=== PATIENT | female | born 1945 | race Caucasian/White ===

== ENCOUNTER 2020-10-11 05:15 | Inpatient (IN) | payer MEDICARE ==
[~2020-10-11] VITALS: Ht 165.1 cm; Wt 99.9 kg
[2020-10-11 07:06] LABS: BASOPHILS ABSOLUTE AUTO 0.04 K/mm3 (0.00-0.23); BASOPHILS PERCENT AUTO 0 % (0-2); EOSINOPHILS ABSOLUTE AUTO 0.04 K/mm3 (0.00-0.68); EOSINOPHILS PERCENT AUTO 0 % (0-6); Hematocrit 50.8 % (33.0-51.0); Hemoglobin 17.1 g/dL (11.5-16.0); IMMATURE GRAN PERCENT AUTO 1 % (0-1); LYMPHOCYTES ABSOLUTE AUTO 1.48 K/mm3 (0.84-5.20); LYMPHOCYTES PERCENT AUTO 10 % (21-46); MONOCYTES ABSOLUTE AUTO 0.71 K/mm3 (0.16-1.47); MONOCYTES PERCENT AUTO 5 % (4-13); Mean Corpuscular HGB 30.4 pg (26.0-34.0); Mean Corpuscular HGB Conc 33.7 g/dL (31.5-36.5); Mean Corpuscular Volume 90 fL (80-100); Mean Platelet Volume 9.5 fL (9.1-12.4); NEUTROPHILS PERCENT AUTO 84 % (41-73); Platelet Count 197 K/mm3 (150-400); RDW Coefficient Variation 11.8 % (11.7-14.2); RDW Standard Deviation 39.1 fL (35.1-46.3); Red Blood Cell Count 5.63 M/mm3 (3.80-5.20); White Blood Cell Count 15.17 K/mm3 (4.00-11.30)
[2020-10-11 07:21] LABS: Albumin, Blood 3.3 g/dL (3.4-5.0); Albumin/Globulin Ratio 0.7 (0.8-1.8); Bilirubin, Total 1.3 mg/dL (0.1-1.0); Calcium, Blood 9.7 mg/dL (8.5-10.1); Creatinine, Blood 1.05 mg/dL (0.40-1.00); Globulin, Blood 4.7 g/dL (2.2-4.0); Potassium, Blood 4.3 mmol/L (3.5-5.5)
[2020-10-11 11:00] LABS: Source, Urine Catheter
[2020-10-11 11:17] LABS: Bilirubin, Urine Neg (Neg); Blood, Urine 2+ (Neg); Glucose Qualitative, Urine 4+ (Neg); Ketones, Urine 2+ (Neg); Leukocyte Esterase, Urine Neg (Neg); Nitrite, Urine Neg (Neg); Protein, Urine 2+ (Neg); Specific Gravity, Urine 1.015 (1.003-1.022); Urobilinogen, Urine NORM (Normal)
[2020-10-11 11:25] LABS: Glucose, Blood 493 mg/dL (70-99)
[2020-10-11 11:27] LABS: Appearance, Urine Clear (Clear); Color, Urine Yellow (P-Yellow)
[2020-10-11 11:28] LABS: Bacteria Not Seen /hpf; Squamous Epithelial Cells Not Seen /hpf (Few); White Blood Cells, Urine Not Seen /hpf (0-5)
[2020-10-11 12:06] LABS: Influenza A, PCR NEGATIVE (NEGATIVE); Influenza B, PCR NEGATIVE (NEGATIVE); Resp Syncytial Virus, PCR NEGATIVE (NEGATIVE); SARS-Cov-2 (COVID-19) PCR, MMC NEGATIVE (NEGATIVE)
[2020-10-11] MEDS ORDERED: FURO20 PO (12:37)
[2020-10-11] MEDS ORDERED: METO100ER PO (12:37)
[2020-10-11] MEDS ORDERED: CLOP75 PO (12:38)
[2020-10-11] MEDS ORDERED: ATOR20 PO (12:38)
[2020-10-11] MEDS ORDERED: ESCI20 PO (12:38)
[2020-10-11] MEDS ORDERED: LISI20 PO (12:39)
[2020-10-11] MEDS ORDERED: TRAZ50 PO (12:39)
--- NOTE | 2020-10-11 12:39 | NUR ---
DEVIN JUAN CONTACT INFO CELL PHONE [phone]
[2020-10-11 15:48] LABS: PCO2 Arterial 50.5 mmHg (35-45); PO2 Arterial 102 mmHg (80-100); pH Blood Arterial 7.39 (7.35-7.45)
[2020-10-11 16:50] LABS: U Amphetamine Screen Not Detected; U Barbituate Screen Not Detected; U Benzodiazapine Screen Not Detected; U Buprenorphine Screen Not Detected; U Cannabinoids Screen Not Detected; U Cocaine Screen Not Detected; U Methadone Screen Not Detected; U Methamphetamine Screen Not Detected; U Opiates Screen Not Detected; U Oxycodone Screen Not Detected; U Phencyclidine Screen Not Detected; U Propoxyphene Screen Not Detected
--- NOTE | 2020-10-11 17:56 | NUR ---
SHIFT SUMMARY SINCE ARRIVAL TO THE UNIT, PT HAS BEEN CONFUSED. HAVING A HARD TIME UNDERSTANDING WHY HER HIP HURTS. PAIN BETTER CONTROLLED W/ PO MEDS. BLOOD SUGARS HAVE BEEN VERY HIGH. DR LEE CALLED ABOUT THIS x 2. IVF INFUSING.
[2020-10-12 04:35] LABS: BASOPHILS ABSOLUTE AUTO 0.01 K/mm3 (0.00-0.23); BASOPHILS PERCENT AUTO 0 % (0-2); EOSINOPHILS ABSOLUTE AUTO 0.03 K/mm3 (0.00-0.68); EOSINOPHILS PERCENT AUTO 0 % (0-6); Hematocrit 45.8 % (33.0-51.0); Hemoglobin 15.1 g/dL (11.5-16.0); IMMATURE GRAN ABSOLUTE AUTO 0.06 K/mm3 (0.00-0.10); IMMATURE GRAN PERCENT AUTO 0 % (0-1); LYMPHOCYTES ABSOLUTE AUTO 1.24 K/mm3 (0.84-5.20); LYMPHOCYTES PERCENT AUTO 8 % (21-46); MONOCYTES ABSOLUTE AUTO 0.93 K/mm3 (0.16-1.47); MONOCYTES PERCENT AUTO 6 % (4-13); Mean Corpuscular HGB 30.3 pg (26.0-34.0); Mean Corpuscular Volume 92 fL (80-100); Mean Platelet Volume 9.8 fL (9.1-12.4); NEUTROPHILS ABSOLUTE AUTO 12.82 K/mm3 (1.96-9.15); NEUTROPHILS PERCENT AUTO 85 % (41-73); Platelet Count 164 K/mm3 (150-400); RDW Coefficient Variation 12.1 % (11.7-14.2); RDW Standard Deviation 41.1 fL (35.1-46.3); Red Blood Cell Count 4.99 M/mm3 (3.80-5.20); White Blood Cell Count 15.09 K/mm3 (4.00-11.30)
[2020-10-12 04:55] LABS: Albumin, Blood 2.9 g/dL (3.4-5.0); Albumin/Globulin Ratio 0.8 (0.8-1.8); Bilirubin, Total 1.2 mg/dL (0.1-1.0); Bun/Creatinine Ratio 25.5 (12.0-20.0); Calcium, Blood 9.1 mg/dL (8.5-10.1); Creatinine, Blood 1.02 mg/dL (0.40-1.00); Globulin, Blood 3.8 g/dL (2.2-4.0); Phosphorus, Blood 3.9 mg/dL (2.5-4.9); Total Protein, Blood 6.7 g/dL (6.4-8.2)
--- NOTE | 2020-10-12 05:03 | NUR ---
SHIFT SUMMARY: PT CONFUSED THROUGHOUT NIGHT. ALERT TO SELF AND FAMILY ONLY. PT WILL RESPOND TO QUESTIONS BUT IS NONSENSICAL. PT ALSO HAVING DIFFICULT TIME FINISHING SENTENCES. PT INTERMITTENTLY PICKING AT THINGS. ATTEMPTING TO PULL OFF PULSE OXIMETER. TAKING OFF OXYGEN. PT INCONTINENT OF STOOL THIS SHIFT. LOPEZ PATENT AND DRAINING TO GRAVITY. 2 MAX ASSIST FOR REPOSITIONING. PAINFUL T/O NIGHT. PT MEDICATED WITH 50MCG OF FENTANYL AND NORCO PER EMAR.
--- NOTE | 2020-10-12 07:45 | NUR ---
pt awake laying in bed iv leaking turned off removed will replace pt painful with any movement
--- NOTE | 2020-10-12 09:56 | NUR ---
dr strong by to see pt earlier dr azul by to see pt
--- NOTE | 2020-10-12 12:19 | NUR ---
meds given as sched pt took off her o2 tried to placed her cpap pt removed put back on her o2 nc kept on improved b/p
--- NOTE | 2020-10-12 15:33 | NUR ---
pt agitated removing oxygen will not keep on fent 25 mcg x2 doses pt spit out her crushed norco with applesuce
--- NOTE | 2020-10-12 15:57 | NUR ---
dr azul called re pt confusion zypismael ordered
--- NOTE | 2020-10-12 17:22 | NUR ---
ASSUMED CARE: REPORT RECIEVED FROM VIVI SAUER. PT RESTING IN BED AT THIS TIME. NO ACUTE NEEDS OR CONCERNS AT THIS TIME.
--- NOTE | 2020-10-12 18:04 | NUR ---
SHIFT SUMMARY: PT RESTING IN BED AT THIS TIME. ZYPREXA GIVEN BY VIVI PRIOR TO TRANSFERRING CARE TO THIS RN. NO ACUTE NEEDS OR CONCERNS AT THIS TIME.
--- NOTE | 2020-10-12 22:12 | NUR ---
ASSUMED CARE AT 1900. PT RESTING IN BED, SLEEPING. BIOX ON. VITALS TAKEN AT ABOUT 2030. PT OPENED EYES TO VERBAL STIMULI, BUT NOT ANSWERING QUESTIONS. WHEN R LEG WAS TOUCHED, PT GRIMACED, MOANED, AND PUT HAND ON HIP. PT WAS NOTED TO HAVE HAD A BM. MEDICATED FOR PAIN PRIOR TO CHANGING. PT CHANGED AND ATTENS PLACED WITH 3X ASSIST, PT REPOSITIONED ON L SIDE SHE SEEMED TO BE MORE COMFORTABLE IN THIS POSITION. PT IS CURRENTLY RESTING IN BED, BED ALARM ON.
[2020-10-13 04:12] LABS: Hematocrit 48.2 % (33.0-51.0); Hemoglobin 15.4 g/dL (11.5-16.0); Mean Corpuscular Volume 94 fL (80-100); Mean Platelet Volume 10.1 fL (9.1-12.4); Platelet Count 159 K/mm3 (150-400); RDW Coefficient Variation 12.2 % (11.7-14.2); RDW Standard Deviation 42.6 fL (35.1-46.3); Red Blood Cell Count 5.13 M/mm3 (3.80-5.20); White Blood Cell Count 13.34 K/mm3 (4.00-11.30)
[2020-10-13 04:28] LABS: Albumin, Blood 2.6 g/dL (3.4-5.0); Anion Gap 2 mmol/L (6-16); Blood Urea Nitrogen 25 mg/dL (8-24); Bun/Creatinine Ratio 24.3 (12.0-20.0); CO2, Blood 33 mmol/L (21-32); Calcium, Blood 8.8 mg/dL (8.5-10.1); Chloride, Blood 106 mmol/L (98-108); Creatinine, Blood 1.03 mg/dL (0.40-1.00); Glomerular Filtration Rate 56 (60-); Glucose, Blood 261 mg/dL (70-99); Phosphorus, Blood 3.6 mg/dL (2.5-4.9); Potassium, Blood 4.1 mmol/L (3.5-5.5); Sodium, Blood 141 mmol/L (136-145)
--- NOTE | 2020-10-13 04:56 | NUR ---
SHIFT SUMMARY PT HAS BEEN SLEEPING MOST OF THE NIGHT, AWAKENING TO VERBAL STIMULI BUT NOT ANSWERING QUESTIONS. PT HAS DEMONSTRATED DISCOMFORT NONVERBALLY AND HAS BEEN MEDICATED PRN PER ORDER. SHE IS USING 4-5L O2 NC WITH CONT. BIOX AT BEDSIDE. PT HAD BM THIS SHIFT. ATTENS PLACED, CHECKED MULT TIMES. LOPEZ IN PLACE, PATENT, OFF FLOOR. RESTING AT THIS TIME, BED ALARM ON.
--- NOTE | 2020-10-13 13:51 | NUR ---
TO DAY SURGERY VIA BED
--- NOTE | 2020-10-13 14:38 | NUR ---
INTO SDS VIA BED FROM SURG FLOOR. History, Chart, Medications and Allergies reviewed before start of procedure.Patient confirms NPO status and agrees with scheduled surgery. Surgical site prepped with 2% Chlorhexidine cloth wipe. Lungs clear T/O to Auscultation.TELEPHONE CONSENT FOR ANESTHESIA, PROCEDURE, AND BLOOD CONSENT OBTAINED FROM SON, DR. PEACE, DR. QUIGLEY, AND CATHY SAUER.
--- NOTE | 2020-10-13 20:05 | NUR ---
SHIFT SUMMARY PT A&OX3, VSS/5LNC(BASELINE), S/P R JUAN R HIP, AQUACEL CDI, ABDUCT/IMMOBILIZER IN PLACE. DENIES PAIN. DENIES N&V, DARIAN PO ADA. LOPEZ PATENT & DRAINING YELLOW URINE, STAT LOCK ON, OFF FLOOR. REPORT GIVEN TO ANGELO SAUER.
[2020-10-14 04:47] LABS: BASOPHILS ABSOLUTE AUTO 0.02 K/mm3 (0.00-0.23); BASOPHILS PERCENT AUTO 0 % (0-2); EOSINOPHILS ABSOLUTE AUTO 0.04 K/mm3 (0.00-0.68); EOSINOPHILS PERCENT AUTO 0 % (0-6); Hematocrit 42.1 % (33.0-51.0); Hemoglobin 13.3 g/dL (11.5-16.0); IMMATURE GRAN ABSOLUTE AUTO 0.05 K/mm3 (0.00-0.10); IMMATURE GRAN PERCENT AUTO 0 % (0-1); LYMPHOCYTES ABSOLUTE AUTO 1.57 K/mm3 (0.84-5.20); LYMPHOCYTES PERCENT AUTO 11 % (21-46); MONOCYTES ABSOLUTE AUTO 1.71 K/mm3 (0.16-1.47); MONOCYTES PERCENT AUTO 12 % (4-13); Mean Corpuscular HGB 30.3 pg (26.0-34.0); Mean Corpuscular HGB Conc 31.6 g/dL (31.5-36.5); Mean Corpuscular Volume 96 fL (80-100); Mean Platelet Volume 9.8 fL (9.1-12.4); NEUTROPHILS ABSOLUTE AUTO 10.48 K/mm3 (1.96-9.15); NEUTROPHILS PERCENT AUTO 76 % (41-73); Platelet Count 136 K/mm3 (150-400); RDW Coefficient Variation 12.2 % (11.7-14.2); RDW Standard Deviation 43.6 fL (35.1-46.3); Red Blood Cell Count 4.39 M/mm3 (3.80-5.20); White Blood Cell Count 13.87 K/mm3 (4.00-11.30)
--- NOTE | 2020-10-14 05:04 | NUR ---
SHIFT SUMMARY PT HAS BEEN A/O X3-4 OVERNIGHT. ANSWERING QUESTIONS APPROPRIATELY. PT DID PULL AN IV OUT THIS SHIFT. WHEN ASKED ABOUT IT, SHE SAID SHE DID NOT REMEMBER PULLING THE IV. PT ALSO REMOVED AQUACEL DRESSING TO R HIP MULT TIMES, AGAIN STATING THAT SHE DID NOT REMEMBER REMOVING DRESSING. INCISION HAS BEEN CLEANED AND NEW AQUACEL REPLACED X3 SO FAR. MEDIPORE TAPE PLACED OVER AQUACEL IN ATTEMPT TO KEEP DRESSING IN PLACE. IMMOBILIZER HAS BEEN IN PLACE OVERNIGHT AND PT HAS BEEN REPOSITIONED MULT TIMES. USING 4L O2 NC WITH O2 SAT ABOVE 94%. PT IS TOLERATING PO INTAKE. LOPEZ IN PLACE, PATENT, OFF FLOOR. PARTIAL BEDBATH COMPLETED THIS SHIFT. PT RESTING AT THIS TIME, BED ALARM ON, CALL LIGHT IN REACH.
[2020-10-14 05:05] LABS: Albumin, Blood 2.4 g/dL (3.4-5.0); Anion Gap 4 mmol/L (6-16); Blood Urea Nitrogen 38 mg/dL (8-24); Bun/Creatinine Ratio 29.2 (12.0-20.0); CO2, Blood 30 mmol/L (21-32); Calcium, Blood 8.3 mg/dL (8.5-10.1); Chloride, Blood 107 mmol/L (98-108); Glomerular Filtration Rate 42 (60-); Glucose, Blood 137 mg/dL (70-99); Phosphorus, Blood 2.7 mg/dL (2.5-4.9); Potassium, Blood 3.2 mmol/L (3.5-5.5); Sodium, Blood 141 mmol/L (136-145)
--- NOTE | 2020-10-14 07:54 | NUR ---
pt sleeping wakes to verbal stimuli pt has bulky dressing c/d/i pt has some dried crust to her l eye
--- NOTE | 2020-10-14 12:04 | NUR ---
DR PEACE BY TO SEE PT
--- NOTE | 2020-10-14 14:49 | NUR ---
pt wakes to verbal and physical stimuli meds given with milk
--- NOTE | 2020-10-14 17:45 | NUR ---
pt still sleeping attempted multiple times to get her to eat and drink
[2020-10-15 04:30] LABS: BASOPHILS ABSOLUTE AUTO 0.02 K/mm3 (0.00-0.23); BASOPHILS PERCENT AUTO 0 % (0-2); EOSINOPHILS ABSOLUTE AUTO 0.04 K/mm3 (0.00-0.68); EOSINOPHILS PERCENT AUTO 0 % (0-6); Hematocrit 44.8 % (33.0-51.0); Hemoglobin 13.8 g/dL (11.5-16.0); IMMATURE GRAN ABSOLUTE AUTO 0.08 K/mm3 (0.00-0.10); IMMATURE GRAN PERCENT AUTO 1 % (0-1); LYMPHOCYTES ABSOLUTE AUTO 0.68 K/mm3 (0.84-5.20); LYMPHOCYTES PERCENT AUTO 6 % (21-46); MONOCYTES ABSOLUTE AUTO 1.19 K/mm3 (0.16-1.47); MONOCYTES PERCENT AUTO 10 % (4-13); Mean Corpuscular HGB 30.2 pg (26.0-34.0); Mean Corpuscular HGB Conc 30.8 g/dL (31.5-36.5); Mean Corpuscular Volume 98 fL (80-100); Mean Platelet Volume 9.7 fL (9.1-12.4); NEUTROPHILS ABSOLUTE AUTO 9.99 K/mm3 (1.96-9.15); NEUTROPHILS PERCENT AUTO 83 % (41-73); Platelet Count 172 K/mm3 (150-400); RDW Coefficient Variation 12.5 % (11.7-14.2); RDW Standard Deviation 45.2 fL (35.1-46.3); Red Blood Cell Count 4.57 M/mm3 (3.80-5.20)
--- NOTE | 2020-10-15 07:37 | NUR ---
PT WITH INCREASED CONFUSION THIS AM. PULLING AT TUBES, TOSSING CALL LIGHT TO THE FLOOR.TAKING GOWN OFF AND EVERY TIME NURSE REPLACES,PT TAKES IT OFF AGAIN. TOSSING BLANKETS,TRYING TO PULL DSNG OFF R HIP.UNABLE TO REORIENT PT TO SITUATION AND LOCATION. SNUGGLED HER IN BLANKETS AND REASSURED HER. PT STARTING TO CALM SOME THIS AM.
[2020-10-15 08:53] LABS: Albumin, Blood 2.4 g/dL (3.4-5.0); Anion Gap 3 mmol/L (6-16); Blood Urea Nitrogen 41 mg/dL (8-24); Bun/Creatinine Ratio 29.3 (12.0-20.0); CO2, Blood 32 mmol/L (21-32); Calcium, Blood 8.6 mg/dL (8.5-10.1); Chloride, Blood 108 mmol/L (98-108); Glomerular Filtration Rate 39 (60-); Glucose, Blood 116 mg/dL (70-99); Phosphorus, Blood 3.6 mg/dL (2.5-4.9); Potassium, Blood 4.8 mmol/L (3.5-5.5); Sodium, Blood 143 mmol/L (136-145)
--- NOTE | 2020-10-15 17:04 | NUR ---
PT AGGITATED AND CONFUSED WHEN DOING PT CARE AND TURNING, CALLS STAFF NAMES. OTHERWISE PT LAYS QUIETLY. PT VERY PAINFUL WITH TURNS, ATTEMPTED TO GIVE HYDROCODONE, AND PT THREW PILL ACROSS ROOM. SPOKE WITH DR. GARSIA CONCERNING PT AGGITATION AND CONFUSION TODAY, SEE NEW ORDERS, FLUIDS INFUSING. WILL CTM
--- NOTE | 2020-10-15 17:51 | NUR ---
SUMMARY: PT IS S/P R JUAN R HIP. PT ALERT, CONTINUES TO BE OREINTED TO SELF ONLY, HAS NON SENSICAL TALK AND AGGITATION AND PAIN WHEN MOVED. ALARM ON. MEPILEX PLACED AT COCCYX, SLIGHT REDNESS NOTED. SURGICAL SITE WNL CURRENTLY, PT PICKING AT DRESSING THIS MORNING, AQUACEL CHANGED. PT HAS NOT ATTEMPTED OOB, HAS NOT PICKED AT DRESSINGS THE REST OF THE DAY. PT HAS TAKEN SMALL AMOUNT OF PO WHEN OFFERED. SPO2 STABLE ON 2L AT THIS TIME, PT HAS REMOVED SEVERAL TIMES AND DESATS TO 88%. COUGH AND DEEP BREATHE ENCOURAGED. PT MEDICATED FOR PAIN AND APPEARS COMFORTABLE CURRENTLY. WILL CTM AND REPORT TO TIFF SAUER.
[2020-10-16 04:38] LABS: BASOPHILS ABSOLUTE AUTO 0.02 K/mm3 (0.00-0.23); BASOPHILS PERCENT AUTO 0 % (0-2); EOSINOPHILS ABSOLUTE AUTO 0.11 K/mm3 (0.00-0.68); EOSINOPHILS PERCENT AUTO 1 % (0-6); Hematocrit 44.5 % (33.0-51.0); Hemoglobin 13.8 g/dL (11.5-16.0); IMMATURE GRAN ABSOLUTE AUTO 0.05 K/mm3 (0.00-0.10); IMMATURE GRAN PERCENT AUTO 1 % (0-1); LYMPHOCYTES ABSOLUTE AUTO 1.31 K/mm3 (0.84-5.20); LYMPHOCYTES PERCENT AUTO 12 % (21-46); MONOCYTES PERCENT AUTO 15 % (4-13); Mean Corpuscular HGB 30.1 pg (26.0-34.0); Mean Corpuscular Volume 97 fL (80-100); NEUTROPHILS PERCENT AUTO 71 % (41-73); Platelet Count 178 K/mm3 (150-400); RDW Coefficient Variation 12.3 % (11.7-14.2); RDW Standard Deviation 44.2 fL (35.1-46.3); Red Blood Cell Count 4.58 M/mm3 (3.80-5.20); White Blood Cell Count 10.79 K/mm3 (4.00-11.30)
[2020-10-16 04:59] LABS: Albumin, Blood 2.2 g/dL (3.4-5.0); Anion Gap 2 mmol/L (6-16); Blood Urea Nitrogen 32 mg/dL (8-24); Bun/Creatinine Ratio 28.8 (12.0-20.0); CO2, Blood 32 mmol/L (21-32); Calcium, Blood 8.9 mg/dL (8.5-10.1); Chloride, Blood 110 mmol/L (98-108); Creatinine, Blood 1.11 mg/dL (0.40-1.00); Glomerular Filtration Rate 51 (60-); Glucose, Blood 152 mg/dL (70-99); Magnesium, Blood 2.2 mg/dL (1.6-2.4); Phosphorus, Blood 2.7 mg/dL (2.5-4.9); Potassium, Blood 4.7 mmol/L (3.5-5.5); Sodium, Blood 144 mmol/L (136-145)
--- NOTE | 2020-10-16 17:19 | NUR ---
SUMMARY PT ATE BREAKFAST AND TOOK MORNING MEDS AND THEN SLEPT T/O DAY. WAKES WHEN SPOKEN TO, DENIES ANY NEEDS AND THEN RETURNS TO SLEEP. SLEPT THROUGH LUNCH. DOES NOT APPEAR TO BE IN ANY DISTRESS. CALL LIGHT IN REACH.
[2020-10-17 04:37] LABS: Albumin, Blood 2.1 g/dL (3.4-5.0); Anion Gap 2 mmol/L (6-16); Blood Urea Nitrogen 28 mg/dL (8-24); Bun/Creatinine Ratio 29.9 (12.0-20.0); CO2, Blood 33 mmol/L (21-32); Calcium, Blood 9.2 mg/dL (8.5-10.1); Chloride, Blood 108 mmol/L (98-108); Creatinine, Blood 0.94 mg/dL (0.40-1.00); Glomerular Filtration Rate >60 (60-); Glucose, Blood 169 mg/dL (70-99); Phosphorus, Blood 2.7 mg/dL (2.5-4.9); Potassium, Blood 4.6 mmol/L (3.5-5.5); Sodium, Blood 143 mmol/L (136-145)
--- NOTE | 2020-10-17 07:41 | NUR ---
SUMMARY PT LESS CONFUSED TONIGHT. COOPERATIVE WT CARE.RENAL LABS ARE WNL THIS . DAY RN AGREES TO CONFIRM IF JESSICA SHOULD BE DCD TODAY.
--- NOTE | 2020-10-17 18:22 | NUR ---
SHIFT SUMMARY PT ORIENTED TO SELF THROUGH OUT SHIFT. FREQUENT NONSENSICAL CONVERSATION AND ANSWERS. CONFUSED ABOUT LOCATION AND SITUATION. PLEASANT AND COOPERATIVE. ABLE TO FOLLOW DIRECTIONS WITH CUES. TOLERATING ADA DIET. TAKES PILLS WHOLE WITH CORKY PUDDING OR APPLE SAUCE. 2 PERSON ASSIST WITH WALKER AND GAIT BELT TO TRANSFER. JESSICA PEREIRA THIS AFTERNOON, ATTENDS IN PLACE. AQUACEL IN PLACE TO RIGHT HIP. ADDUCTOR PILLOW IN PLACE BETWEEN LOWER LEGS. UNABLE TO RECALL HIP PRECAUTIONS WHEN ASKED. WAITING DISCHARGE TO SNF OR [facility] CARE.
--- NOTE | 2020-10-17 22:05 | NUR ---
PT WAS ABLE TO VOID A LARGE AMT, FLOODING THE ATTENDS AND SHEETS, FULL LINEN CHANGE WAS DONE PER DEPUTY REGISTER OF DEEDS WITH ASSISTANCE FOR ANOTHER STAFF MEMBER. PT BP WAS ALSO BETTER ON RE-CHECK, NO NEED FOR ADMINISTRATION OF HYDRALAZINE.
--- NOTE | 2020-10-17 23:10 | NUR ---
RECEIVED REPORT AND ASSUMED CARE OF PT. MALENA IS RESTING QUIETLY IN BED WITH HER EYES CLOSED, RESPIRATIONS EVEN AND UNLABORED. WCTM.
--- NOTE | 2020-10-18 05:20 | NUR ---
SHIFT SUMMARY: MALENA AROUSES EASILY AND RESPONDS APPROPRIATELY. AQUACELL DRY INTACT TO RIGHT HIP, ADDUCTOR PILLOW IN PLACE. ATTENDS IN PLACE, INCONTINENT OF BLADDER. SHE DENIES PAIN THIS MORNING. SHE IS LYING IN BED WITH HER CALL LIGHT IN REACH. WILL REPORT TO DAY SHIFT RN.
--- NOTE | 2020-10-18 11:37 | NUR ---
BOWEL CARE DISCHARGE PLANNING CALLED TO INQUIRE ABOUT NO BM IN 6 DAYS. ONLY BID COLACE ORDERED. CALLED DR GARSIA WHO STATED SHE WOULD PUT IN BOWEL CARE ORDERS. WILL BEGIN AGGRESSIVE BOWEL CARE SOON ORDERS ARE PLACED. SNF BED AVAILABLE SOON PATIENT HAS BM.
--- NOTE | 2020-10-18 17:32 | NUR ---
SHIFT SUMMARY PATIENT CONFUSED BUT PLEASANT AND COOPERATIVE. UP TO CHAIR THIS AFTERNOON. VOIDING WELL WITH OCCASIONAL WET ATTENDS BUT ALSO VOIDS IN COMMODE. IV FLUIDS RUNNING. STARTED AGRESSIVE BOWEL CARE THIS AFTERNOON, OBTAINED ORDERS FROM DR GARSIA. PLAN IS DISCHARGE TO SNF ONCE PATIENT HAS BM. RIGHT HIP AQUACEL C/D/I.
--- NOTE | 2020-10-19 04:54 | NUR ---
SHIFT SUMMARY: NO ACUTE CHANGES THIS SHIFT. PT REMAINS PLEASANTLY CONFUSED. CALM AND COOPERATIVE WITH CARE. PT OUT OF BED TO BSC WITH 2-3 MAX ASSIST AND FWW+GB. INCONTINENT IN ATTENDS. NEW MEPILEX DRESSING PLACED TO COCCYX. PT MEDICATED WITH PO PAIN MEDICATION PER EMAR. TOLERATING PILLS WHOLE IN PUDDING. AWAITING SNF PLACEMENT.
--- NOTE | 2020-10-19 08:53 | NUR ---
OT AT BEDSIDE WORKING WITH PT
--- NOTE | 2020-10-19 09:10 | NUR ---
meds given with breakfast
--- NOTE | 2020-10-19 10:26 | NUR ---
pt still up in recliner chair dr cesar by to see pt fluids given
--- NOTE | 2020-10-19 14:07 | NUR ---
EARLIER PT OOB TO BSC DULCOLAX SUPP GIVEN PER NEW ORDER
--- NOTE | 2020-10-19 17:59 | NUR ---
PT EATING DINNER
--- NOTE | 2020-10-20 06:40 | NUR ---
SUMMARY PT WITH HX SLEEP APNEA. TRIED CPAP TONIGHT, BUT IT WAS NOT EFFECTIVE TO KEEP SATS ABOVE 90% 02 @ 3L.
--- NOTE | 2020-10-20 17:39 | NUR ---
SHIFT SUMMARY PT POST OP FOR R HIP SURGERY. A/O X3 BUT FORGETFUL AT TIMES. UP TO A CHAIR/BSC WITH A 2 PERSON ASSIST. NEEDS A LOT OF COACHING TO AMBULATE. MEDICATED FOR PAIN X1 THIS SHIFT. AQUACELL DRESSING CHANGED THIS SHIFT. VSS.
[2020-10-21 04:08] LABS: BASOPHILS ABSOLUTE AUTO 0.04 K/mm3 (0.00-0.23); BASOPHILS PERCENT AUTO 0 % (0-2); EOSINOPHILS ABSOLUTE AUTO 0.32 K/mm3 (0.00-0.68); EOSINOPHILS PERCENT AUTO 3 % (0-6); Hemoglobin 12.7 g/dL (11.5-16.0); IMMATURE GRAN ABSOLUTE AUTO 0.06 K/mm3 (0.00-0.10); IMMATURE GRAN PERCENT AUTO 1 % (0-1); LYMPHOCYTES ABSOLUTE AUTO 2.11 K/mm3 (0.84-5.20); LYMPHOCYTES PERCENT AUTO 18 % (21-46); MONOCYTES ABSOLUTE AUTO 1.37 K/mm3 (0.16-1.47); MONOCYTES PERCENT AUTO 12 % (4-13); Mean Corpuscular HGB 30.1 pg (26.0-34.0); Mean Corpuscular HGB Conc 31.8 g/dL (31.5-36.5); Mean Corpuscular Volume 95 fL (80-100); Mean Platelet Volume 9.1 fL (9.1-12.4); NEUTROPHILS ABSOLUTE AUTO 7.86 K/mm3 (1.96-9.15); NEUTROPHILS PERCENT AUTO 67 % (41-73); Platelet Count 253 K/mm3 (150-400); RDW Coefficient Variation 11.9 % (11.7-14.2); RDW Standard Deviation 41.2 fL (35.1-46.3); Red Blood Cell Count 4.22 M/mm3 (3.80-5.20); White Blood Cell Count 11.76 K/mm3 (4.00-11.30)
[2020-10-21 04:24] LABS: Anion Gap 0 mmol/L (6-16); Blood Urea Nitrogen 23 mg/dL (8-24); Bun/Creatinine Ratio 26.4 (12.0-20.0); CO2, Blood 38 mmol/L (21-32); Calcium, Blood 9.6 mg/dL (8.5-10.1); Chloride, Blood 104 mmol/L (98-108); Creatinine, Blood 0.87 mg/dL (0.40-1.00); Glomerular Filtration Rate >60 (60-); Glucose, Blood 160 mg/dL (70-99); Magnesium, Blood 1.7 mg/dL (1.6-2.4); Phosphorus, Blood 3.8 mg/dL (2.5-4.9); Potassium, Blood 4.8 mmol/L (3.5-5.5); Sodium, Blood 142 mmol/L (136-145)
--- NOTE | 2020-10-21 07:55 | NUR ---
PT REPORTS BAD H/A 02/04 PO NORCO GIVEN LIGHTS TURNED OFF
--- NOTE | 2020-10-21 07:59 | NUR ---
SUMMARY PT INTERRMITTENTLY CONFUSED TONIGHT,ALTHOUGH DOES NOT APPEAR REALTED TO PAIN MEDS.
--- NOTE | 2020-10-21 09:51 | NUR ---
PT OOB IN RECLINER CHAIR MEPLIX PLACED ON COCCYX MEDS GIVEN EARLER WITH BREAKFAST OT WORKED WITH PT
--- NOTE | 2020-10-21 11:05 | NUR ---
pt working with physical therapy
--- NOTE | 2020-10-21 12:00 | NUR ---
DIETARY BY TO SEE PT PT C/O PAIN TO PHYSICAL THERAPY PO TYLENOL GIVEN VS NORCO DUE TO PT BEING MORE SLEEPY
--- NOTE | 2020-10-21 13:49 | NUR ---
pt sleeping in recliner
--- NOTE | 2020-10-22 04:30 | NUR ---
SHIFT SUMMARY POD#9 RIGHT POSTERIOR HEMIARTHROPLASTY. AAOX4. DISCOMFORT DECREASED WITH X1 NORCO YESTARDAY EVENING. NO NAUSEA/EMESIS. DRESSING TO RIGHT HIP C/D/I WITH ABDUCTOR PILLOW IN PLACE BETWEEN BLE. PPP, DENIES N/T, MOVES TOES WELL BLE. X1 LARGE INCONTINENT VOID IN ATTENDS THIS SHIFT. PT RESTED WELL T/O NIGHT WITH CPAP IN PLACE. NO ACUTE CHANGES OVER NIGHT. PT CURRENTLY RESTING IN BED WITH CALL LIGHT IN REACH.
--- NOTE | 2020-10-22 18:24 | NUR ---
SHIFT SUMMARY PATIENT ALERT TO SELF AND COOPERATIVE THROUGHOUT SHIFT. TOLERATING ADA DIET. MEDICATED FOR PAIN PRN. 1 PERSON ASSIST TO CHAIR AND BACK TO BED. AQUACEL TO RIGHT HIP C/D/I. PLAN TO DISCHARGE TO SNF WHEN BED AVAILABLE.
--- NOTE | 2020-10-23 07:10 | NUR ---
SHIFT SUMMARY PT RESTED WELL T/O NIGHT. AAOX3. DISCOMFORT CONTROLLED WITH X1 NORCO YESTARDAY EVENING. NO NAUSEA/EMESIS. DRESSING TO RIGHT HIP D/C/I. PPP, DENIES N/T, MOVES TOES BLE. NO ACUTE CHANGES OVER NIGHT. BED ALARM ON FOR SAFETY. INCONTINENT IN ATTENDS. PT CURRENTLY RESTING IN BED WITH CALL LIGHT IN REACH.
--- NOTE | 2020-10-23 18:24 | NUR ---
SHIFT SUMMARY PATIENT CONFUSED BUT PLEASANT AND COOPERATIVE THROUGHOUT SHIFT. PATIENT DOES HAVE DIFFICULTY FOLLOWING DIRECTIONS. UP TO CHAIR FOR MEALS. INC OF URINE. MEDICATED FOR PAIN PRN. AQUACEL TO RIGHT HIP C/D/I. TOLERATING ADA DIET WITH INSULIN COVERAGE FOR BLOOD GLUCOSE. PATIENT RESTING IN BED AT THIS TIME.
--- NOTE | 2020-10-24 05:24 | NUR ---
SHIFT SUMMARY PT RESTED WELL T/O NIGHT. AAOX3. INTERMITTENTLY CONFUSED T/O NIGHT. DISCOMFORT DECREASED WITH X1 NORCO YESTARDAY PM. NO NAUSEA/EMESIS. DRESSING TO RIGHT HIP C/D/I. ABDUCTOR PILLOW BETWEEN LEGS. INCONTINENT IN ATTENDS. X1 LARGE FORMED BM THIS SHIFT. BED ALARM ON FOR SAFETY. PT CURRENTLY RESTING IN BED WITH CALL LIGHT IN REACH.
--- NOTE | 2020-10-24 18:12 | NUR ---
SUMMARY NO ACUTE CHANGES T/O SHIFT. PT WORKED W/THERAPY AND SAT UP IN CHAIR. FORGETFUL OF PRECAUTIONS. THERAPY PLACED REMINDER SHEET ON BOARD. PT TOLERATING DIET. MEDICATED ONCE DURING SHIFT FOR PAIN. CALL LIGHT IN REACH.
--- NOTE | 2020-10-25 07:35 | NUR ---
PT VSS T/O NIGHT, HR DID DROP TO 48 WHILE PT SLEEPING. SATS >94% ON 2.5L O2NC. PT CONFUSED AND AGITATED EARLY IN SHIFT, IS MORE PLEASANT AND COOPERATIVE THIS AM. PT VOIDING LARGE INCONTINENT VOIDS, ATTENDS CHANGED PRN. PT REPOSITIONED FREQ T/O NIGHT, IS ASSISTING W/REPOSITIONING IN BED. AWAITING DC PLANS.
--- NOTE | 2020-10-25 17:17 | NUR ---
SUMMARY NO ACUTE CHANGES T/O SHIFT. PT'S MENTATION VARIES BETWEEN ORIENTED AND CONFUSED AT TIMES. BECAME AGITATED THIS AFTERNOON; MEDICATED FOR PAIN. AGITATION HAS DECREASED. PT HAD DIFFICULTY FOLLOWING INSTRUCTION WHEN TRANSFERRING FROM CHAIR TO BED THIS AFTERNOON. MOD TWO PERSON ASSIST. PT RESTING IN BED AT THIS TIME. BED ALARM ON AND CALL LIGHT IN REACH.
--- NOTE | 2020-10-26 04:28 | NUR ---
POD 13 S/P R JUAN R HIP. PT VSS T/O NIGHT; 3L O2 NC IN PLACE WHILE SLEEPING; SATS >94%, HR TRENDING 50-60'S WHILE SLEEPING. DRESSING CDI. ABDUCTOR PILLOW IN PLACE DURING NIGHT. ATTENDS CHANGED PRN. PT REPOSITIONED PRN T/O NIGHT, PROTECTIVE DRESSING TO COCCYX. PT ANXIOUS AND AGITATED AT TIMES, SUPPORT AND REORIENTED PRN. BED ALARM ON FOR SAFETY. CONT TO AWAIT DC PLANNING.
--- NOTE | 2020-10-26 07:45 | NUR ---
pt removed o2 went down to 87 % put back on and went back up to 93 % pt sleepin
--- NOTE | 2020-10-26 09:45 | NUR ---
PT FINISHED WITH BREAKFAST OOB TO RECLINER WITH OT THIS AM MEDS GIVEN PT STATED SHE WOULD LIKE TO LAY BACK A LITTLE FILLS FULL AFTER BREAKFAST REFUSED HER STOOL SOFTENERS
--- NOTE | 2020-10-26 10:23 | NUR ---
OOB TO BSC FOR XL BM
--- NOTE | 2020-10-26 14:10 | NUR ---
pt sitting up in chair req pain meds 1 tab po norco given
--- NOTE | 2020-10-26 18:29 | NUR ---
ASSISTED PT INTO BED FROM RECLINER CHAIR
--- NOTE | 2020-10-27 06:01 | NUR ---
SHIFT SUMMARY PT HAS BEEN ALERT AND CONFUSED OVERNIGHT, AT TIMES BECOMING AGITATED. MED FOR PAIN X1 THIS SHIFT. PT REPORTED PAIN TO BE IN HER BACK AND R HIP. BED ALARM ON FOR SAFETY. ABDUCTOR PILLOW IN PLACE OVERNIGHT. PT IS INCONTINENT; ATTENS ON, CHECKING AND CHANGING PRN. PT WAS ABLE TO GET SOME SLEEP AFTER MED WITH TRAZODONE AND PAIN MEDICATION. RESTING IN BED AT THIS TIME, CALL LIGHT IN REACH.
[2020-10-27 13:11] LABS: Influenza A, PCR NEGATIVE (NEGATIVE); Influenza B, PCR NEGATIVE (NEGATIVE); Resp Syncytial Virus, PCR NEGATIVE (NEGATIVE); SARS-Cov-2 (COVID-19) PCR, MMC NEGATIVE (NEGATIVE)
--- NOTE | 2020-10-27 15:29 | NUR ---
DISCHARGE SUMMARY PT ALERT AND ORIENTED TO SELF. TOLERATING ADA DIET. CONFUSED AT BASELINE. POD 14 FOR RIGHT HIP REPAIR. MELINA REMOVED AND AQUACEL REPLACED. BLOOD GLUCOSE MANAGED WITH INSULIN. DISHARGE ORDERS OBTAINED. DISCHARGE TO SNF ARRANGED BY DISCHARGE PLANNING. IV REMOVED. PATIENT TOLERATED WELL. PT LEFT UNIT VIA MEDICAL TRANSPORT IN WHEELCHAIR AT 1515. CALLED REPORT TO SNF RN.
== END 2020-10-27 15:30 | disposition home or self-care (01) | DRG 522 ==
LOC: ER 05:15 → SURS 08:03
PROVIDERS: Emergency Medicine; Internal Medicine; Orthopaedic Surgery; ADMIT Internal Medicine
PROC: 5A09357 Assistance with Respiratory Ventilation, Less than 24 Consecutive Hours, Continuous Positive Airway Pressure (ICD-10-PCS; 2020-10-13)
PROC: 0SRR0JZ Replacement of Right Hip Joint, Femoral Surface with Synthetic Substitute, Open Approach (ICD-10-PCS; principal; 2020-10-13 14:00)
DX: S72.001A Fracture of unspecified part of neck of right femur, initial encounter for closed fracture (principal); E87.1 Hypo-osmolality and hyponatremia; G93.40 Encephalopathy, unspecified; N17.9 Acute kidney failure, unspecified; J96.11 Chronic respiratory failure with hypoxia; E86.0 Dehydration; Z20.822 Contact with and (suspected) exposure to COVID-19; N18.30 Chronic kidney disease, stage 3 unspecified; I27.21 Secondary pulmonary arterial hypertension; I12.9 Hypertensive chronic kidney disease with stage 1 through stage 4 chronic kidney disease, or unspecified chronic kidney disease; E11.42 Type 2 diabetes mellitus with diabetic polyneuropathy; E11.65 Type 2 diabetes mellitus with hyperglycemia; E11.22 Type 2 diabetes mellitus with diabetic chronic kidney disease; J44.9 Chronic obstructive pulmonary disease, unspecified; I25.10 Atherosclerotic heart disease of native coronary artery without angina pectoris; G47.33 Obstructive sleep apnea (adult) (pediatric); F32.9 Major depressive disorder, single episode, unspecified; Z88.0 Allergy status to penicillin; Z99.81 Dependence on supplemental oxygen; Z79.02 Long term (current) use of antithrombotics/antiplatelets; Z79.899 Other long term (current) drug therapy; W18.30XA Fall on same level, unspecified, initial encounter
CPT/HCPCS: 0241U; 36415; 36600; 51702; 70450; 71045; 72125; 72170; 72192; 73502; 73552; 76377; 80053; 80069; 81001; 82803; 82947; 83036; 83735; 84100; 85025; 85027; 88305; 88311; 93005; 93010; 93306; 94660; 94762; 96374-59; 97110; 97162; 97166; 97530; 97530-CQ; 97535; 99285-25; A9270; C1776; J0171; J0360; J0735; J1650; J1885; J2250; J2405; J2704; J2795; J3010; J7030; J7050; J7120

== ENCOUNTER 2020-12-21 20:12 | Inpatient (IN) | payer MEDICARE ==
[~2020-12-21] VITALS: Ht 167.6 cm; Wt 88.2 kg
[~2020-12-21 20:12] MED LIST changes: -AMLO5 PO; -ASPI81CH PO; -HUMULIN R100 UNIT/1; -HUMULIN R100 UNIT/1 DT; -HUMULIN R100 UNIT/1 SC; -INSULANPEN SC; -LEVE500 PO; -LORA1 PO
[2020-12-21 21:14] LABS: BASOPHILS ABSOLUTE AUTO 0.04 K/mm3 (0.00-0.23); BASOPHILS PERCENT AUTO 0 % (0-2); EOSINOPHILS ABSOLUTE AUTO 0.01 K/mm3 (0.00-0.68); EOSINOPHILS PERCENT AUTO 0 % (0-6); Hematocrit 46.1 % (33.0-51.0); Hemoglobin 15.4 g/dL (11.5-16.0); IMMATURE GRAN ABSOLUTE AUTO 0.07 K/mm3 (0.00-0.10); IMMATURE GRAN PERCENT AUTO 0 % (0-1); LYMPHOCYTES ABSOLUTE AUTO 1.37 K/mm3 (0.84-5.20); LYMPHOCYTES PERCENT AUTO 8 % (21-46); MONOCYTES ABSOLUTE AUTO 0.47 K/mm3 (0.16-1.47); MONOCYTES PERCENT AUTO 3 % (4-13); Mean Corpuscular HGB 30.6 pg (26.0-34.0); Mean Corpuscular HGB Conc 33.4 g/dL (31.5-36.5); Mean Corpuscular Volume 92 fL (80-100); Mean Platelet Volume 9.4 fL (9.1-12.4); NEUTROPHILS ABSOLUTE AUTO 15.94 K/mm3 (1.96-9.15); NEUTROPHILS PERCENT AUTO 89 % (41-73); Platelet Count 273 K/mm3 (150-400); RDW Coefficient Variation 12.6 % (11.7-14.2); RDW Standard Deviation 42.5 fL (35.1-46.3); Red Blood Cell Count 5.04 M/mm3 (3.80-5.20)
[2020-12-21 21:39] LABS: International Normalized Ratio 0.98; Prothrombin Time Results 10.6 Sec (9.7-11.5)
[2020-12-21 21:43] LABS: Alanine Aminotransfer (ALT/SGP 31 U/L (12-78); Albumin, Blood 3.3 g/dL (3.4-5.0); Albumin/Globulin Ratio 0.7 (0.8-1.8); Alk Phos 158 U/L (50-136); Anion Gap 7 mmol/L (6-16); Aspartate Aminotrans (AST/SGOT 35 U/L (12-37); Bilirubin, Total 0.7 mg/dL (0.1-1.0); Blood Urea Nitrogen 24 mg/dL (8-24); Bun/Creatinine Ratio 22.6 (12.0-20.0); CO2, Blood 30 mmol/L (21-32); Calcium, Blood 9.6 mg/dL (8.5-10.1); Chloride, Blood 99 mmol/L (98-108); Creatinine, Blood 1.06 mg/dL (0.40-1.00); Glomerular Filtration Rate 54 (60-); Glucose, Blood 313 mg/dL (70-99); Potassium, Blood 3.7 mmol/L (3.5-5.5); Sodium, Blood 136 mmol/L (136-145); Total Protein, Blood 8.3 g/dL (6.4-8.2)
[2020-12-21 21:46] LABS: Magnesium, Blood 1.9 mg/dL (1.6-2.4); Troponin I 0.026 ng/mL (0.000-0.040)
[2020-12-21 23:22] LABS: Source, Urine Clean Catch
[2020-12-21 23:31] LABS: Bilirubin, Urine Neg (Neg); Blood, Urine 3+ (Neg); Glucose Qualitative, Urine 4+ (Neg); Ketones, Urine 2+ (Neg); Leukocyte Esterase, Urine 1+ (Neg); Nitrite, Urine Neg (Neg); Protein, Urine 3+ (Neg); Urobilinogen, Urine NORM (Normal)
[2020-12-21 23:32] LABS: Appearance, Urine Clear (Clear); Color, Urine Yellow (P-Yellow)
[2020-12-21 23:38] LABS: Bacteria Mod /hpf; Squamous Epithelial Cells Not Seen /hpf (Few); White Blood Cells, Urine 25-50 /hpf (0-5)
[2020-12-21 23:46] LABS: U Amphetamine Screen Not Detected; U Barbituate Screen Not Detected; U Benzodiazapine Screen DETECTED; U Buprenorphine Screen Not Detected; U Cannabinoids Screen Not Detected; U Cocaine Screen Not Detected; U Methadone Screen Not Detected; U Methamphetamine Screen Not Detected; U Opiates Screen Not Detected; U Oxycodone Screen Not Detected; U Phencyclidine Screen Not Detected; U Propoxyphene Screen Not Detected
[2020-12-22 00:40] LABS: Campylobacter Sp Not Detected (NOT DETECT); Enteroaggregative E. coli-EAEC Not Detected (NOT DETECT); Enterotoxigenic E. coli-ETEC Not Detected (NOT DETECT); Plesiomonas Shigelloides Not Detected (NOT DETECT); Salmonella Sp Not Detected (NOT DETECT); Vibrio Cholerae Not Detected (NOT DETECT); Vibrio Sp Not Detected (NOT DETECT); Yersinia Enterocolitica Not Detected (NOT DETECT)
[2020-12-22 00:41] LABS: Adenovirus F 40/41 Not Detected (NOT DETECT); Astrovirus Not Detected (NOT DETECT); Cryptosporidium Not Detected (NOT DETECT); Cyclospora Cayetanensis Not Detected (NOT DETECT); E. Coli O157 Not Detected (NOT DETECT); Entamoeba Histolytica Not Detected (NOT DETECT); Enteropathogenic E. coli-EPEC Not Detected (NOT DETECT); Giardia Lamblia Not Detected (NOT DETECT); Norovirus GI/GII Not Detected (NOT DETECT); Rotavirus A Not Detected (NOT DETECT); Sapovirus Not Detected (NOT DETECT); Shiga Toxin-prod E. coli-STEC Not Detected (NOT DETECT); Shigella/Enteroin E. coli-EIEC Not Detected (NOT DETECT)
[2020-12-22 03:37] LABS: BASOPHILS ABSOLUTE AUTO 0.04 K/mm3 (0.00-0.23); BASOPHILS PERCENT AUTO 0 % (0-2); EOSINOPHILS PERCENT AUTO 0 % (0-6); Hemoglobin 16.7 g/dL (11.5-16.0); IMMATURE GRAN ABSOLUTE AUTO 0.08 K/mm3 (0.00-0.10); IMMATURE GRAN PERCENT AUTO 0 % (0-1); LYMPHOCYTES PERCENT AUTO 8 % (21-46); MONOCYTES ABSOLUTE AUTO 0.51 K/mm3 (0.16-1.47); MONOCYTES PERCENT AUTO 3 % (4-13); Mean Corpuscular HGB 30.6 pg (26.0-34.0); Mean Corpuscular HGB Conc 34.1 g/dL (31.5-36.5); Mean Corpuscular Volume 90 fL (80-100); Mean Platelet Volume 9.3 fL (9.1-12.4); NEUTROPHILS ABSOLUTE AUTO 16.93 K/mm3 (1.96-9.15); NEUTROPHILS PERCENT AUTO 89 % (41-73); Platelet Count 249 K/mm3 (150-400); RDW Coefficient Variation 12.6 % (11.7-14.2); RDW Standard Deviation 41.7 fL (35.1-46.3); Red Blood Cell Count 5.46 M/mm3 (3.80-5.20); White Blood Cell Count 19.06 K/mm3 (4.00-11.30)
[2020-12-22 03:54] LABS: Albumin, Blood 3.5 g/dL (3.4-5.0); Albumin/Globulin Ratio 0.7 (0.8-1.8); Bilirubin, Total 1.5 mg/dL (0.1-1.0); Bun/Creatinine Ratio 23.7 (12.0-20.0); Calcium, Blood 9.8 mg/dL (8.5-10.1); Creatinine, Blood 1.14 mg/dL (0.40-1.00); Globulin, Blood 5.1 g/dL (2.2-4.0); Potassium, Blood 3.2 mmol/L (3.5-5.5); Total Protein, Blood 8.6 g/dL (6.4-8.2)
[2020-12-22] MEDS ORDERED: LORA1 PO (04:42)
[2020-12-22] MEDS ORDERED: HUMULIN R100 UNIT/1 SC ×3 (04:48→04:56)
[2020-12-22] MEDS ORDERED: HUMULIN R100 UNIT/1 (04:51)
[2020-12-22] MEDS ORDERED: HUMULIN R100 UNIT/1 DT (04:54)
--- NOTE | 2020-12-22 06:30 | NUR ---
PT HAS BEEN VERY RESTLESS IN BED. TENDS TO TURN HERSELF AGGRESSIVELY IN BED TOWARDS HER LEFT AND WILL STRIKE THE RAILING WITH HER HAND OR KNEE THEN "OW". PT NOT REDIRECTABLE. HAVE ADDED TO PADDING OF SIDE RAIL FOR PT SAFETY. HAVE CALLED DR SIMS SEVERAL TIMES THIS NIGHT WITH PT UPDATES. ORDERS HAVE BEEN RECEIVED. PT HAS RESPONDED TO IV HYDRALAZINE 20 MG FOR BLOOD PRESSURE CONTROL. WILL CONTINUE TO MONITOR PT, AND WILL REPORT OFF TO ONCOMING RN.
--- NOTE | 2020-12-22 07:52 | NUR ---
[place] of Care: Care assumed at 0700hr, bedside report received from NOC shift RN. Patient very restless in bed, unable to follow any commands or respond to verbal stimuli. Withdraws to noxious stimuli, and frequently turns self to left side. Patient also moan to noxious stimuli, attempts to speak but speech is very garbled. Pupils equal and sluggish to light, nystagmus to both eyes. VSS stable, with BP elevated to systolic of 150's-170's, HR in low 100's, sinus with PVC's, SpO2- 96-98% on RA. Reflux lactic acid received at 0715hr, showed increase t0 8.0. Call placed to Dr. Sadler to report lab values and express concern for patient's condition. Informed Dr. Sadler would review pt's chart and report to room to assess patient in 15-20min. Attempted to call patient's son to update on patient's condition, unable to reach her son but left voicemail. Will continue to monitor.
--- NOTE | 2020-12-22 09:58 | NUR ---
Update: Call placed to Dr. Rodriguez at approx 0900hr to inform him of provider consult and update on patient's condition, informed that Dr. Rodriguez would be to unit in 15min. Dr. Rodriguez then assessed patient at approx 0920hr, no change in condition compared to shift change. Received instructions to start precedex gtt and give prn ativan in attempt to sedate patient. Sedation needed to allow for MRI scan and lumbar puncture. Also received several orders for Abx and dexamethasone. Call placed to imaging to assess time for MRI scan, informed by lead technician that scan would have to wait until approx 1430hr, but that tech would talk with supervisor soldering to attempt to complete scan at earlier time. MRI screening form completed by this RN with patient's son (phone call), form faxed to lead technician. Also confirmed code status (Full) with patients's son. Precedex gtt started at 0.3mcg/kg/hr at approx 0930hr, then titrated up to 0.5mcg at 1000hr. Patient remains restless and decreasing in activity. VS remains stable, will continue to monitor.
--- NOTE | 2020-12-22 13:08 | NUR ---
Update: Patient remained restless and agitated with precedex gtt at 0.7mcg/kg/hr and prn Ativan. Received permission to titrate precedex up to 1.4mcg/kg/hr per Dr. Rodriguez. With precedex at 1.4mcg, patient slowly became sedated, but also began to hypoventilate, SpO2-90-94%. RT and Dr. Rodriguez then called to room r/t concern/need for intubation, Precedex gtt also stopped at that time. Dr. Rodriguez to room, received order to place patient on CPAP, and start precedex at 0.7mcg when patient began to rouse. Intubation held r/t need for MRI scan to direct plan of care. Patient slowly began to rouse, and then again became very restless/agitated. Precedex gtt started at 0.7mcg, with little to no effect. Prn Ativan then given (1mg) which slightly decreased restlessness. Then spoke with environmental technical officer, who informed staff that MRi would take place at 1230hr. Received orders per Dr. Rodriguez for prn Versed to be given before the MRI. x2mg prn Versed given before transport to MRI, with good effect noted. MRI completed without difficulty, left unit approx 1230hr, returned approx 1300hr. Patient remains on CPAP with auto inspiratory pressure, 3-5L bleed-in. VSS remain stable, SpO2- 90-96%, BP stable, HR shows sinus in the 60's with less frequent PVC's. Received plan from Dr. Rodriguez to wait on performing LP until official read of MRI received. Plan for this RN or Dr. Rodriguez to call and update patient's son when MRI results received. Will continue to monitor.
[2020-12-22 15:05] LABS: PCO2 Arterial 41.6 mmHg (35-45); PO2 Arterial 93.3 mmHg (80-100)
[2020-12-22 17:34] LABS: Appearance, CSF Clear (Clear); Color, CSF No Color (No Color); RBC Count, CSF 170 /mm3 (0-0); RBC Count, CSF 195 /mm3 (0-0); WBC Count, CSF 2 /mm3 (0-5); WBC Count, CSF 6 /mm3 (0-5)
[2020-12-22 18:22] LABS: Lymphocytes, CSF 38 % (40-80); Monocytes, CSF 44 % (15-45); Neutrophils, CSF 18 % (0-6)
--- NOTE | 2020-12-22 18:29 | NUR ---
Shift Summary: See previous notes r/t progress throughout the day. Precedex gtt stopped approx 1330hr, r/t HR decrease to the 50's, BP remained stable. Hr slowly increased to 60's-70's throughout remainder of shift. MRI results received which showed acute and sub-acute CVA's. Dr. Rodriguez informed this RN he remained suspicious for infectious component causing altered mental status. Bedside LP then performed by Dr. Rodriguez, but unable to obtain specimen. Flouro-guided LP then ordered .Patient transferred to imaging approx 1500hr, LP obtained by Dr. Arcos without difficulty. No change in neuro status throughout remainder of shift. Prn Versed and fentanyl effective to manage restlessness/agitation, given obtain procedures throughout the day. Patient remains unresponsive to verbal stimuli and not able to follow any commands. Minimal garbled speech or moans when performing cares. VS remain stable. Remains on CPAP with auto inspiratory pressure, 5L bleed-in. Will continue to monitor until report to NOC kaila
[2020-12-22 18:32] LABS: Lymphocytes, CSF 39 % (40-80); Monocytes, CSF 43 % (15-45); Neutrophils, CSF 18 % (0-6)
[2020-12-22 18:46] LABS: Cryptococcus Neoformans/Gattii Not Detected (NOT DETECT); Enterovirus Not Detected (NOT DETECT); Escherichia Coli K1 Not Detected (NOT DETECT); Haemophilus Influenza Not Detected (NOT DETECT); Herpes Simplex Virus 1 Not Detected (NOT DETECT); Herpes Simplex Virus 2 Not Detected (NOT DETECT); Human Herpesvirus 6 Not Detected (NOT DETECT); Human Parechovirus Not Detected (NOT DETECT); Listeria Monocytogenes Not Detected (NOT DETECT); Neisseria Meningitidis Not Detected (NOT DETECT); Streptococcus Agalactiae Not Detected (NOT DETECT); Streptococcus Pneumoniae Not Detected (NOT DETECT); Varicella Zoster Virus Not Detected (NOT DETECT)
--- NOTE | 2020-12-22 19:45 | NUR ---
ASSUMED PT CARE FROM CAMACHO RAE AT 1915 PT LYING IN BED NOTED TO RESPOND TO VERBAL/NOXIOUS STIMULI. DOES NOT FOLLOW COMMANDS. STARTS WITHDRAWALING FROM ANY NOXIOUS STIMULI. BECOMES RESTLESS AND AGITATED EASILY. DOES NOT VERBALIZE OR FORM ANY WORDS; ONLY NOTED TO MAKE SOUNDS. PT NOTED TO HAVE SOME NYSTAGMUS NOTED; PERRLA NOTED TO BE 3MM. PT NOTED TO BE MOVING ALL EXTREMITIES; UNABLE TO DETERMINE EQUAL STRENGTH D/T PT NOT FOLLOWING COMMANDS. PT IS ON BIPAP V30 SERIES; 07/03 WITH 3L OXYGEN BLEEDING IN; SPO2 >95%; RR 15. PT NOTED TO BE NSR WITH OCCASIONAL PVC'S; HR 70-80'S. BP STABLE AT THIS TIME. PT HAS LR INFUSING AT 100MLS/HR TO LEFT UPPER ARM POWERGLIDE. RIGHT UPPER ARM POWERGLIDE IS SL. PT REMAINS IN BILATERAL SOFT WRIST RESTRAINTS D/T PULLING AT TUBES/LINES. LOPEZ CATHETER IS PATENT AND DRAINING CLEAR, URSULA COLORED URINE TO GRAVITY. WILL CONTINUE TO MONITOR.
--- NOTE | 2020-12-23 00:51 | NUR ---
REASSESSMENT PT ABLE TO OPEN EYES TO VERBAL STIMULI AND TRACK OBJECTS. ABLE TO FOLLOW SIMPLE COMMANDS AND ONLY ABLE TO ANSWER YES/NO TO QUESTIONS. UNABLE TO SPEAK IN SENTENCES. PT STILL VERY RESTLESS AND PULLING AT LINES/TUBES; THEREFORE, LEFT IN BILATERAL SOFT WRIST RESTRAINTS D/T PT AT RISK FOR PULLING OUT IV'S AND LOPEZ CATHETER. WILL CONTINUE TO MONITOR.
[2020-12-23 04:05] LABS: BASOPHILS ABSOLUTE AUTO 0.04 K/mm3 (0.00-0.23); BASOPHILS PERCENT AUTO 0 % (0-2); EOSINOPHILS PERCENT AUTO 0 % (0-6); Hematocrit 36.8 % (33.0-51.0); Hemoglobin 12.3 g/dL (11.5-16.0); IMMATURE GRAN ABSOLUTE AUTO 0.14 K/mm3 (0.00-0.10); IMMATURE GRAN PERCENT AUTO 1 % (0-1); LYMPHOCYTES ABSOLUTE AUTO 1.52 K/mm3 (0.84-5.20); LYMPHOCYTES PERCENT AUTO 6 % (21-46); MONOCYTES ABSOLUTE AUTO 1.07 K/mm3 (0.16-1.47); MONOCYTES PERCENT AUTO 4 % (4-13); Mean Corpuscular HGB Conc 33.4 g/dL (31.5-36.5); Mean Corpuscular Volume 93 fL (80-100); Mean Platelet Volume 9.5 fL (9.1-12.4); NEUTROPHILS ABSOLUTE AUTO 23.86 K/mm3 (1.96-9.15); NEUTROPHILS PERCENT AUTO 90 % (41-73); Platelet Count 163 K/mm3 (150-400); RDW Coefficient Variation 13.2 % (11.7-14.2); RDW Standard Deviation 45.1 fL (35.1-46.3); Red Blood Cell Count 3.97 M/mm3 (3.80-5.20); White Blood Cell Count 26.63 K/mm3 (4.00-11.30)
[2020-12-23 04:24] LABS: Albumin, Blood 2.6 g/dL (3.4-5.0); Anion Gap 7 mmol/L (6-16); Blood Urea Nitrogen 43 mg/dL (8-24); Bun/Creatinine Ratio 22.3 (12.0-20.0); CO2, Blood 27 mmol/L (21-32); Calcium, Blood 8.2 mg/dL (8.5-10.1); Chloride, Blood 105 mmol/L (98-108); Creatinine, Blood 1.93 mg/dL (0.40-1.00); Glomerular Filtration Rate 27 (60-); Glucose, Blood 177 mg/dL (70-99); Phosphorus, Blood 2.7 mg/dL (2.5-4.9); Potassium, Blood 3.5 mmol/L (3.5-5.5); Sodium, Blood 139 mmol/L (136-145)
--- NOTE | 2020-12-23 05:44 | NUR ---
END OF SHIFT SUMMARY PT IS ALERT AND ORIENTED TO SELF. ABLE TO FOLLOW DIRECTIONS. STILL NOTED TO GET STARTLED TO ANY NOXIOUS STIMULI WHERE SHE STARTS PULLING AT LINES/TUBES; THEREFORE, SHE REMAINS IN BILATERAL SOFT WRIST RESTRAINTS. SHE IS NOW ABLE TO SAY MORE THAN YES/NO TO QUESTIONS. SHE CAN IDENTIFY HER NAME, WELL ACKNOWLEDGE SHE HAS FAMILY. FORGETFUL TO PLACE AND TIME; HOWEVER, ABLE TO SPEAK IN SENTENCES. PT REMAINS WITH NO FACIAL DROOP, RIGHT ARM WEAKER THAN LEFT; HOWEVER, SHE IS STILL ABLE TO MOVE ALL EXTREMITIES. PUPILS ARE RESPONSIVE TO LIGHT AND EQUAL; 3MM. PT SWITCHED FROM BIPAP TO NC AT 3L OF OXYGEN AROUND 0030 D/T REDNESS NOTED AROUND FACE WHERE MASK CONTACTED, WELL THE NEED FOR A BIPAP BREAK; WHICH PT TOLERATED WELL AND REMAINED OFF BIPAP. LR REMAINS AT 100MLS/HR VIA POWERGLIDE TO RIGHT UPPER ARM. LOPEZ CATHETER DRAINING CLEAR, URSULA COLORED URINE WITH FOUL ODOR NOTED. PT DENIES ANY PAIN. NO SEIZURE LIKE ACTIVITY NOTED THIS SHIFT. WILL CONTINUE TO MONITOR UNTIL REPORT IS HANDED OFF TO ONCOMING RN.
--- NOTE | 2020-12-23 07:45 | NUR ---
ASSUMED CARE RECEIVED REPORT FROM CAMACHO LUCERO. PT IS SLEEPING IN BED, IN A SINUS RHYTHM WITH A 1ST DEGREE AV DELAY, AND PVCs (OFTEN EVERY 4TH BEAT, BUT NOT CONSISTENTLY). BP SOFT WHEN ASLEEP, MAP >60; HR 60s. LR INFUSING 100 ML/HR, PRECEDEX ON STANDBY. 3L NC, SPO2 94%. BED LOW AND LOCKED. RESTRAINTS: SWB, SECURED TO PT AND BED.
--- NOTE | 2020-12-23 08:30 | NUR ---
UPDATE DR. VALDES AND THIS RN ENTERED ROOM AND WOKE UP PT. SHE WOKE UP TO VERBAL STIMULI, WAS MILDLY FRIGHTENED WHEN STIMULATED BUT WAS ORIENTED TO SELF, PLACE (JUST TO [facility], NOT [facility], AND NOT WALLING), AND HER SON. SHE DENIES PAIN, SHE DENIES NEEDING ANYTHING BUT A WARM BLANKET AT THE MOMENT. SHE CONTINUES TO APPEAR CONFUSED OR ISN'T COMPREHENDING EVERYTHING WE ARE SAYING BUT IS AGREEABLE TO EVERYTHING. SPEECH THERAPY CONSULTED. DR. VALDES STATES A STATUS CHANGE TO PCU IS OKAY, IF APPROVED BY DR. ABREU. SHE IS LYING DOWN IN BED, FOLLOWING DIRECTIONS. SWB RESTRAINTS REMOVED @ 0800. BED LOW AND LOCKED. CALL LIGHT WITHIN REACH. WILL CONTINUE TO MONITOR.
[2020-12-23 10:24] LABS: Vancomycin, Random 18.5 ug/mL
--- NOTE | 2020-12-23 14:12 | NUR ---
UPDATE BLOOD PRESSURE HAS BEEN ON THE LOWER END, BUT AFTER RECEIVING 25g OF ALBUMIN IV - BP HAS IMPROVED, MAP > 65. PT DENIES CHEST/BACK PAIN, SOB, AND NAUSEA. ONLY C/O HAVING BRUISES, AND EARLIER IN THE MORNING SHE HAD A "PINS AND NEEDLES" SENSATION IN HER LEFT INDEX FINGER AND THUMB. SILK WINDING MACHINE OPERATOR WAS EQUAL BILATERALLY, NO FACIAL DROOPING, PT CAN MOVE ALL EXTREMITIES IN EQUAL STRENGTH. PT IS ABLE TO MAKE NEEDS KNOWN, AND USE CALL LIGHT. SHE DOES STRUGGLE SOMETIMES WITH FINDING THE 'RIGHT WORD' BUT OVERALL SHE IS ABLE TO COMMUNICATE WITH NURSING STAFF WELL.
--- NOTE | 2020-12-23 17:42 | NUR ---
UPDATE- END OF SHIFT PT IS ALERT AND ORIENTED X 3-4, STRUGGLES WITH HER MEMORY AND FINDING THE RIGHT WORDS TO SAY SOMETIMES. SHE KNOWS SHE FELL DOWN, AND SHE STATES SHE HAS A CONCUSSION - BUT HER DETAILS ARE INCONSISTENT AT TIMES. SHE DENIES PAIN IN HER CHEST, BACK AND HER STOMACH (UNLESS HER STOMACH IS PALPATED - THEN IT HURTS, DR ABREU IS AWARE). SHE IS ON 2L NC, AND SPO2 IS > 92%; SHE STATES SHE IS ON 2-3L OF OXYGEN AT HOME. SHE IS SALINE LOCKED, LR WAS DCd PT IS HAVING PO INTAKE, SPEECH THERAPY HAS EVALUATED PT TODAY AND APPROVED NECTAR THICK, PUREE DIET, WITH THIN LIQUIDS. BUT NO STRAWS AND MEDS-WHOLE VIA APPLE SAUCE. PT TOLERATING DIET WELL AND HAVING GOOD INTAKE. SON=DRAKE, CAME IN TODAY AND EXPRESSED CONCERN ABOUT FUTURE PLACEMENT OF PATIENT. STATED THAT [facility] ([facility]) WAS POTENTIALLY ARRANGING FOR MALENA TO BE PLACED IN [facility] IN [place], [place]. BUT DRAKE HAS NOT HEARD BACK ON THIS FOR WEEKS. HOPEFULLY THIS CAN BE FOLLOWED UP ON - PT WILL MOST LIKELY NEED 24 HOUR NURSING CARE GOING FORWARD. PHYSICAL THERAPY EVALUATED PT TODAY, AND STATED THAT THE ONLY REASON THE PT DIDN'T GET UP TODAY - WAS DUE TO SOME ANXIETY AND LIGHTHEADEDNESS FROM SITTING UP TOO QUICKLY; SHE SAID THE PT SEEMED A LITTLE IMPULSIVE WITH MOVEMENTS. BED LOW AND LOCKED. PT INDEPENDENT IN BED, REPOSITIONING SELF AND BOOSTING SELF IN BED.
[2020-12-24 04:47] LABS: BASOPHILS ABSOLUTE AUTO 0.02 K/mm3 (0.00-0.23); BASOPHILS PERCENT AUTO 0 % (0-2); EOSINOPHILS PERCENT AUTO 0 % (0-6); Hematocrit 36.4 % (33.0-51.0); Hemoglobin 11.9 g/dL (11.5-16.0); IMMATURE GRAN PERCENT AUTO 1 % (0-1); LYMPHOCYTES ABSOLUTE AUTO 1.28 K/mm3 (0.84-5.20); LYMPHOCYTES PERCENT AUTO 6 % (21-46); MONOCYTES ABSOLUTE AUTO 1.47 K/mm3 (0.16-1.47); MONOCYTES PERCENT AUTO 6 % (4-13); Mean Corpuscular HGB 30.9 pg (26.0-34.0); Mean Corpuscular HGB Conc 32.7 g/dL (31.5-36.5); Mean Corpuscular Volume 95 fL (80-100); Mean Platelet Volume 10.6 fL (9.1-12.4); NEUTROPHILS ABSOLUTE AUTO 20.35 K/mm3 (1.96-9.15); NEUTROPHILS PERCENT AUTO 87 % (41-73); Platelet Count 165 K/mm3 (150-400); RDW Coefficient Variation 13.3 % (11.7-14.2); RDW Standard Deviation 46.6 fL (35.1-46.3); Red Blood Cell Count 3.85 M/mm3 (3.80-5.20); White Blood Cell Count 23.32 K/mm3 (4.00-11.30)
[2020-12-24 05:03] LABS: Albumin, Blood 3.1 g/dL (3.4-5.0); Anion Gap 2 mmol/L (6-16); Blood Urea Nitrogen 57 mg/dL (8-24); Bun/Creatinine Ratio 26.4 (12.0-20.0); CO2, Blood 30 mmol/L (21-32); Calcium, Blood 8.5 mg/dL (8.5-10.1); Chloride, Blood 108 mmol/L (98-108); Creatinine, Blood 2.16 mg/dL (0.40-1.00); Glomerular Filtration Rate 24 (60-); Glucose, Blood 290 mg/dL (70-99); Phosphorus, Blood 3.3 mg/dL (2.5-4.9); Potassium, Blood 4.1 mmol/L (3.5-5.5); Sodium, Blood 140 mmol/L (136-145)
--- NOTE | 2020-12-24 06:07 | NUR ---
SHIFT SUMMARY PATIENT IS ALERT AND ORIENTED X3, FORGETFUL AND HAS TROUBLE FINISHING HER SENTENCE AND FINDING WORDS AT TIMES. NEEDS REDIRECTED OFTEN AND PULLS AT CORDS AND OXYGEN. PROVIDED A DISTRACTION VEST FOR THE PATIENT. PATIENT PULLED OXYGEN OFF CONSTANTLY BUT 02 SATS HAVE BEEN >93% ON RA. MEDS GIVEN IN APPLESAUCE. PATIENT HAS BEEN SR-SB WITH PVCs. AWAKE MOST THE NIGHT. PATIENT HAD LARGE SOFT INCONTINENT BM, BED BATH PROVIDED. LOPEZ DRAINING.
--- NOTE | 2020-12-24 11:41 | NUR ---
REPORT GIVEN TO VERÓNICA SAUER. RN AWARE THAT PT HAS BEEN IMPULSIVE AND CONFUSED AT TIMES BUT EASILY REORIENTABLE. CALL TO PT'S SON DRAKE TO GIVE UPDATE OF NEW ROOM LOCATION. PT TRANSFERRED VIA BED BY CORRECTIVE THERAPY AIDE STAFF.
--- NOTE | 2020-12-24 16:48 | NUR ---
SHIFT SUMMARY PT TRANSFERRED TO UNIT FROM ICU THIS SHIFT. PT IS A&O TO SELF AND SITUATION, PT IS PLEASANTLY CONFUSED, REDIRECTABLE, VERY FORGETFUL. PT ABLE TO FOLLOW SIMPLE INSTRUCTIONS FROM STAFF. PT NOTED TO REMOVE BY HERSELF MULTIPLE TIMES. PT REQUIRES 2P MAX ASSIST WITH TRANSFERS. NO C/O PAIN OR ANY DISCOMFORT. DENIES CP, SOB, OR N&V. PT CALM AND COMFORTABLE IN BED AT THIS TIME. BED AT LOWEST POSITION W/ ALARM ON FOR SAFETY. CALL LIGHT WITHIN REACH.
--- NOTE | 2020-12-25 04:36 | NUR ---
SHIFT SUMMARY LYING IN SEMI FOWLERS WITH EYES OPEN, HAND RESTED OFF AND ON. AAO X3, RUFF, FOLLOWS ALL COMMANDS. CONFUSION NOTED AT TIME, EASILY REORIENTED. HAS BEEN PLEASANT AND COOPERATIVE WITH CARE. REMOVED POWERGLIDE WITH CATHTIP INTACT. NEW 22G PIV PLACED TO RIGHT FA X2 ATTEMPTS, IVF INFUSED UNTIL PT REMOVED CANULA WITH TIP INTACT. COMPLETE GOWN AND LINEN CHANGE COMPLTETED. WILL PLACE NEW IV SITE. SAFETY MEASURES IN PLACE. WILL CONTINUE TO MONITOR AND ADDRESS NEEDS AND CHANGES THROUGHOUT REMAINDER OF SHIFT, AND GIVE HAND OFF TO ONCOMING SHIFT USING SBAR.
[2020-12-25 04:57] LABS: BASOPHILS ABSOLUTE AUTO 0.02 K/mm3 (0.00-0.23); BASOPHILS PERCENT AUTO 0 % (0-2); EOSINOPHILS ABSOLUTE AUTO 0.02 K/mm3 (0.00-0.68); EOSINOPHILS PERCENT AUTO 0 % (0-6); Hematocrit 38.1 % (33.0-51.0); Hemoglobin 12.2 g/dL (11.5-16.0); IMMATURE GRAN ABSOLUTE AUTO 0.07 K/mm3 (0.00-0.10); IMMATURE GRAN PERCENT AUTO 1 % (0-1); LYMPHOCYTES ABSOLUTE AUTO 1.86 K/mm3 (0.84-5.20); LYMPHOCYTES PERCENT AUTO 12 % (21-46); MONOCYTES ABSOLUTE AUTO 1.34 K/mm3 (0.16-1.47); MONOCYTES PERCENT AUTO 9 % (4-13); Mean Corpuscular HGB 30.7 pg (26.0-34.0); Mean Corpuscular Volume 96 fL (80-100); Mean Platelet Volume 10.5 fL (9.1-12.4); NEUTROPHILS ABSOLUTE AUTO 11.96 K/mm3 (1.96-9.15); NEUTROPHILS PERCENT AUTO 78 % (41-73); Platelet Count 138 K/mm3 (150-400); RDW Coefficient Variation 13.2 % (11.7-14.2); Red Blood Cell Count 3.97 M/mm3 (3.80-5.20); White Blood Cell Count 15.27 K/mm3 (4.00-11.30)
[2020-12-25 05:13] LABS: Albumin, Blood 2.9 g/dL (3.4-5.0); Anion Gap 3 mmol/L (6-16); Blood Urea Nitrogen 40 mg/dL (8-24); Bun/Creatinine Ratio 26.8 (12.0-20.0); CO2, Blood 27 mmol/L (21-32); Calcium, Blood 8.3 mg/dL (8.5-10.1); Chloride, Blood 112 mmol/L (98-108); Creatinine, Blood 1.49 mg/dL (0.40-1.00); Glomerular Filtration Rate 36 (60-); Glucose, Blood 258 mg/dL (70-99); Phosphorus, Blood 2.7 mg/dL (2.5-4.9); Potassium, Blood 4.4 mmol/L (3.5-5.5); Sodium, Blood 142 mmol/L (136-145)
--- NOTE | 2020-12-25 12:36 | NUR ---
Pt pulled cap off IV and had a small amount of sanguineous drainage. IV tubing was on ground and therefore discarded. New IV tubing was obtained and connedted. IV port cleansed with alchohol and new cap placed, flushed well with 10 mL NS. Dressing and IV secured with fabric adhesive tape and lightly wrapped coban. rocephin was then completed.
--- NOTE | 2020-12-25 13:50 | NUR ---
REPORT GIVEN TO TETE SAUER. PT TRANSPORTED TO ROOM 351.
--- NOTE | 2020-12-25 14:00 | NUR ---
ASSUMED CARE OF PT UPON HER TRANSFER FROM ROOM 308 AT 1345. SHE IS A&O X 1, THOUGHT SHE WAS AT A HOTEL FOR A BABY SHOWER. IS ABLE TO MOVE ALL EXTREMITIES, GOT UP TO BSC WITH 1 PERSON MAX ASSIST USING FWW FOR BALANCE, HAS ATAXIA. SCATTERED BRUISES ALL OVER IN VARIOUS STAGES OF RESOLUTION. DENIES PAIN. ON TELEMETRY, SR WITH PVC'S RATE 62. SHE PULLED OUT HER IV JUST BEFORE TRANSFER. ORIENTED TO NEW ROOM, CALL LIGHT, AND STAFF CARING FOR HER. CALL LIGHT AND BELONGINGS IN REACH, BED ALARM ON. PLACED ON CONTINUOUS OXIMETRY, 96% ON RA. CPAP AT BEDSIDE.
--- NOTE | 2020-12-25 19:28 | NUR ---
SHIFT SUMMARY: NO ACUTE EVENTS. NO EVENTS ON TELEMETRY OTHER THAN THE FACT THAT SHE REPEATEDLY REMOVES IT. A&O X 1, ATAXIA. SCATTERED BRUISING ON BILAT ARMS, BUTTOCKS, AND LEGS. TOLERATING PUREED DIET, FEEDS HERSELF. INCONTINENT AT TIMES. DENIES PAIN. BP THIS AFTERNOON 196/75; HYDRALAZINE 10 MG IV GIVEN IN NEWLY PLACED IV, WHICH PT PULLED OUT SHORTLY THEREAFTER.
--- NOTE | 2020-12-25 20:02 | NUR ---
RESTRAINS: PATIENT IS PULLING ALL LINES OFF, TELI, CONTINUOS PULSE OX AND HAS PULLED OUT IV. OM CALL UNIVERSITY MANAGER WAS NOTIFIED AND ORDER FOR WRIST RESTRAINTS IS OBATINED.
--- NOTE | 2020-12-25 23:11 | NUR ---
RESTRAINTS: A NEW IV WAS PLACED IN LEFT WRIST, BEST SITE AVAILABLE. PATIENT IS COOPREATIVE AT THIS POINT AND UNDER CAMERA OBSERVATION WITH SERVICE AIDE SITTING OUTSIDE OF THE ROOM. IV IS WRAPPED FORM PROTECTION. CONTINUOS PULSE OX AND CPAP ARE ON. BED ALARM IS ON FOR SAFETY. RESTARINTS WERE NOT APPLIED. WILL CONTINUE TO MONITOR.
--- NOTE | 2020-12-25 23:16 | NUR ---
CARDIAC: BP IS ELEVATED 186/86, 187/77, PATIENT IS ASYMPTOMATIC. PO LOPRESSOR AND PRN HYDRALAZINE 10MG WAS GIVEN WITH GOOD EFFECT. RECHECK WAS 145/60.
[2020-12-26 05:18] LABS: BASOPHILS ABSOLUTE AUTO 0.01 K/mm3 (0.00-0.23); BASOPHILS PERCENT AUTO 0 % (0-2); EOSINOPHILS ABSOLUTE AUTO 0.24 K/mm3 (0.00-0.68); EOSINOPHILS PERCENT AUTO 3 % (0-6); Hematocrit 41.6 % (33.0-51.0); Hemoglobin 13.2 g/dL (11.5-16.0); IMMATURE GRAN ABSOLUTE AUTO 0.04 K/mm3 (0.00-0.10); IMMATURE GRAN PERCENT AUTO 0 % (0-1); LYMPHOCYTES ABSOLUTE AUTO 1.89 K/mm3 (0.84-5.20); LYMPHOCYTES PERCENT AUTO 20 % (21-46); MONOCYTES ABSOLUTE AUTO 1.04 K/mm3 (0.16-1.47); MONOCYTES PERCENT AUTO 11 % (4-13); Mean Corpuscular HGB 30.8 pg (26.0-34.0); Mean Corpuscular HGB Conc 31.7 g/dL (31.5-36.5); Mean Corpuscular Volume 97 fL (80-100); Mean Platelet Volume 9.9 fL (9.1-12.4); NEUTROPHILS ABSOLUTE AUTO 6.06 K/mm3 (1.96-9.15); NEUTROPHILS PERCENT AUTO 65 % (41-73); Platelet Count 144 K/mm3 (150-400); RDW Coefficient Variation 13.1 % (11.7-14.2); RDW Standard Deviation 46.8 fL (35.1-46.3); Red Blood Cell Count 4.29 M/mm3 (3.80-5.20); White Blood Cell Count 9.28 K/mm3 (4.00-11.30)
[2020-12-26 05:30] LABS: Albumin, Blood 2.8 g/dL (3.4-5.0); Anion Gap 1 mmol/L (6-16); Blood Urea Nitrogen 28 mg/dL (8-24); Bun/Creatinine Ratio 24.3 (12.0-20.0); CO2, Blood 30 mmol/L (21-32); Calcium, Blood 8.7 mg/dL (8.5-10.1); Chloride, Blood 112 mmol/L (98-108); Creatinine, Blood 1.15 mg/dL (0.40-1.00); Glomerular Filtration Rate 49 (60-); Glucose, Blood 143 mg/dL (70-99); Phosphorus, Blood 3.3 mg/dL (2.5-4.9); Potassium, Blood 4.6 mmol/L (3.5-5.5); Sodium, Blood 143 mmol/L (136-145)
--- NOTE | 2020-12-26 17:35 | NUR ---
PT IS A/O X3, PT HAS BEEN PLEASANT AND COOPERATIVE THROUGOUT THE SHIFT. PT IS ON RA, AND DENIES ANY SOB. PT DENIES ANY CHEST PAIN AND IS ON TELE. PT IS ON A PUREED DIET. PT IS A 1 PERSON ASSIST TO THE BSC. PT HAS HAD ELEVATED BLOOD PRESSURES THROUGHOUT THE DAY. PT RECEIVED PRN HYDRALAZINE, AND THE PRESSURES HAVE SINCE COME DOWN. PT IS ACHS, AND HAS BEEN RECEIVING COVERAGE PER SLIDING SCALE. THE PLAN IS TO POSSIBLY D/C THE PT TO A SNF.
--- NOTE | 2020-12-27 03:53 | NUR ---
SUMMARY: PT IS A/OX3-4, PLEASANT AND COOPERATIVE W/CARE AND USES CALL LIGHT TO SPECIFY NEEDS. SHE HAD VERY MILD CONFUSION RE: EVENT BUT REMINDER WAS PROVIDED PRN. SHE REMAINS ON TELEMETRY IN NSR W/1ST DEGREE BLOCK AND PVC'S AT 60'S BPM. HTN PERSISTS W/HYDRALAZINE IV PRN RECIEVED X2 FOR IMPROVEMENT POST MEDICATION. PT TOLERATED CPAP AT HS W/SPO2 WNL ON CONT BIOX, LS CLEAR T/O. SHE SLEPT MAJORITY OF NOCTE AND REPOSITIONS SELF IN BED. VSS/AFEBRILE AND NO ACUTE CHANGES. PT DENIES PAIN AND ALL OTHER COMPLAINTS. PLAN IS FOR SNF UPON D/C LIKELY BACK TO [facility]. WCTM AND REPORT TO DAY RN.
[2020-12-27 06:13] LABS: Albumin, Blood 2.9 g/dL (3.4-5.0); Anion Gap 6 mmol/L (6-16); Blood Urea Nitrogen 26 mg/dL (8-24); Bun/Creatinine Ratio 22.4 (12.0-20.0); CO2, Blood 26 mmol/L (21-32); Calcium, Blood 9.2 mg/dL (8.5-10.1); Chloride, Blood 108 mmol/L (98-108); Creatinine, Blood 1.16 mg/dL (0.40-1.00); Glomerular Filtration Rate 48 (60-); Glucose, Blood 216 mg/dL (70-99); Phosphorus, Blood 3.8 mg/dL (2.5-4.9); Potassium, Blood 5.1 mmol/L (3.5-5.5); Sodium, Blood 140 mmol/L (136-145)
--- NOTE | 2020-12-27 16:17 | NUR ---
PT IS A/OX3, PLEASANT AND COOPERATIVE, THE PT IS UP WITH MINIMAL ASSIST, THE PT WORKED WITH THE PHYSICAL AND OCCUPATIONAL THERAPIST TODAY AND WAS UP AMBULATING IN THE [place] WITH THE FWW, THE PT WAS SEEN BY THE SPEECH THERAPIST, DIET WAS CHANGED FROM PUREE TO MECHANICAL SOFT DIET, THE PT DENIED ANY PAIN T/O THE DAY. DR. [employer]ONA IND[employer]RIAL GARAGE SERVICER CONSULTED WITH THE PT THIS AFTERNOON. CALL LIGHT IN REACH, WILL CONTINUE TO MONITOR AND ASSESS FOR CHANGES
--- NOTE | 2020-12-28 05:30 | NUR ---
SUMMARY: PT IS A/OX3, PLEASANT/COOPERATIVE W/CARE AND CALLS APPROPIATELY FOR ASSIST. SHE OCC AWAKENS FORGETFULL SO BED ALARM IS ON FOR FALL RISK. PT IS 1PA W/FWW TO TOILET AND BSC D/T UNSTEADY GAIT. BP HAS IMPROVED SOME SINCE ADDITION OF NORVASC ON DAY SHIFT. SHE'S DENIED PAIN AND ALL OTHER COMPLAINTS. CPAP TOLERATED AT HS W/2L O2 BLEED IN AND CONT BIOX INTACT. VSS/AFEBRILE AND NO ACUTE CHANGES. POSSIBLE D/C BACK TO [facility]. TM AND REPORT TO DAY RN.
--- NOTE | 2020-12-28 18:24 | NUR ---
END OF SHIFT SUMMARY: PATIENT CALM AND COOPERATIVE THROUGHOUT THE SHIFT. PATIENT UTILIZED THE CALL LIGHT APPROPRIATELY. PATIENT UP TO THE BATHROOM AND TO HER CHAIR MULTIPLE TIMES. PATIENT USED HER WALKER APPROPRIATELY AND WAS STEADY ON HER FEET. SHE REPORTED THAT SHE IS FEELING BETTER. PATIENT HAD AN ELEVATED BP THIS MORNING (SEE VITALS). MEDICATED WITH MORNING MEDICATIONS. PATIENT'S BP RESPONDED AND CAME DOWN. PATIENT DENIED CHEST PAIN, CHEST TIGHTNESS, AND/OR SHORTNESS OF BREATH AT REST OR WITH ACTIVITY.
--- NOTE | 2020-12-29 03:57 | NUR ---
SHIFT SUMMARY PATIENT HAD NO ACUTE CHANGES OBSERVED. AXOX 3 AND ONE ASSIST W/FWW TO BATHROOM. PIV REMAINS INTACT. CERTIFIED DRIVER EXAMINER REPORTS NSR W/PVC @60. CBG 212 AND ALTERNATING CPAP WITH 2L O2 BLEED AND NIGHT AND NC 2L O2 PRN. STATING 85-89% ON ROOM AIR AND 95%-99% ON 2L. VSS/AFEBRILE. DENIES PAIN, SOB, AND N/V. BED ALARM BEING FORGETFUL AT TIMES. CALL LIGHT IN REACH. BED IN LOWEST POSITION. WILL CONTINUE TO MONITOR UNTIL DAY SHIFT NURSE ASSUMES CARE.
--- NOTE | 2020-12-29 04:16 | NUR ---
TELEMETRY CHECK: TECH REPORTS LAURI 48 TO 57. PATIENT SLEEPING AT THIS TIME. WHEN PATIENT WOKE UP HR BACK INTO THE 60'S. STATING 98% ON 2L O2 NC. WCTM.
--- NOTE | 2020-12-29 17:04 | NUR ---
SHIFT SUMMARY PT AMBULATING WELL IN ROOM WITH SBA. NO ACUTE CHANGES IN ASSESSMENT AT THIS TIME. VS REVIEWED. PT INTERVIEWED BY [facility] AND PLANNED TO DC TOMORROW THERE. PT REQUIRING 1L O2 WHEN SLEEPING/NAPPING TO MAINTAIN O2 SATS ABOVE 90%. PT CURRENTLY SITTING UP IN CHAIR. CALL LIGHT IN REACH.
--- NOTE | 2020-12-29 18:28 | NUR ---
ANXIETY ABOUT DISCHARGING A FEW HOURS AFTER BEING INTERVIEWED BY [facility], THE PT BECAME ANXIOUS ABOUT LEAVING AND GOING TO A FACILITY. PT STATING "I HAVE DECIDED I AM GOING HOME INSTEAD" AND "I AM NOT OKAY WITH DECISIONS BEING MADE FOR ME". PT CALMED DOWN AND TALKED INTO STAYING THE NIGHT AND THEY ADDRESSING THE PROBLEMS IN THE MORNING. PT ANXIOUS ABOUT ALL THE WIRES AND TUBES ON HER. CONCERNS RELAYED TO DR. PARKER & TELE WAS DCED TO HELP EASE PTS ANXIETY.
--- NOTE | 2020-12-30 03:38 | NUR ---
SHIFT SUMMARY PATIENT HAD NO ACUTE CHANGES OBSERVED. AXOX 3 AND FORGETFUL AT TIMES. TAKES MEDICATION WHOLE WITH WATER. ONE ASSIST W/FWW TO BATHROOM. PIV REMAINS INTACT. CBG 133. PATIENT DESTATS INTO MID 80'S WHEN SLEEPING ON ROOM AIR. PLACED ON 2L O2 NC AND STATING 97%-99% AND HR 52-57 SLEEPING WITH OCCASIONAL MID 40'S. VSS/LOW GRADE TEMP 99.3, DENIES PAIN, SOB, AND N/V. CALL LIGHT IN REACH. BED IN LOWEST POSITION AND ALARM ACTIVATED. WILL CONTINUE TO MONITOR UNTIL DAY SHIFT NURSE ASSUMES CARE.
--- NOTE | 2020-12-30 09:00 | NUR ---
SPOKE TO DR GUSTAFSNO RE LOW H/R, 48-50. DR DUGAN, IS BASELINE. HOLD METOPROLOL FOR LOW H/R.
[2020-12-30] MEDS ORDERED: AMLO5 PO (09:29)
[2020-12-30] MEDS ORDERED: ASPI81CH PO (09:30)
[2020-12-30] MEDS ORDERED: INSULANPEN SC (09:30)
[2020-12-30] MEDS ORDERED: HUMULIN R100 UNIT/1 SC (09:30)
[2020-12-30] MEDS ORDERED: LEVE500 PO (09:31)
--- NOTE | 2020-12-30 11:04 | NUR ---
DISCHARGE REVIEWD WITH PT. PLACED IN PACKET FOR [facility]. IV PULLED INTACT. PT VERBALIZED UNDERSTANDING MEDS. NO TELE. PT WHEELED TO DOOR AT 1103 REPORT CALLED TO NURSE ON DUTY AT [facility]. NOT AVAIL. LMTC
== END 2020-12-30 11:00 | disposition home or self-care (01) | DRG 871 ==
LOC: ER 20:12 → ICUW 23:42 → MEDS 12-22 00:14 → ICUW 12-22 00:14 → ER 12-22 00:14 → ICUW 12-22 02:35 → MEDS 12-24 11:38 → ENPENDDIS 12-30 08:48 → MEDS 12-30 11:00
PROVIDERS: Emergency Medicine; Family Medicine; Internal Medicine Critical Care Medicine; ADMIT Internal Medicine
PROC: 009U3ZX Drainage of Spinal Canal, Percutaneous Approach, Diagnostic (ICD-10-PCS; principal; 2020-12-22)
DX: A41.51 Sepsis due to Escherichia coli [E. coli] (principal); R65.21 Severe sepsis with septic shock; G92 Toxic encephalopathy; I63.9 Cerebral infarction, unspecified; N39.0 Urinary tract infection, site not specified; N17.9 Acute kidney failure, unspecified; D69.6 Thrombocytopenia, unspecified; G47.33 Obstructive sleep apnea (adult) (pediatric); F32.9 Major depressive disorder, single episode, unspecified; I27.20 Pulmonary hypertension, unspecified; G40.909 Epilepsy, unspecified, not intractable, without status epilepticus; E87.6 Hypokalemia; N18.30 Chronic kidney disease, stage 3 unspecified; E11.22 Type 2 diabetes mellitus with diabetic chronic kidney disease; Z88.0 Allergy status to penicillin; Z79.4 Long term (current) use of insulin; Z79.02 Long term (current) use of antithrombotics/antiplatelets; Z79.899 Other long term (current) drug therapy
CPT/HCPCS: 0097U; 36415; 36600; 51702; 70450; 70553; 71045; 72125; 76770; 77003; 80053; 80069; 80202; 81001; 82330; 82435; 82803; 82945; 82947; 83605; 83735; 83880; 84132; 84157; 84295; 84484; 85025; 85610; 85730; 86403; 87040; 87070; 87077; 87086; 87102; 87186; 87205; 87483; 89051; 92526; 92610; 93005; 93010; 93306; 93880; 94660; 94762; 96365; 96375; 97110; 97112; 97116; 97162; 97166; 97530; 97535; 99285-25; A9270; A9579; C1751; G0480; J0360; J0696; J1100; J1650; J1815; J1953; J2060; J2250; J3010; J3370; J3475; J3480; J7030; J7050; J7060; J7120; P9046

== ENCOUNTER → 2020-12-21 | Outpatient (CLI) | payer MEDICARE ==
[~2020-12-21] MED LIST: AMLO5 PO; ASPI81CH PO; ATOR20 PO; CLOP75 PO; ESCI20 PO; FURO20 PO; HUMULIN R100 UNIT/1; HUMULIN R100 UNIT/1 DT; HUMULIN R100 UNIT/1 SC; INSULANPEN SC; LEVE500 PO; LISI20 PO; LORA1 PO; METO100ER PO; TRAZ50 PO
[2020-12-21 19:35] LABS: Source, Urine Catheter
[2020-12-21 19:39] LABS: BASOPHILS ABSOLUTE AUTO 0.05 K/mm3 (0.00-0.23); BASOPHILS PERCENT AUTO 0 % (0-2); EOSINOPHILS ABSOLUTE AUTO 0.04 K/mm3 (0.00-0.68); EOSINOPHILS PERCENT AUTO 0 % (0-6); Hematocrit 46.2 % (33.0-51.0); Hemoglobin 15.5 g/dL (11.5-16.0); IMMATURE GRAN ABSOLUTE AUTO 0.09 K/mm3 (0.00-0.10); IMMATURE GRAN PERCENT AUTO 1 % (0-1); LYMPHOCYTES ABSOLUTE AUTO 1.71 K/mm3 (0.84-5.20); LYMPHOCYTES PERCENT AUTO 12 % (21-46); MONOCYTES ABSOLUTE AUTO 0.68 K/mm3 (0.16-1.47); MONOCYTES PERCENT AUTO 5 % (4-13); Mean Corpuscular HGB 30.6 pg (26.0-34.0); Mean Corpuscular HGB Conc 33.5 g/dL (31.5-36.5); Mean Corpuscular Volume 91 fL (80-100); Mean Platelet Volume 9.3 fL (9.1-12.4); NEUTROPHILS ABSOLUTE AUTO 12.31 K/mm3 (1.96-9.15); NEUTROPHILS PERCENT AUTO 83 % (41-73); Platelet Count 241 K/mm3 (150-400); RDW Coefficient Variation 12.6 % (11.7-14.2); RDW Standard Deviation 42.5 fL (35.1-46.3); Red Blood Cell Count 5.06 M/mm3 (3.80-5.20); White Blood Cell Count 14.88 K/mm3 (4.00-11.30)
[2020-12-21 19:48] LABS: Bilirubin, Urine Neg (Neg); Blood, Urine Neg (Neg); Glucose Qualitative, Urine 3+ (Neg); Ketones, Urine Neg (Neg); Leukocyte Esterase, Urine Neg (Neg); Nitrite, Urine Neg (Neg); Protein, Urine 2+ (Neg); Specific Gravity, Urine 1.015 (1.003-1.022); Urobilinogen, Urine NORM (Normal)
[2020-12-21 19:54] LABS: Bun/Creatinine Ratio 25.7 (12.0-20.0); Calcium, Blood 9.6 mg/dL (8.5-10.1); Creatinine, Blood 1.01 mg/dL (0.40-1.00); Potassium, Blood 3.6 mmol/L (3.5-5.5)
[2020-12-21 19:58] LABS: Appearance, Urine Clear (Clear); Color, Urine Pale Yellow (P-Yellow)
[2020-12-21 20:00] LABS: Bacteria Few /hpf; Red Blood Cells, Urine Not Seen /hpf (0-2); Squamous Epithelial Cells Not Seen /hpf (Few); White Blood Cells, Urine 0-2 /hpf (0-5)
== END | disposition home or self-care (01) ==
LOC: EDSTATUS 11:04 → LAB RH 19:32
PROVIDERS: Internal Medicine
DX: N39.0 Urinary tract infection, site not specified (principal); R68.89 Other general symptoms and signs; R79.89 Other specified abnormal findings of blood chemistry
CPT/HCPCS: 80048; 81001; 85025; 87077; 87086; 87186

== ENCOUNTER → 2021-01-16 | Outpatient (CLI) | payer MEDICARE ==
[~2021-01-16] MED LIST changes: +AMLO5 PO; +ASPI81CH PO; +HUMULIN R100 UNIT/1; +HUMULIN R100 UNIT/1 DT; +HUMULIN R100 UNIT/1 SC; +INSULANPEN SC; +LEVE500 PO; +LORA1 PO
[2021-01-17 13:45] LABS: Appearance, Urine Clear (Clear); Bilirubin, Urine Neg (Neg); Blood, Urine Neg (Neg); Color, Urine Yellow (P-Yellow); Glucose Qualitative, Urine Neg (Neg); Ketones, Urine Neg (Neg); Leukocyte Esterase, Urine 2+ (Neg); Nitrite, Urine Neg (Neg); Protein, Urine Neg (Neg); Urobilinogen, Urine NORM (Normal)
[2021-01-17 14:11] LABS: Bacteria Mod /hpf; Red Blood Cells, Urine Not Seen /hpf (0-2); Squamous Epithelial Cells Mod /hpf (Few); White Blood Cells, Urine 0-2 /hpf (0-5)
== END | disposition home or self-care (01) ==
LOC: LAB 12:30 → LAB SHORT 12:30
PROVIDERS: Family Medicine
DX: N39.0 Urinary tract infection, site not specified (principal)
CPT/HCPCS: 81001; 87077; 87086; 87186

== ENCOUNTER → 2021-01-31 | Outpatient (CLI) | payer MEDICARE ==
[2021-02-01 13:39] LABS: Source, Urine Clean Catch
[2021-02-01 15:48] LABS: Appearance, Urine Clear (Clear); Bilirubin, Urine Neg (Neg); Blood, Urine Neg (Neg); Color, Urine Yellow (P-Yellow); Glucose Qualitative, Urine Neg (Neg); Ketones, Urine Neg (Neg); Leukocyte Esterase, Urine 1+ (Neg); Nitrite, Urine Neg (Neg); Protein, Urine 2+ (Neg); Urobilinogen, Urine NORM (Normal)
[2021-02-01 16:15] LABS: Bacteria Rare /hpf; Red Blood Cells, Urine 0-2 /hpf (0-2); Squamous Epithelial Cells Mod /hpf (Few); White Blood Cells, Urine 0-2 /hpf (0-5)
== END | disposition home or self-care (01) ==
LOC: LAB SHORT 19:00 → LAB 19:00
PROVIDERS: Family Medicine
DX: N39.0 Urinary tract infection, site not specified (principal)
CPT/HCPCS: 81001; 87077; 87086; 87186

== ENCOUNTER → 2021-03-15 | Outpatient (CLI) | payer MEDICARE, OTHER ==
[2021-03-15 12:23] LABS: Very Low Density Lipoprot Chol 15 mg/dL (6-32)
[2021-03-15 12:31] LABS: Cholesterol 139 mg/dL (50-200); HDL Cholesterol 46 mg/dL (>39); LDL/HDL RATIO 1.7; Low Density Lipoprotein Chol 78 mg/dL (0-110); Triglycerides 76 mg/dL (30-160)
== END | disposition home or self-care (01) ==
LOC: LAB SHORT 08:41 → LAB 08:41
PROVIDERS: Family Medicine
DX: E11.42 Type 2 diabetes mellitus with diabetic polyneuropathy (principal); E11.22 Type 2 diabetes mellitus with diabetic chronic kidney disease; N18.9 Chronic kidney disease, unspecified; Z79.4 Long term (current) use of insulin; Z79.899 Other long term (current) drug therapy
CPT/HCPCS: 80061; 82306; 84443

== ENCOUNTER → 2021-03-17 | Outpatient (CLI) | payer MEDICARE, OTHER ==
[2021-03-17 13:14] LABS: Source, Urine Clean Catch
[2021-03-17 13:36] LABS: Appearance, Urine Hazy (Clear); Bilirubin, Urine Neg (Neg); Blood, Urine 1+ (Neg); Color, Urine Yellow (P-Yellow); Glucose Qualitative, Urine Neg (Neg); Ketones, Urine Neg (Neg); Leukocyte Esterase, Urine 1+ (Neg); Nitrite, Urine Neg (Neg); Protein, Urine Neg (Neg); Specific Gravity, Urine 1.015 (1.003-1.022); Urobilinogen, Urine NORM (Normal)
[2021-03-17 13:53] LABS: Bacteria Many /hpf; Red Blood Cells, Urine 0-2 /hpf (0-2); Squamous Epithelial Cells Many /hpf (Few)
== END | disposition home or self-care (01) ==
LOC: LAB SHORT 10:50 → LAB 10:50
PROVIDERS: Family Medicine
DX: N39.0 Urinary tract infection, site not specified (principal)
CPT/HCPCS: 81001; 87086

== ENCOUNTER → 2021-05-17 | Outpatient (CLI) | payer MEDICARE, OTHER ==
[2021-05-17 10:50] LABS: Calcium, Blood 9.7 mg/dL (8.5-10.1); Creatinine, Blood 1.06 mg/dL (0.40-1.00); Potassium, Blood 3.8 mmol/L (3.5-5.5)
== END | disposition home or self-care (01) ==
LOC: LAB 08:15 → LAB SHORT 08:15
PROVIDERS: Family Medicine
DX: E11.42 Type 2 diabetes mellitus with diabetic polyneuropathy (principal); E11.22 Type 2 diabetes mellitus with diabetic chronic kidney disease; I12.9 Hypertensive chronic kidney disease with stage 1 through stage 4 chronic kidney disease, or unspecified chronic kidney disease; N18.9 Chronic kidney disease, unspecified; Z79.4 Long term (current) use of insulin
CPT/HCPCS: 80048; 83036

== ENCOUNTER 2021-07-03 18:26 | Inpatient (IN) | payer MEDICARE, OTHER ==
[~2021-07-03] VITALS: Ht 175.3 cm; Wt 87.1 kg
[~2021-07-03 18:26] MED LIST changes: +ATOR10 PO; -ATOR20 PO
[2021-07-03] MEDS ORDERED: ABILIFY MYCITE5 M2 PO (18:43)
[2021-07-03] MEDS ORDERED: PARO30 PO (18:45)
[2021-07-03] MEDS ORDERED: RISP2 PO (18:46)
[2021-07-03] MEDS ORDERED: MIRALAX17 GM PO (18:46)
[2021-07-03] MEDS ORDERED: Vitamin D1000 UNI1 PO (18:47)
[2021-07-03 19:38] LABS: BASOPHILS ABSOLUTE AUTO 0.03 K/mm3 (0.00-0.23); BASOPHILS PERCENT AUTO 0 % (0-2); EOSINOPHILS ABSOLUTE AUTO 0.17 K/mm3 (0.00-0.68); EOSINOPHILS PERCENT AUTO 2 % (0-6); Hematocrit 43.1 % (33.0-51.0); Hemoglobin 13.9 g/dL (11.5-16.0); IMMATURE GRAN ABSOLUTE AUTO 0.03 K/mm3 (0.00-0.10); IMMATURE GRAN PERCENT AUTO 0 % (0-1); LYMPHOCYTES ABSOLUTE AUTO 1.21 K/mm3 (0.84-5.20); LYMPHOCYTES PERCENT AUTO 14 % (21-46); MONOCYTES ABSOLUTE AUTO 0.74 K/mm3 (0.16-1.47); MONOCYTES PERCENT AUTO 9 % (4-13); Mean Corpuscular HGB 30.8 pg (26.0-34.0); Mean Corpuscular HGB Conc 32.3 g/dL (31.5-36.5); Mean Corpuscular Volume 95 fL (80-100); Mean Platelet Volume 9.1 fL (9.1-12.4); NEUTROPHILS ABSOLUTE AUTO 6.23 K/mm3 (1.96-9.15); NEUTROPHILS PERCENT AUTO 74 % (41-73); Platelet Count 203 K/mm3 (150-400); RDW Coefficient Variation 12.3 % (11.7-14.2); RDW Standard Deviation 43.2 fL (35.1-46.3); Red Blood Cell Count 4.52 M/mm3 (3.80-5.20); White Blood Cell Count 8.41 K/mm3 (4.00-11.30)
[2021-07-03 20:28] LABS: Bun/Creatinine Ratio 21.2 (12.0-20.0); Creatinine, Blood 0.99 mg/dL (0.40-1.00); Potassium, Blood 4.4 mmol/L (3.5-5.5)
[2021-07-03 23:07] LABS: Albumin, Blood 2.6 g/dL (3.4-5.0); Albumin/Globulin Ratio 0.6 (0.8-1.8); Bilirubin, Direct 0.1 mg/dL (0.0-0.3); Bilirubin, Indirect 0.2 mg/dL (0.1-0.7); Bilirubin, Total 0.3 mg/dL (0.1-1.0); Total Protein, Blood 6.6 g/dL (6.4-8.2)
[2021-07-04 00:44] LABS: PCO2 Arterial 86.5 mmHg (35-45); PO2 Arterial 156 mmHg (80-100); pH Blood Arterial 7.25 (7.35-7.45)
--- NOTE | 2021-07-04 06:00 | NUR ---
Arrived from ER, yelling trying to pull off BIPAP. IV infiltrated. transferred over to ICU bed. pulling at restraints, cursing at nurses. IV restarted bilat. keppra restarted and precedex restarted. blood pressure elevated. prn meds given. admission assessment completed.
[2021-07-04 07:55] LABS: BASOPHILS ABSOLUTE AUTO 0.01 K/mm3 (0.00-0.23); BASOPHILS PERCENT AUTO 0 % (0-2); EOSINOPHILS PERCENT AUTO 0 % (0-6); Hematocrit 42.6 % (33.0-51.0); Hemoglobin 14.3 g/dL (11.5-16.0); IMMATURE GRAN ABSOLUTE AUTO 0.05 K/mm3 (0.00-0.10); IMMATURE GRAN PERCENT AUTO 1 % (0-1); LYMPHOCYTES ABSOLUTE AUTO 0.83 K/mm3 (0.84-5.20); LYMPHOCYTES PERCENT AUTO 10 % (21-46); MONOCYTES ABSOLUTE AUTO 0.26 K/mm3 (0.16-1.47); MONOCYTES PERCENT AUTO 3 % (4-13); Mean Corpuscular HGB 30.8 pg (26.0-34.0); Mean Corpuscular HGB Conc 33.6 g/dL (31.5-36.5); Mean Corpuscular Volume 92 fL (80-100); Mean Platelet Volume 9.2 fL (9.1-12.4); NEUTROPHILS ABSOLUTE AUTO 7.62 K/mm3 (1.96-9.15); NEUTROPHILS PERCENT AUTO 87 % (41-73); Platelet Count 206 K/mm3 (150-400); RDW Standard Deviation 40.6 fL (35.1-46.3); Red Blood Cell Count 4.64 M/mm3 (3.80-5.20); White Blood Cell Count 8.77 K/mm3 (4.00-11.30)
[2021-07-04 08:31] LABS: Albumin, Blood 2.7 g/dL (3.4-5.0); Albumin/Globulin Ratio 0.7 (0.8-1.8); Bilirubin, Total 0.6 mg/dL (0.1-1.0); Bun/Creatinine Ratio 26.6 (12.0-20.0); Calcium, Blood 9.4 mg/dL (8.5-10.1); Creatinine, Blood 0.98 mg/dL (0.40-1.00); Globulin, Blood 3.8 g/dL (2.2-4.0); Potassium, Blood 4.1 mmol/L (3.5-5.5); Total Protein, Blood 6.5 g/dL (6.4-8.2)
--- NOTE | 2021-07-04 09:01 | NUR ---
ASSUMED CARE OF PATIENT: ON BIPAP, SATS WNL, HTN 190S POST 10MG HYDRALAZINE, BP COMING DOWN NOW 150S, CONFUSED AOX1, DEX 0.4 DOWN TO 0.2, RESTRAINTS PRESENT FOR AIRWAY/BIPAP PROTECTION.
[2021-07-04 10:04] LABS: pH Blood Arterial 7.39 (7.35-7.45)
[2021-07-04 10:05] LABS: PCO2 Arterial 55.1 mmHg (35-45)
[2021-07-04 14:17] LABS: Source, Urine Catheter
[2021-07-04 14:47] LABS: Appearance, Urine Clear (Clear); Bilirubin, Urine Neg (Neg); Blood, Urine 1+ (Neg); Color, Urine Yellow (P-Yellow); Glucose Qualitative, Urine Neg (Neg); Ketones, Urine Neg (Neg); Leukocyte Esterase, Urine Neg (Neg); Nitrite, Urine Neg (Neg); Protein, Urine 1+ (Neg); Urobilinogen, Urine NORM (Normal); pH, Urine 6.5 (5.0-8.0)
[2021-07-04 14:49] LABS: U Amphetamine Screen Not Detected; U Barbituate Screen Not Detected; U Benzodiazapine Screen DETECTED; U Buprenorphine Screen Not Detected; U Cannabinoids Screen Not Detected; U Cocaine Screen Not Detected; U Methadone Screen Not Detected; U Methamphetamine Screen Not Detected; U Opiates Screen Not Detected; U Oxycodone Screen Not Detected; U Phencyclidine Screen Not Detected; U Propoxyphene Screen Not Detected
[2021-07-04 15:12] LABS: White Blood Cells, Urine 0-2 /hpf (0-5)
[2021-07-04 15:13] LABS: Amorphous Light (0-Heavy); Bacteria Rare /hpf; Squamous Epithelial Cells Few /hpf (Few)
--- NOTE | 2021-07-04 18:24 | NUR ---
VARIABLE ALERTNESS THIS SHIFT, AT BEST AOX1, FOLLOWS COMMANDS, SOME SLURRING TO SPEECH, CALM AND APPROPRIATE, OTHER TIMES MORE SOMNOLENT ONLY ROUSABLE BY PAIN STIMULI, PUPILS 3MM BRISK, PRECEDEX DC'D IN MORNING, NSR VS SB, LOW 38 HR MD AWARE , PRN ATROPINE ORDER PLACED, BP HTN IN AM, POST HYDRALAZINE WNL <160 SBP, +2 PULSES, BIPAP MOST OF SHIFT, CONSULT WITH [facility] MOST LIKELY SOME UNDIAGNOSED SLEEP APNEA, SATS >92, TRIALED NC 2-4L SATS WNL, UNABLE TO DO SWALLOW EVAL D/T VARIABLE ALERTNESS/ASPIRATION ADMIT DIAGNOSIS, LOPEZ PLACED FOR I/O W/ INCONTINENCE.
--- NOTE | 2021-07-04 20:00 | NUR ---
Assumed care after report recv'd. On bipap. Pleasant and able to answer most orientation questions. Heart rate bradycardic. Bipap settings 18/10 35%. tolerating well. Request drink. Attempt made to do bedside swallow study. Coughs with swallow of water. Advised will need to keep NPO until swallow eval by speech complete. Oral care done and mouth moisterizer used.
--- NOTE | 2021-07-04 23:30 | NUR ---
Increased confusion slowly as shift progresses. Pulling off monitor wires and bipap. unable to redirect. Haldol given.
--- NOTE | 2021-07-05 00:45 | NUR ---
Continued attempts to climb out of bed, pulling off monitor wires and bipap. Increased confusion, oriented only to self. Hospitalist called order recv'd for ativan.
[2021-07-05 03:34] LABS: BASOPHILS ABSOLUTE AUTO 0.01 K/mm3 (0.00-0.23); BASOPHILS PERCENT AUTO 0 % (0-2); EOSINOPHILS ABSOLUTE AUTO 0.02 K/mm3 (0.00-0.68); EOSINOPHILS PERCENT AUTO 0 % (0-6); Hematocrit 37.8 % (33.0-51.0); Hemoglobin 12.2 g/dL (11.5-16.0); IMMATURE GRAN ABSOLUTE AUTO 0.03 K/mm3 (0.00-0.10); IMMATURE GRAN PERCENT AUTO 0 % (0-1); LYMPHOCYTES ABSOLUTE AUTO 1.91 K/mm3 (0.84-5.20); LYMPHOCYTES PERCENT AUTO 17 % (21-46); MONOCYTES ABSOLUTE AUTO 1.03 K/mm3 (0.16-1.47); MONOCYTES PERCENT AUTO 9 % (4-13); Mean Corpuscular HGB 30.7 pg (26.0-34.0); Mean Corpuscular HGB Conc 32.3 g/dL (31.5-36.5); Mean Corpuscular Volume 95 fL (80-100); Mean Platelet Volume 9.2 fL (9.1-12.4); NEUTROPHILS ABSOLUTE AUTO 8.25 K/mm3 (1.96-9.15); NEUTROPHILS PERCENT AUTO 73 % (41-73); Platelet Count 213 K/mm3 (150-400); RDW Coefficient Variation 12.6 % (11.7-14.2); Red Blood Cell Count 3.98 M/mm3 (3.80-5.20); White Blood Cell Count 11.25 K/mm3 (4.00-11.30)
[2021-07-05 04:22] LABS: PCO2 Arterial 67.7 mmHg (35-45); PO2 Arterial 104 mmHg (80-100)
[2021-07-05 04:32] LABS: Albumin, Blood 2.3 g/dL (3.4-5.0); Albumin/Globulin Ratio 0.8 (0.8-1.8); Bilirubin, Total 0.2 mg/dL (0.1-1.0); Bun/Creatinine Ratio 24.8 (12.0-20.0); C-REACTIVE PROTEIN, EXT RANGE 1.01 mg/dL (0.000-0.300); Calcium, Blood 8.4 mg/dL (8.5-10.1); Creatinine, Blood 1.01 mg/dL (0.40-1.00); Magnesium, Blood 1.6 mg/dL (1.6-2.4); Phosphorus, Blood 2.8 mg/dL (2.5-4.9); Potassium, Blood 3.9 mmol/L (3.5-5.5); Thyroid Stimulating Hormone 2.38 uIU/mL (0.360-4.800); Total Protein, Blood 5.3 g/dL (6.4-8.2); Troponin I 0.021 ng/mL (0.000-0.040)
--- NOTE | 2021-07-05 04:41 | NUR ---
Resting at this time. Occasional awaking and will pull at lines and bipap when awake, then will calm and go back to sleep.
--- NOTE | 2021-07-05 06:03 | NUR ---
Alert and oriented at beginning of shift, became more confused through night pulling of lines and bipap. Would not redirect. Unresponsive to haldol. Responded to Ativan, calming and going to sleep. Would wake and start pulling off monitor lines and bipap. Does have hx of dementia and schizoaffective disorders. Bradycardic through out night with rates in 40's most of night. Would elevate into the 60's with agitation then would drop back to 40's once calmed. periods of apnea with oxygen sat drops during sleep. Bipap titrated by RT. ABG's improving
--- NOTE | 2021-07-05 09:45 | NUR ---
CARE ASSUMPTION PT DIFFICULT TO WAKE, GROANING IN RESPONSE TO VERBAL STIMULI W/ TOUCH. PT NOT OPENING EYES WHEN ASKED, BUT SQUEEZES HANDS WHEN ASKED. PT VSS. SPO2 > 92% ON BIPAP: 22/03, FIO2 32%. HEART MONITOR SHOWING SB W/ PVC's, HR 40's-50's. PT NPO, AWAITING ST EVAL. CBG STABLE. NS GTT INFUSING PER ORDERS. LOPEZ CATH PATENT & DRAINING CLEAR YELLOW URINE. BED ALARM ON.
--- NOTE | 2021-07-05 11:22 | NUR ---
RESTRAINTS PT FULLY AWAKE, DEROBING & PULLING AT BIPAP MASK, CORDS & LINES. PRN IV ATIVAN GIVEN W/ NO IMPROVEMENT. PT THEN PULLED PIV. CALL TO MD LOWE W/ ORDER FOR BILAT SWR. PT ORIENTED TO SELF, DENIES KNOWING WHERE SHE IS OR WHAT HAPPENED. PT REPORTING DATE TO BE 1968. PT UPDATED ON LOCATION, EVENT, DATE/TIME. PT NOW PULLING AT RESTRAINTS, REQESTING "GET ME OUT OF HERE. GET THIS STUFF OFF OF ME." PT EDUCATED ON CARE & PURPOSE OF MEDICAL EPQUIPMENT.
--- NOTE | 2021-07-05 11:49 | NUR ---
ST EVAL PT AWAKE, ABLE TO BE SEEN & EVALUATED BY ST. PT TRANSITIONED FROM BIPAP TO 3L NC BY RT. PT SITTING UPRIGHT IN BED, ABLE TO FOLLOW INSTRUCTIONS. PT CLEARED BY ST FOR MECHANICAL SOFT DIET & THIN LIQUIDS. AFTER ST EVALUATION PT THEN DROWSY, BACK TO SLEEPING W/ DIFFICULTY STAYING AWAKE.
--- NOTE | 2021-07-05 12:12 | NUR ---
IMAGING PT GONE TO IMAGING BY BED W/ O2 FOR MRI OF HEAD AT THIS TIME. JANE LOPEZ DC'jen FOR MRI.
--- NOTE | 2021-07-05 17:52 | NUR ---
SHIFT SUMMARY PT PCU STATUS. SLEEPING MAJORITY OF SHIFT, DIFFICULT TO WAKEN, & ONLY OPENS EYES FOR SHORT TIME. PT VSS. SPO2 > 92% ON 1L NC, TITRATED DOWN FROM 3L NC TODAY. MONITOR SB, HR 40's-50's THIS AM, NOW SR, HR 70's-90's. BP STABLE. MURMUR NOTED, W/ ORDER FOR ECHO TO BE DONE. TEMP LOPEZ CATH DC'd TODAY FOR MRI, ONLY 175 MLS OUTPUT IN LOPEZ BAG. PT W/ NO POST LOPEZ VOID. BLADDER SCAN DONE THIS EVENING SHOWING APPROX 160 MLS URINE. ATTENDS C/D. PT UNABLE TO STAY AWAKE FOR DINNER THIS EVENING. PO INTAKE TO BE ATTEMPTED WHEN PT MORE ALERT. BILAT SWR IN PLACE. 1/2 NS GTT INFUSING PER ORDERS.
--- NOTE | 2021-07-05 20:56 | NUR ---
Spoke with Dr. Serrano -- sterling to hold lucia 15units for FSBS 85
--- NOTE | 2021-07-05 21:03 | NUR ---
PRN hydralzine given for SBP 190s
--- NOTE | 2021-07-06 00:18 | NUR ---
Vo 14G catheter inserted for protocol of retention - bladder scan 500ml urine sample sent to labratory difficult insertion - 3 attempts by 2 RNs
[2021-07-06 00:24] LABS: Source, Urine Catheter
[2021-07-06 00:26] LABS: Bilirubin, Urine Neg (Neg); Blood, Urine 1+ (Neg); Glucose Qualitative, Urine Neg (Neg); Ketones, Urine Neg (Neg); Leukocyte Esterase, Urine Neg (Neg); Nitrite, Urine Neg (Neg); Protein, Urine Neg (Neg); Urobilinogen, Urine NORM (Normal)
[2021-07-06 01:06] LABS: Appearance, Urine Clear (Clear); Color, Urine Yellow (P-Yellow)
[2021-07-06 01:08] LABS: Bacteria Few /hpf; Squamous Epithelial Cells Not Seen /hpf (Few)
--- NOTE | 2021-07-06 02:14 | NUR ---
PRN EKG taken for frequent PVCs, rare PACs, increase HR from SB to SR 90s/[id number]. EKG reading: "Sinus rhythm with marked sinus arrhythmia with 1st degree AV block with occasional premature ventricular complexes Left anterior fascicular block Cannot rule out inferior infarct, age undetermined Anterolateral infarct, age undetermined Abnormal ECG"
[2021-07-06 03:48] LABS: BASOPHILS ABSOLUTE AUTO 0.09 K/mm3 (0.00-0.23); BASOPHILS PERCENT AUTO 1 % (0-2); EOSINOPHILS PERCENT AUTO 1 % (0-6); Hematocrit 47.7 % (33.0-51.0); Hemoglobin 14.7 g/dL (11.5-16.0); IMMATURE GRAN ABSOLUTE AUTO 0.31 K/mm3 (0.00-0.10); IMMATURE GRAN PERCENT AUTO 3 % (0-1); LYMPHOCYTES ABSOLUTE AUTO 2.27 K/mm3 (0.84-5.20); LYMPHOCYTES PERCENT AUTO 21 % (21-46); MONOCYTES ABSOLUTE AUTO 1.04 K/mm3 (0.16-1.47); MONOCYTES PERCENT AUTO 10 % (4-13); Mean Corpuscular HGB 30.4 pg (26.0-34.0); Mean Corpuscular HGB Conc 30.8 g/dL (31.5-36.5); Mean Corpuscular Volume 99 fL (80-100); Mean Platelet Volume 8.7 fL (9.1-12.4); NEUTROPHILS ABSOLUTE AUTO 7.14 K/mm3 (1.96-9.15); NEUTROPHILS PERCENT AUTO 65 % (41-73); Platelet Count 206 K/mm3 (150-400); RDW Coefficient Variation 12.5 % (11.7-14.2); RDW Standard Deviation 45.6 fL (35.1-46.3); Red Blood Cell Count 4.84 M/mm3 (3.80-5.20); White Blood Cell Count 10.95 K/mm3 (4.00-11.30)
[2021-07-06 04:38] LABS: Alanine Aminotransfer (ALT/SGP 34 U/L (12-78); Albumin, Blood 2.5 g/dL (3.4-5.0); Albumin/Globulin Ratio 0.7 (0.8-1.8); Alk Phos 150 U/L (50-136); Anion Gap 6 mmol/L (6-16); Aspartate Aminotrans (AST/SGOT 29 U/L (12-37); Bilirubin, Total 0.4 mg/dL (0.1-1.0); Blood Urea Nitrogen 18 mg/dL (8-24); Bun/Creatinine Ratio 20.6 (12.0-20.0); CO2, Blood 28 mmol/L (21-32); Calcium, Blood 8.6 mg/dL (8.5-10.1); Chloride, Blood 112 mmol/L (98-108); Creatinine, Blood 0.88 mg/dL (0.40-1.00); Globulin, Blood 3.6 g/dL (2.2-4.0); Glomerular Filtration Rate >60 (60-); Glucose, Blood 126 mg/dL (70-99); Magnesium, Blood 1.8 mg/dL (1.6-2.4); Phosphorus, Blood 3.3 mg/dL (2.5-4.9); Potassium, Blood 4.5 mmol/L (3.5-5.5); Sodium, Blood 146 mmol/L (136-145); Total Protein, Blood 6.1 g/dL (6.4-8.2)
--- NOTE | 2021-07-06 06:42 | NUR ---
End of shift summary: Echo ordered for heart murmur. Patient only oriented to name overnight, but able to follow commands. Mostly drowsy-somnolent a large portion of shift, but was able to wake up and attempt to communicate this morning. Patient's speech is mumbled and intermittently coherent. No dentures seen at bedside. Patient did tolerate PO pills and HS snack of applesauce and chocolate pudding. Last night's lantus held for FSBS 85. Follows simple commands safely. No attempts at combativeness. Able to calm with verbal communications. Restraints remain on. Reevaluation required for need. 1/2NS at 50ml/hr x1 bag still running. .9NS KVO running as well for keppra and antibiotics. No BM overnight. Vo inserted per retention protocol. Patient has white vaginal discharged. UA sent per protocol. PRN EKG performed for change in heart rhythm. SB to SR/ST overnight with PVCs and PACs. Morning electrolytes unremarkable. Patient refused bath this morning. Oral care performed.
[2021-07-06] MEDS ORDERED: Prinivil10 MG PO (08:54)
[2021-07-06] MEDS ORDERED: TRAZ50 PO (08:58)
[2021-07-06] MEDS ORDERED: ACET325 PO (08:59)
[2021-07-06] MEDS ORDERED: DULCOLAX400 MG/5 M PO (09:01)
[2021-07-06] MEDS ORDERED: ONDA4ODT MM (09:01)
[2021-07-06] MEDS ORDERED: Seroquel Xr50 MG PO (09:01)
[2021-07-06] MEDS ORDERED: LOPERAMIDE2 M8 PO (09:02)
[2021-07-06] MEDS ORDERED: BISA10S PR (09:02)
--- NOTE | 2021-07-06 12:44 | NUR ---
PT RESTING IN BED. WOKE UP THIS AM ORIENTED TO SELF AND SURROUNDINGS. HAS SOME CONFUSED CONVERSATION AT TIMES BUT CALM AND COOPERATIVE. ATE LUNCH AND TAKES PILLS WITHOUT ISSUE. HAS BEEN OUT OF RESTRAINTS. STOOD SEVERAL TIMES WITH PT WITH FWW TODAY. WAS CHANGED TO MEDICAL STATUS TODAY. NO SIGN OF DISTRESS.
--- NOTE | 2021-07-06 13:36 | NUR ---
ASSUMED CARE OF PT, REPORT RCV'D FROM CAMACHO RIOS. PT ALERT TO SELF/, BELIEVES SHE IS "IN THE STORE" AND THE DATE IS "NOV, 1955". PT PLEASANT, COOPERATIVE AND REDIRECTABLE. PULLS ON LINES/LOPEZ BUT EASILY REDIRECTABLE. VSS AT THIS TIME.
--- NOTE | 2021-07-06 18:25 | NUR ---
SHIFT SUMMARY PT REMAINS UNRESTRAINED, ORIENTED ONLY TO SELF. PT CONTINUES TO REMOVE HER CLOTHING AND EXPERIENCE AUDITORY/VISUAL HALLUCINATIONS. LOPEZ CATHETER REMOVED D/T PT PULLING ON LINES/CORDS. ATTENDS IN PLACE. PT ABLE TO FEED HERSELF INDEPENDENTLY WITH CLOSE SUPERVISION, PT SHOVES LARGE PIECES OF FOOD IN HER MOUTH AND ATTEMPTS TO SWALLOW THEM. VSS T/O SHIFT. BED ALARM ON, BED IN LOW/LOCKED POSITION, DOOR/CURTAIN OPEN. WILL REPORT TO ONCOMING NURSE.
--- NOTE | 2021-07-06 19:00 | NUR ---
Assumed care from Jonas SAUER
--- NOTE | 2021-07-06 20:30 | NUR ---
Bed bath performed, patient cooperative with turning to R, but not L side (hx of CVA per previous notes) Patient fell asleep after bath and oral care. Patient hallucinating/calling for family members during bath time, and patient beleives she is only 21 years old. Brief changed also performed with HS bath, large urine occurence. No BM. Patient ate half midnight snack = pudding cup with sugar, with HS pills. 2LNC reapplied as patient saturation check was only 86% on RA. Increased to 92% with 2L NC.
--- NOTE | 2021-07-06 22:00 | NUR ---
Dr. Serrano called Patient hallucinating and asking for "Vincent" to bring her tylenol. Patient not answering pain scale questions but asking for pain meds. Okay per Dr. Serrano to add PRN tylenol order.
--- NOTE | 2021-07-06 23:47 | NUR ---
failed IV attempt x2
--- NOTE | 2021-07-07 00:32 | NUR ---
Dr. Harris notified of no PIV access Okay to maintain no IV access change Kehirora to PO d/c Jad and change to Terry BID
[2021-07-07 03:55] LABS: BASOPHILS ABSOLUTE AUTO 0.04 K/mm3 (0.00-0.23); BASOPHILS PERCENT AUTO 0 % (0-2); EOSINOPHILS ABSOLUTE AUTO 0.16 K/mm3 (0.00-0.68); EOSINOPHILS PERCENT AUTO 1 % (0-6); Hematocrit 44.3 % (33.0-51.0); Hemoglobin 14.5 g/dL (11.5-16.0); IMMATURE GRAN ABSOLUTE AUTO 0.12 K/mm3 (0.00-0.10); IMMATURE GRAN PERCENT AUTO 1 % (0-1); LYMPHOCYTES ABSOLUTE AUTO 1.68 K/mm3 (0.84-5.20); LYMPHOCYTES PERCENT AUTO 14 % (21-46); MONOCYTES ABSOLUTE AUTO 1.17 K/mm3 (0.16-1.47); MONOCYTES PERCENT AUTO 10 % (4-13); Mean Corpuscular HGB 30.3 pg (26.0-34.0); Mean Corpuscular HGB Conc 32.7 g/dL (31.5-36.5); Mean Platelet Volume 8.7 fL (9.1-12.4); NEUTROPHILS ABSOLUTE AUTO 8.46 K/mm3 (1.96-9.15); NEUTROPHILS PERCENT AUTO 73 % (41-73); Platelet Count 218 K/mm3 (150-400); RDW Standard Deviation 40.9 fL (35.1-46.3); Red Blood Cell Count 4.79 M/mm3 (3.80-5.20); White Blood Cell Count 11.63 K/mm3 (4.00-11.30)
[2021-07-07 03:58] LABS: Mean Corpuscular Volume 93 fL (80-100)
[2021-07-07 04:18] LABS: Anion Gap 4 mmol/L (6-16); Blood Urea Nitrogen 16 mg/dL (8-24); Bun/Creatinine Ratio 19.1 (12.0-20.0); CO2, Blood 35 mmol/L (21-32); Calcium, Blood 9.4 mg/dL (8.5-10.1); Chloride, Blood 101 mmol/L (98-108); Creatinine, Blood 0.84 mg/dL (0.40-1.00); Glomerular Filtration Rate >60 (60-); Glucose, Blood 252 mg/dL (70-99); Magnesium, Blood 1.6 mg/dL (1.6-2.4); Potassium, Blood 3.6 mmol/L (3.5-5.5); Sodium, Blood 140 mmol/L (136-145)
--- NOTE | 2021-07-07 07:06 | NUR ---
End of shift summary: (isolation for lice) patient placed in isolation precautions for lice lice treatment given patient intermittently agitated overnight, PRN haldol and PRN ativan given patient currently has no IV access - keppra and rocephen orders changed PRN hydralazine given for SBP > 190, otherwise VSS No BM overnight Mulitple very large unmeasurable urine occurences overnight
--- NOTE | 2021-07-07 17:52 | NUR ---
PT ORIENTED TO SELF TODAY. YELLING "HELLO" AND "ULISES" WHILE AWAKE. SHE IS SOMEWHAT ABLE TO EXPRESS HER NEEDS WHEN ASKED. SHE WAS REORIENTED AND GIVEN ACTIVITIES FOR DISTRACTION. HYPERTENSIVE THIS MORNING, IMPROVED WITH PO METOPROLOL. 2L NC SHE HAS PERIODS OF DESATURATION WHILE SLEEPING. 1 BM TODAY. MULTIPLE EPISODES OF INCONTINENCE. I DISCUSSED MAGNESIUM, PHOSPHORUS, AND BLOOD GLUCOSE CONTROL WITH DR. LOWE, AND UPDATED THE RN FROM [facility] VIA PHONE. NOW SHE IS RESTING COMFORTABLY. REFUSED DINNER.
--- NOTE | 2021-07-07 20:00 | NUR ---
ASSUMED CARE OF PT AT 1915. REPORT RECEIVED. PT PRESENTS IN BED SLEEPING. DOES MOVE HERSELF ABOUT IN BED INDEPENDENTLY. PLEASANT AND COOPERATIVE WITH CARE AND ASSESSMENT. WILL DO FREQUENT CHECKS ON PT TO MONITOR HER SAFETY, AND MENTAL STATUS. WILL REVIEW HCART AND PLAN OF CARE FOR THIS PT.
--- NOTE | 2021-07-07 23:38 | NUR ---
PT WAS ABLE TO TAKE HER PO MEDICATIONS ONE AT A TIME WITHOUT COUGH. DID TAKE A FULL GLUCERNA SUPPLEMENT. PT COOPERATIVE WITH CARE. HAS NOT HAD ANY EPISODES OF YELLING OUT. WILL CONTINUE TO MONITOR PT FOR SAFETY.
--- NOTE | 2021-07-08 01:13 | NUR ---
PT AWAKENS AND STATES SHE HAS TO "GO THE BATHROOM" PT'S ATTENDS CHANGED, AND SHE HAD BEEN INCONTINENT TO URINE. PT PLACED ON BEDPAN AND WAS UNFORTUNATELY UNABLE TO UNDERSTAND THAT SHE COULD ATTEMPT VOID. PT THE ASSISTED OUT OF BED TO BEDSIDE COMMODE. AGAIN BEING UNABLE TO UNDERSTAND THAT SHE COULD USE COMMODE. SHE REPEATED REQUEST TO "GO TO THE BATHROOM." BLADDER SCAN DONE WHICH REVEALS 17 ML URINE RESIDUAL. PT BACK TO BED. PT REMAINS CONFUSED. DOES NOT FOLLOW DIRECTIONS, AND ATTEMPTS TO TAKE HER HOSPITAL GOWN OFF. FREQUENT REMINDERS TO LEAVE GOWN ON. WILL MONITOR PT CLOSELY FOR SAFETY.
--- NOTE | 2021-07-08 05:33 | NUR ---
PT HAS REMAINED CONFUSED THROUGHOUT THE NIGHT. IS ABLE TO FOLLOW SIMPLE CONVERSATIONS. PT TENDS TO REMOVE HER GOWN, AND THEN COVER HERSELF UP WITH THE GOWN. PT HAS REMAINED PLEASANTLY CONFUSED. WILL REVIEW CHART AND PLAN OF CARE FOR THIS PT.
[2021-07-08 05:56] LABS: BASOPHILS ABSOLUTE AUTO 0.04 K/mm3 (0.00-0.23); BASOPHILS PERCENT AUTO 0 % (0-2); EOSINOPHILS ABSOLUTE AUTO 0.21 K/mm3 (0.00-0.68); EOSINOPHILS PERCENT AUTO 2 % (0-6); Hematocrit 43.9 % (33.0-51.0); Hemoglobin 14.3 g/dL (11.5-16.0); IMMATURE GRAN ABSOLUTE AUTO 0.08 K/mm3 (0.00-0.10); IMMATURE GRAN PERCENT AUTO 1 % (0-1); LYMPHOCYTES ABSOLUTE AUTO 1.87 K/mm3 (0.84-5.20); LYMPHOCYTES PERCENT AUTO 16 % (21-46); MONOCYTES ABSOLUTE AUTO 1.25 K/mm3 (0.16-1.47); MONOCYTES PERCENT AUTO 10 % (4-13); Mean Corpuscular HGB 30.3 pg (26.0-34.0); Mean Corpuscular HGB Conc 32.6 g/dL (31.5-36.5); Mean Corpuscular Volume 93 fL (80-100); NEUTROPHILS ABSOLUTE AUTO 8.62 K/mm3 (1.96-9.15); NEUTROPHILS PERCENT AUTO 71 % (41-73); RDW Coefficient Variation 12.1 % (11.7-14.2); RDW Standard Deviation 41.8 fL (35.1-46.3); Red Blood Cell Count 4.72 M/mm3 (3.80-5.20); White Blood Cell Count 12.07 K/mm3 (4.00-11.30)
[2021-07-08 06:22] LABS: Mean Platelet Volume 9.7 fL (9.1-12.4); Platelet Count 166 K/mm3 (150-400)
[2021-07-08 06:30] LABS: Albumin, Blood 2.4 g/dL (3.4-5.0); Anion Gap 4 mmol/L (6-16); Blood Urea Nitrogen 19 mg/dL (8-24); Bun/Creatinine Ratio 19.5 (12.0-20.0); CO2, Blood 36 mmol/L (21-32); Calcium, Blood 9.3 mg/dL (8.5-10.1); Chloride, Blood 100 mmol/L (98-108); Creatinine, Blood 0.98 mg/dL (0.40-1.00); Glomerular Filtration Rate 56 (60-); Glucose, Blood 195 mg/dL (70-99); Magnesium, Blood 1.9 mg/dL (1.6-2.4); Phosphorus, Blood 3.3 mg/dL (2.5-4.9); Potassium, Blood 4.1 mmol/L (3.5-5.5); Sodium, Blood 140 mmol/L (136-145)
--- NOTE | 2021-07-08 12:12 | NUR ---
PT VERY DROWSY THIS MORNING. SHE WAKES EASILY, FOLLOWS COMMANDS AND ANSWERS QUESTIONS, BUT FALLS ASLEEP QUICKLY AFTER. I WAS UNABLE TO ADMINISTER MEDS THIS MORNING DUE TO HER DROWSINESS. DR. LOWE NOTIFIED. PER DR. LOWE REQUEST, I WILL TRY AGAIN TO ADMIN AND IF NOT POSSIBLE WITHIN A COUPLE HOURS, I WILL CONTACT HER AGAIN.
--- NOTE | 2021-07-08 14:47 | NUR ---
Patient alert enough this afternoon to take all pills. She was able to swallow them whole one at a time with water. I called [facility] to notify the nurse about suspected patient lice case, and was told that the nurses do not work on weekends. Will notify them of this on Saturday.
--- NOTE | 2021-07-08 17:13 | NUR ---
PT AWAKE AND ALERT, TRYING TO REMOVE GOWN AND BREIFS. RESPONDS APPROPRAITELY TO MOST SIMPLE QUESTIONS. BEGINS TO SAY A SENTANCE AND THEN SAYS "OH I CAN'T REMEMBER." DENIES PAIN. SHE IS REPOSITIONING IN THE BED FREQUENTLY.
--- NOTE | 2021-07-08 19:29 | NUR ---
ASSUMED CARE OF PT AT 1915. REPORT RECEIVED. PT PRESENTS IN BED. IN NO DISTRESS. SLEEPING. WILL REVIEW CHART AND PLAN OF CARE FOR THIS PT.
--- NOTE | 2021-07-09 06:30 | NUR ---
PT WAS VERY CONFUSED AND ANXIOUS DURING NIGHT. YELLING OUT. COFUSED. DID REQUIRE DOSE OF 3 MG HALDOL WHICH WAS VERY AFFECTIVE IN CALMING PT. NO ATTEMPTS OF GETTING OUT OF BED. DID PLACE BED ALARM ON FOR PT SAFETY.
--- NOTE | 2021-07-09 18:20 | NUR ---
PT AWAKE AND ALERT MOST OF THE DAY TODAY. SHE IS PLEASANTLY CONFUSED. ORIENTED TO SELF ONLY. YELLS "HELLO" AND WHEN ASKED WHAT SHE NEEDS, SHE SAYS "I NEED HELP GETTING THE POOL COVER ON THE BOAT" OR "I AM LOOKING FOR MY TO GIVE HIM HIS KEYS." SHE IS MOVING IN THE BED FREQUENTLY, BUT NOT TRYING TO GET OUT OF BED OR PULL AT LINES. SHE ATE ALL OF HER LUNCH, BUT HAS SAID SHE DOES NOT WANT TO EAT DINNER YET. VITALS STABLE. 2LNC
--- NOTE | 2021-07-09 23:23 | NUR ---
ASSUMED CARE OF PT AT 1930, REPORT RECEIVED FROM PADILLA SAUER. PT RESTING IN BED, ORIENTED TO SELF ONLY. PT FREQUENTLY YELLING OUT FOR "DON", ASKING FOR HELP GETTING OUT OF BED. MOVEMENT IN ALL EXTREMITIES, WEAKNESS NOTED T/O. VITALS WNL. 2L NC IN PLACE, SPO2 >90%. ACTIVE BOWEL TONES. ATTENDS IN PLACE FOR INCONTINENCE. PT PARANOID ABOUT CARE BEING PROVIDED, WITH EXPLANATION WILL ALLOW MOST CARE.
--- NOTE | 2021-07-10 05:37 | NUR ---
SHIFT SUMMARY PT CONFUSED T/O SHIFT, PARANOID ABOUT STAFF HARMING HER. YELLING OUT FOR "DRAKE" AND "DON". PRN HALDOL GIVEN X1 AND PRN ATIVAN GIVEN X1. PT PULLED OUT ONLY IV ACCESS THIS AM. PT INCONTINENT OF URINE TWICE OVERNIGHT. PT ON 2L NC TO MAINTAIN SPO2 >90%, PULLS OFF OCCASIONALLY. MOSTLY COOPERATIVE WITH CARE, HELPS WITH TURNING TO CLEAN. FREQUENTLY MOVES SELF AROUND IN BED, BED ALARM ON FOR SAFETY.
--- NOTE | 2021-07-10 07:29 | NUR ---
RECIEVED REPORT FROM AIR BATTLE MANAGER RN. LACY IS CURRENTLY SLEEPING IN ROOM. WILL LET HER REST FOR A BIT LONGER THIS MORNING.
--- NOTE | 2021-07-10 10:18 | NUR ---
PATIENT IS A 1:1 FEEDER, SHE DID EAT 100% OF HER BREAKFAST WITH HELP. SHE REMAINS SLEEPY BUT WAS AWAKE TO EAT AND FALL RIGHT BACK TO SLEEP. HER WAS WASHED WITH WARM WASH CLOTH AFTER HER MEAL. HER ATTENDS CHECKED AND IT IS STILL DRY. ASKED HER IF SHE WANTED TO WATCH A [employer] MOVIE AND SHE SAID YES. HER TV WAS TURNED TO THE [employer] CHANNEL FOR HER. SHE IS CURRENTLY RESTING QUIETLY AT THIS TIME.
[2021-07-10] MEDS ORDERED: ABILIFY MYCITE5 M1 PO (13:45)
[2021-07-10] MEDS ORDERED: CEFP200 PO (13:46)
[2021-07-10] MEDS ORDERED: VISBIOME 112.51 EACH PO (13:47)
--- NOTE | 2021-07-10 17:53 | NUR ---
PATIENT TRANSFERED BACK TO HER CARE FACILITY [facility]. SHE WENT VIA STRETCHER AT 1610. ALL HER BELONGINGS WERE SENT WITH HER. STAFF AT [facility] HAD BEEN CALLED AROUND 1500 ABOUT ETA AND TO GIVE REPORT TO THE PLATER HELPER.
== END 2021-07-10 16:15 | disposition home or self-care (01) | DRG 177 ==
LOC: ER 18:26 → ERHOLD 22:42 → ICUE 22:42
PROVIDERS: Emergency Medicine; Family Medicine; Internal Medicine; Radiology Diagnostic Radiology; ADMIT Internal Medicine
PROC: 5A09357 Assistance with Respiratory Ventilation, Less than 24 Consecutive Hours, Continuous Positive Airway Pressure (ICD-10-PCS; principal; 2021-07-03)
DX: J69.0 Pneumonitis due to inhalation of food and vomit (principal); J96.01 Acute respiratory failure with hypoxia; G92.8 Other toxic encephalopathy; R55 Syncope and collapse; R00.1 Bradycardia, unspecified; E83.39 Other disorders of phosphorus metabolism; B85.0 Pediculosis due to Pediculus humanus capitis; I27.21 Secondary pulmonary arterial hypertension; E11.22 Type 2 diabetes mellitus with diabetic chronic kidney disease; N18.9 Chronic kidney disease, unspecified; R40.0 Somnolence; T42.6X5A Adverse effect of other antiepileptic and sedative-hypnotic drugs, initial encounter; E11.65 Type 2 diabetes mellitus with hyperglycemia; I12.9 Hypertensive chronic kidney disease with stage 1 through stage 4 chronic kidney disease, or unspecified chronic kidney disease; E11.42 Type 2 diabetes mellitus with diabetic polyneuropathy; F32.A Depression, unspecified; G47.33 Obstructive sleep apnea (adult) (pediatric); Z28.89 Immunization not carried out for other reason; I25.10 Atherosclerotic heart disease of native coronary artery without angina pectoris; G40.909 Epilepsy, unspecified, not intractable, without status epilepticus; E78.5 Hyperlipidemia, unspecified; Z96.641 Presence of right artificial hip joint; Z88.0 Allergy status to penicillin; Z79.899 Other long term (current) drug therapy; Z79.82 Long term (current) use of aspirin; Z79.4 Long term (current) use of insulin; Z86.73 Personal history of transient ischemic attack (TIA), and cerebral infarction without residual deficits; Z79.02 Long term (current) use of antithrombotics/antiplatelets; Z98.890 Other specified postprocedural states
CPT/HCPCS: 36415; 36600; 51703; 70450; 70551; 71045; 80048; 80053; 80069; 80076; 81001; 82140; 82803; 82947; 83735; 83880; 84100; 84443; 84484; 85025; 85651; 86140; 92610; 93005; 93010; 93306; 94660; 94761; 96374; 96375; 97110; 97162; 97530; 99285-25; A9270; J0360; J0696; J1630; J1650; J1815; J1940; J1953; J2060; J2405; J2930; J7030; J7050; J7060; P9612

== ENCOUNTER 2021-07-11 23:31 | Emergency (ER) | payer MEDICARE, OTHER ==
[~2021-07-11] VITALS: Ht 170.2 cm; Wt 85.7 kg
[~2021-07-11 23:31] MED LIST changes: +ABILIFY MYCITE5 M1 PO; +ABILIFY MYCITE5 M2 PO; +ACET325 PO; +BISA10S PR; +CEFP200 PO; +DULCOLAX400 MG/5 M PO; +LOPERAMIDE2 M8 PO; +MIRALAX17 GM PO; +ONDA4ODT MM; +PARO30 PO; +Prinivil10 MG PO; +RISP2 PO; +Seroquel Xr50 MG PO; +VISBIOME 112.51 EACH PO; +Vitamin D1000 UNI1 PO
[2021-07-12 02:26] LABS: Source, Urine Catheter
[2021-07-12 02:50] LABS: Appearance, Urine Clear (Clear); Bilirubin, Urine Neg (Neg); Blood, Urine Neg (Neg); Color, Urine Yellow (P-Yellow); Glucose Qualitative, Urine Neg (Neg); Ketones, Urine 1+ (Neg); Leukocyte Esterase, Urine Neg (Neg); Nitrite, Urine Neg (Neg); Protein, Urine 1+ (Neg); Urobilinogen, Urine NORM (Normal)
[2021-07-12 03:34] LABS: Influenza A, PCR NEGATIVE (NEGATIVE); Influenza B, PCR NEGATIVE (NEGATIVE); Resp Syncytial Virus, PCR NEGATIVE (NEGATIVE); SARS-Cov-2 (COVID-19) PCR, MMC NEGATIVE (NEGATIVE)
[2021-07-12 03:41] LABS: Base Excess Venous 15.7 mmol/L; Bicarbonate Venous 36.2 mmol/L (24.0-30.0); PCO2 Venous 58.9 mmHg (38-42); PO2 Venous 37.5 mmHg (38-42); pH Blood Venous 7.44 (7.34-7.37)
[2021-07-12 04:07] LABS: BASOPHILS ABSOLUTE AUTO 0.04 K/mm3 (0.00-0.23); BASOPHILS PERCENT AUTO 1 % (0-2); EOSINOPHILS ABSOLUTE AUTO 0.16 K/mm3 (0.00-0.68); EOSINOPHILS PERCENT AUTO 2 % (0-6); Hematocrit 40.1 % (33.0-51.0); Hemoglobin 13.3 g/dL (11.5-16.0); IMMATURE GRAN ABSOLUTE AUTO 0.03 K/mm3 (0.00-0.10); IMMATURE GRAN PERCENT AUTO 0 % (0-1); LYMPHOCYTES ABSOLUTE AUTO 1.97 K/mm3 (0.84-5.20); LYMPHOCYTES PERCENT AUTO 23 % (21-46); MONOCYTES ABSOLUTE AUTO 1.06 K/mm3 (0.16-1.47); MONOCYTES PERCENT AUTO 12 % (4-13); Mean Corpuscular HGB 30.9 pg (26.0-34.0); Mean Corpuscular HGB Conc 33.2 g/dL (31.5-36.5); Mean Corpuscular Volume 93 fL (80-100); Mean Platelet Volume 9.4 fL (9.1-12.4); NEUTROPHILS PERCENT AUTO 63 % (41-73); Platelet Count 219 K/mm3 (150-400); RDW Coefficient Variation 12.1 % (11.7-14.2); RDW Standard Deviation 41.6 fL (35.1-46.3); White Blood Cell Count 8.76 K/mm3 (4.00-11.30)
[2021-07-12 04:26] LABS: Albumin, Blood 2.6 g/dL (3.4-5.0); Albumin/Globulin Ratio 0.6 (0.8-1.8); Bilirubin, Total 0.5 mg/dL (0.1-1.0); Calcium, Blood 9.8 mg/dL (8.5-10.1); Creatinine, Blood 1.04 mg/dL (0.40-1.00); Potassium, Blood 3.8 mmol/L (3.5-5.5); Total Protein, Blood 6.6 g/dL (6.4-8.2)
== END 2021-07-12 06:13 | disposition home or self-care (01) ==
LOC: ER 23:31
PROVIDERS: Student in an Organized Health Care Education/Training Program
DX: F03.91 Unspecified dementia, unspecified severity, with behavioral disturbance (principal); R45.1 Restlessness and agitation; Z20.822 Contact with and (suspected) exposure to COVID-19; E11.22 Type 2 diabetes mellitus with diabetic chronic kidney disease; I12.9 Hypertensive chronic kidney disease with stage 1 through stage 4 chronic kidney disease, or unspecified chronic kidney disease; N18.9 Chronic kidney disease, unspecified; E11.40 Type 2 diabetes mellitus with diabetic neuropathy, unspecified; Z79.899 Other long term (current) drug therapy; Z88.0 Allergy status to penicillin; Z79.4 Long term (current) use of insulin
CPT/HCPCS: 0241U; 36415; 80053; 82803; 82947; 85025; 93005; 93010; 99285-25; A9270; P9612

== ENCOUNTER → 2021-08-10 | Outpatient (CLI) | payer MEDICARE, OTHER ==
[2021-08-10 15:26] LABS: Hematocrit 39.4 % (33.0-51.0); Hemoglobin 12.6 g/dL (11.5-16.0); Mean Corpuscular Volume 97 fL (80-100); Platelet Count 156 K/mm3 (150-400); RDW Coefficient Variation 12.3 % (11.7-14.2); RDW Standard Deviation 43.8 fL (35.1-46.3); Red Blood Cell Count 4.07 M/mm3 (3.80-5.20); White Blood Cell Count 8.86 K/mm3 (4.00-11.30)
[2021-08-10 15:57] LABS: BASOPHILS ABSOLUTE MAN 0.08 K/mm3 (0.00-0.23); BASOPHILS PERCENT MAN 1 % (0-2); EOSINOPHILS ABSOLUTE MAN 0.26 K/mm3 (0.00-0.68); EOSINOPHILS PERCENT MAN 3 % (0-6); LYMPHOCYTES ABSOLUTE MAN 1.86 K/mm3 (0.84-5.20); LYMPHOCYTES PERCENT MAN 21 % (21-46); MONOCYTES ABSOLUTE MAN 0.26 K/mm3 (0.16-1.47); MONOCYTES PERCENT MAN 3 % (4-13); NEUTROPHILS ABSOLUTE MAN 6.37 K/mm3 (1.96-9.15); SEG NEUTROPHILS PERCENT MAN 72 % (41-73); TOTAL CELLS COUNTED 100
[2021-08-10 16:05] LABS: Alanine Aminotransfer (ALT/SGP 29 U/L (12-78); Albumin, Blood 2.8 g/dL (3.4-5.0); Albumin/Globulin Ratio 0.9 (0.8-1.8); Alk Phos 116 U/L (50-136); Anion Gap 2 mmol/L (6-16); Aspartate Aminotrans (AST/SGOT 26 U/L (12-37); Bilirubin, Total 0.4 mg/dL (0.1-1.0); Blood Urea Nitrogen 24 mg/dL (8-24); Bun/Creatinine Ratio 21.1 (12.0-20.0); CO2, Blood 33 mmol/L (21-32); Calcium, Blood 8.9 mg/dL (8.5-10.1); Chloride, Blood 110 mmol/L (98-108); Creatinine, Blood 1.14 mg/dL (0.40-1.00); Globulin, Blood 3.1 g/dL (2.2-4.0); Glomerular Filtration Rate 46 (60-); Glucose, Blood 158 mg/dL (70-99); Potassium, Blood 4.5 mmol/L (3.5-5.5); Sodium, Blood 145 mmol/L (136-145); Total Protein, Blood 5.9 g/dL (6.4-8.2); Valproic Acid 49.6 ug/mL (50.0-100.0)
== END | disposition home or self-care (01) ==
LOC: LAB SHORT 08:15
PROVIDERS: Psychiatry & Neurology Psychiatry
DX: Z51.81 Encounter for therapeutic drug level monitoring (principal); E11.00 Type 2 diabetes mellitus with hyperosmolarity without nonketotic hyperglycemic-hyperosmolar coma (NKHHC); Z79.899 Other long term (current) drug therapy
CPT/HCPCS: 80053; 80164; 85007; 85027

== ENCOUNTER → 2021-09-06 | Outpatient (CLI) | payer MEDICARE, OTHER ==
[2021-09-06 19:20] LABS: Source, Urine Clean Catch
[2021-09-06 20:19] LABS: Appearance, Urine Hazy (Clear); Bilirubin, Urine Neg (Neg); Blood, Urine Neg (Neg); Color, Urine Yellow (P-Yellow); Glucose Qualitative, Urine Neg (Neg); Ketones, Urine Neg (Neg); Leukocyte Esterase, Urine 1+ (Neg); Nitrite, Urine Neg (Neg); Protein, Urine Neg (Neg); Urobilinogen, Urine NORM (Normal)
[2021-09-06 21:31] LABS: Red Blood Cells, Urine 0-2 /hpf (0-2)
[2021-09-06 21:32] LABS: Bacteria Mod /hpf; Squamous Epithelial Cells Mod /hpf (Few)
== END | disposition home or self-care (01) ==
LOC: LAB SHORT 12:09 → LAB 12:09
PROVIDERS: Family Medicine
DX: N39.0 Urinary tract infection, site not specified (principal)
CPT/HCPCS: 81001; 87086

== ENCOUNTER 2021-11-13 04:04 | Inpatient (IN) | payer MEDICARE, OTHER ==
[~2021-11-13] VITALS: Ht 172.7 cm; Wt 85.9 kg
[~2021-11-13 04:04] MED LIST changes: -METO100ER PO; +METO25ER PO
[2021-11-13 04:26] LABS: BASOPHILS ABSOLUTE AUTO 0.04 K/mm3 (0.00-0.23); BASOPHILS PERCENT AUTO 0 % (0-2); EOSINOPHILS ABSOLUTE AUTO 0.08 K/mm3 (0.00-0.68); EOSINOPHILS PERCENT AUTO 1 % (0-6); Hemoglobin 12.7 g/dL (11.5-16.0); IMMATURE GRAN ABSOLUTE AUTO 0.05 K/mm3 (0.00-0.10); IMMATURE GRAN PERCENT AUTO 1 % (0-1); LYMPHOCYTES ABSOLUTE AUTO 1.41 K/mm3 (0.84-5.20); LYMPHOCYTES PERCENT AUTO 14 % (21-46); MONOCYTES ABSOLUTE AUTO 0.54 K/mm3 (0.16-1.47); MONOCYTES PERCENT AUTO 5 % (4-13); Mean Corpuscular HGB 31.6 pg (26.0-34.0); Mean Corpuscular HGB Conc 33.4 g/dL (31.5-36.5); Mean Corpuscular Volume 95 fL (80-100); Mean Platelet Volume 8.6 fL (9.1-12.4); NEUTROPHILS ABSOLUTE AUTO 8.14 K/mm3 (1.96-9.15); NEUTROPHILS PERCENT AUTO 79 % (41-73); Platelet Count 201 K/mm3 (150-400); RDW Coefficient Variation 12.1 % (11.7-14.2); RDW Standard Deviation 42.2 fL (35.1-46.3); Red Blood Cell Count 4.02 M/mm3 (3.80-5.20); White Blood Cell Count 10.26 K/mm3 (4.00-11.30)
[2021-11-13 04:48] LABS: Albumin, Blood 3.3 g/dL (3.4-5.0); Albumin/Globulin Ratio 0.8 (0.8-1.8); Bilirubin, Total 0.7 mg/dL (0.1-1.0); Bun/Creatinine Ratio 32.6 (12.0-20.0); Creatinine, Blood 1.29 mg/dL (0.40-1.00); Globulin, Blood 4.3 g/dL (2.2-4.0); Potassium, Blood 4.3 mmol/L (3.5-5.5); Total Protein, Blood 7.6 g/dL (6.4-8.2)
[2021-11-13 05:50] LABS: Source, Urine Foley catheter
[2021-11-13 05:53] LABS: Appearance, Urine Clear (Clear); Bilirubin, Urine Neg (Neg); Blood, Urine 1+ (Neg); Color, Urine Yellow (P-Yellow); Glucose Qualitative, Urine 3+ (Neg); Ketones, Urine 2+ (Neg); Leukocyte Esterase, Urine Neg (Neg); Nitrite, Urine Neg (Neg); Protein, Urine 2+ (Neg); Urobilinogen, Urine NORM (Normal)
[2021-11-13 06:01] LABS: Bacteria Rare /hpf; Red Blood Cells, Urine 0-2 /hpf (0-2); Squamous Epithelial Cells Rare /hpf (Few); White Blood Cells, Urine 0-2 /hpf (0-5)
--- NOTE | 2021-11-13 06:20 | NUR ---
Report recieved from ER nurse María SAUER. Recieved to ICU at this time. intubated and sedated. unable to get admission hx. propofol infusing at 40 mcg and Fent 100 mcg/hr from ER will continue with rates and titrate as needed. ETT 7.[address] 24 cm at gums. OG in place, placed to LIS with large amount of watery brown return. vent settings set up by RT. AC/VC18/400/5/30%. lungs diminshed with exp coarsness. hematoma noted to middle forehead, middle of chest and bruising to right cheek by corner of mouth. 0700-report given to day shift RN
[2021-11-13 08:56] LABS: U Amphetamine Screen Not Detected; U Barbituate Screen Not Detected; U Benzodiazapine Screen Not Detected; U Buprenorphine Screen Not Detected; U Cannabinoids Screen Not Detected; U Cocaine Screen Not Detected; U Methadone Screen Not Detected; U Methamphetamine Screen Not Detected; U Opiates Screen Not Detected; U Oxycodone Screen Not Detected; U Phencyclidine Screen Not Detected; U Propoxyphene Screen Not Detected
--- NOTE | 2021-11-13 09:27 | NUR ---
CARE ASSUMED OF PT AT 0700. PT SEDATED ON VENT 18/400/30%/5. PROPOFOL AT 40MCG. FENT GTT AT 100MCG/HR. PT GRIMACES W PAIN. DOES NOT FOLLOW COMMANDS. PT IS HYPERTENSIVE; HYDRALAZINE IV GIVEN, LOPRESSOR P.T. GIVEN. RECTAL TEMP PROBE PLACED; TEMP 102.3. TYLENOL PT GIVEN, ICE PACKS PLACED, BLANKETS REMOVED. PT WITH SCATTERED BRUISES T/O, SMALL HEMATOMA TO FOREHEAD, HEMATOMA TO MID CHEST. PT IN TRIGEMENY RATE 80'S. NS STARTED AT 75CC/HR. DR CHRISTINA CONSULTED AND GIVEN UPDATE.
--- NOTE | 2021-11-13 10:15 | NUR ---
DR CHRISTINA AT BEDSIDE. PROPOFOL AND FENTANYL PLACED ON STANDBY. PT PLACED ON PS 15/5 30%. PT CONTINUES TO GRIMACE TO PAIN BUT NOT WAKING UP AT THIS POINT.
--- NOTE | 2021-11-13 10:22 | NUR ---
DR CHRISTINA AT BEDSIDE. RIGHT ARM/SHOULDER STARTED SHAKING, EYES DIRECTED DOWN. ATIVAN 4MG ORDERED STAT BY DR CHRISTINA, THEN HELD THE SHAKING MAY NOT BE SIZURE ACTIVITY
--- NOTE | 2021-11-13 10:53 | NUR ---
PT VIOLENTLY SHAKING TO RIGHT SIDE OF BODY, PUPILS DEVIATING HARD RIGHT AND DOWNWARD. DR CHRISTINA BROUGHT TO BEDSIDE. ATIVAN 4MG GIVEN STAT IV. PROPOFOL RESTARTED AT 40MCG. FENTANYL TO BE DC'D. VENT PLACED BACK TO FULL SUPPORT AC 18/400/30%/5; RT NOTIFIED. TEMP RAISING; AT 103.3. WET ICED TOWEL PLACED ON CHEST W FAN, NEW ICE PACKS REPLACED. LP TO BE PREFORMED
[2021-11-13 11:03] LABS: Free Thyroxine 1.05 ng/dL (0.70-1.60); Thyroid Stimulating Hormone 9.13 uIU/mL (0.360-4.800)
[2021-11-13 12:24] LABS: Influenza A, PCR NEGATIVE (NEGATIVE); Influenza B, PCR NEGATIVE (NEGATIVE); Resp Syncytial Virus, PCR NEGATIVE (NEGATIVE); SARS-Cov-2 (COVID-19) PCR, MMC NEGATIVE (NEGATIVE)
--- NOTE | 2021-11-13 12:40 | NUR ---
PT HYPOTENSIVE. DR CHRISTINA NOTIFIED. 1L NS BOLUS STARTED; PT IS RESPONDING WELL TO FLUIDS. PICC LINE STARTED TO LAUREEN; PLACED W/O DIFFICULTY. TORADOL IV GIVEN FOR TEMP.
--- NOTE | 2021-11-13 14:25 | NUR ---
UNSECCESSFUL LP ATTEMPT BY DR CHRISTINA, ANESTHESIA TO TRY PRIOR TO RADIOLOGY. TOP TAPER MACHINE NOTIFIED. PROPROFOL AT 30MCG. PT HTN AGAIN.
[2021-11-13 14:51] LABS: Valproic Acid 35.7 ug/mL (50.0-100.0)
--- NOTE | 2021-11-13 16:50 | NUR ---
ANESTHESIOLOGIST DECLINED TO PERFORM LP PT IS ON PLAVIX. DR CHRISTINA AWARE. PROPOFOL REMAINS AT 30MCGS. PT REMAINS MINIMALLY RESPONSIVE. NO OTHER CHANGES.
--- NOTE | 2021-11-13 21:00 | NUR ---
Turned and repositioned, sats drop into the 80s. inline suction to ETT with large amount of thick hobbs secreations. hyperoxgenated until recovered.
[2021-11-14 04:06] LABS: BASOPHILS ABSOLUTE AUTO 0.03 K/mm3 (0.00-0.23); BASOPHILS PERCENT AUTO 0 % (0-2); EOSINOPHILS ABSOLUTE AUTO 0.03 K/mm3 (0.00-0.68); EOSINOPHILS PERCENT AUTO 0 % (0-6); Hematocrit 29.1 % (33.0-51.0); Hemoglobin 10.1 g/dL (11.5-16.0); IMMATURE GRAN ABSOLUTE AUTO 0.04 K/mm3 (0.00-0.10); IMMATURE GRAN PERCENT AUTO 0 % (0-1); LYMPHOCYTES ABSOLUTE AUTO 2.13 K/mm3 (0.84-5.20); LYMPHOCYTES PERCENT AUTO 22 % (21-46); MONOCYTES ABSOLUTE AUTO 1.41 K/mm3 (0.16-1.47); MONOCYTES PERCENT AUTO 15 % (4-13); Mean Corpuscular HGB Conc 34.7 g/dL (31.5-36.5); Mean Corpuscular Volume 92 fL (80-100); Mean Platelet Volume 9.2 fL (9.1-12.4); NEUTROPHILS ABSOLUTE AUTO 6.02 K/mm3 (1.96-9.15); NEUTROPHILS PERCENT AUTO 62 % (41-73); Platelet Count 136 K/mm3 (150-400); RDW Coefficient Variation 12.4 % (11.7-14.2); RDW Standard Deviation 41.8 fL (35.1-46.3); Red Blood Cell Count 3.16 M/mm3 (3.80-5.20); White Blood Cell Count 9.66 K/mm3 (4.00-11.30)
[2021-11-14 04:40] LABS: Albumin, Blood 2.3 g/dL (3.4-5.0); Albumin/Globulin Ratio 0.7 (0.8-1.8); Bilirubin, Total 0.6 mg/dL (0.1-1.0); Bun/Creatinine Ratio 30.1 (12.0-20.0); Calcium, Blood 8.7 mg/dL (8.5-10.1); Creatinine, Blood 1.66 mg/dL (0.40-1.00); Globulin, Blood 3.2 g/dL (2.2-4.0); Potassium, Blood 2.9 mmol/L (3.5-5.5)
[2021-11-14 05:31] LABS: Total Protein, Blood 5.5 g/dL (6.4-8.2)
--- NOTE | 2021-11-14 06:34 | NUR ---
no changes in vent settings through out night. heart rate slowly deceasing to Sinus chris 40-50's this am. Levo decreased. blood pressure soft but stable. Will continue to monitor.
--- NOTE | 2021-11-14 08:03 | NUR ---
CARE OF PT ASSUMED AT 0700. PT SEDATED ON PROPOFOL AT 25MCG FOR DARIAN OF VENT: 18/400/30%/5. PT BREATHING JUST OVER THE VENT AT 19. PT HAS MINIMAL COUGH, NO GAG, NO SWALLOW. PT DOES CHEW ON ETT. EYES DEVIATE DOWNWARD. PT GRIMACES TO NOXIOUS STIMULI. PT IS BRADYCARDIC THIS AM 49-50'S. SOME MILD HYPERTENSION W DBP AROUND 50-60., RESP ARE EVEN AT THIS POINT. PT IS AFEBRILE.
--- NOTE | 2021-11-14 08:40 | NUR ---
DR CHRISTINA AT BEDSIDE, FULL UPDATE GIVEN. PT WITHDRAWALS ALL 4 EXT TO PAINFUL STIMULI. PROPOFOL PLACED ON STANDBY. 1L LR BOLUS STARTED. 80MEG K+ DOWN OGT ORDERED. OKAY TO GIVE ANTICOAGS THIS AM.
--- NOTE | 2021-11-14 08:53 | NUR ---
PROPOFOL OFF X20MIN, PT STARTED HAVING SIGNIFICANT TREMORS/SKAKING TO RIGHT SIDE ONLY WITH DEVIATION OF EYES DOWNWARD, DR CHRISTINA BROUGHT TO BEDSIDE. PROPOFOL RESTARTED, EEG ORDERED.
--- NOTE | 2021-11-14 09:18 | NUR ---
OPERATIONAL ASSISTANT NOT AVAILABLE UNTIL 11/18; DR CHRISTINA NOTIFIED.
--- NOTE | 2021-11-14 11:21 | NUR ---
PT TO BE TRANSFERED FOR EEG, BED UNAVAILABLE AT THIS TIME. LP ORDERED TO BE DONE BY RADIOLOGY; RADIOLOGY DECLINED DUE TO PLAVIX USE.
--- NOTE | 2021-11-14 12:18 | NUR ---
GLUCERNA 1.2 TUBE FEEDS STARTED AT 20CC/HR. DARK CONWAY THICK SPUTUM SAMPLE SENT FROM ETT. LUNGS NOW CLEAR T/O. SEE NEW ORDERS FROM DR CHRISTINA. NO OTHER CHANGES
--- NOTE | 2021-11-14 14:14 | NUR ---
DR CHRISTINA IN TO CHECK ON PT, UPDATE GIVEN.
--- NOTE | 2021-11-14 17:31 | NUR ---
SHIFT SUMMARY: REPORT RECEIVED FROM SHELLIE Li RN. ASSUMED CARE OF THIS PT AT APPROX 1645. THE PT REMAINS INTUBATED & SEDATED. PROPOFOL INFUSING AT 25 MCG/KG/MIN. VENT SETTINGS: 18/400/5/30% W/ O2 SATS > 95%. MONITOR SHOWS SR W/ HR 60s, BP STABLE. OGT IN PLACE W/ TUBE FEEDS INFUSING PER DIETARY ORDERS, CURRENTLY AT 20 ML/HR. OKAY TO ADVANCE TONIGHT AT 2000, GOAL RATE 40 ML/HR. LOPEZ PATENT/ DRAINING YELLOW URINE. SKIN CONDITION OVERALL INTACT W/ SCATTERED BRUISING NOTED. Q2H REPOSITIONING TO MAINTAIN SKIN INTEGRITY. WILL CONTINUE TO MONITOR & REPORT OFF TO ONCOMING RN.
--- NOTE | 2021-11-14 19:00 | NUR ---
ASSUMED CARE ASSUMED CARE OF PATIENT. REMAINS INTUBATED- AC/VC+ 14/400/5/30%. RR 15. SEDATED WITH PROPOFOL AT 25MCG/KG/MIN. MOVES ALL EXTREMITIES WEAKLY. NOT FOLLOWING COMMANDS. BILATERAL SOFT WRIST RESTRAINTS IN PLACE TO PREVENT SELF-EXTUBATION. NYSTAGMUS NOTED. MONITOR SHOWS NSR WITH OCCASIONAL PVCs, RATE 60s. BP STABLE. AFEBRILE. OG WITH GLUCERNA 1.2 AT 20CC/HR (GOAL IS 40CC/HR.) 30CC H20 FLUSHES Q4H. LOPEZ PATENT AND DRAINING TO GRAVITY. SEE SHIFT ASSESSMENT FOR FULL ASSESSMENT.
[2021-11-15 05:00] LABS: BASOPHILS ABSOLUTE AUTO 0.03 K/mm3 (0.00-0.23); BASOPHILS PERCENT AUTO 0 % (0-2); EOSINOPHILS ABSOLUTE AUTO 0.39 K/mm3 (0.00-0.68); EOSINOPHILS PERCENT AUTO 4 % (0-6); Hematocrit 31.6 % (33.0-51.0); Hemoglobin 10.6 g/dL (11.5-16.0); IMMATURE GRAN ABSOLUTE AUTO 0.04 K/mm3 (0.00-0.10); IMMATURE GRAN PERCENT AUTO 0 % (0-1); LYMPHOCYTES ABSOLUTE AUTO 1.12 K/mm3 (0.84-5.20); LYMPHOCYTES PERCENT AUTO 12 % (21-46); MONOCYTES ABSOLUTE AUTO 1.19 K/mm3 (0.16-1.47); MONOCYTES PERCENT AUTO 12 % (4-13); Mean Corpuscular HGB 31.9 pg (26.0-34.0); Mean Corpuscular HGB Conc 33.5 g/dL (31.5-36.5); Mean Corpuscular Volume 95 fL (80-100); Mean Platelet Volume 9.1 fL (9.1-12.4); NEUTROPHILS ABSOLUTE AUTO 6.79 K/mm3 (1.96-9.15); NEUTROPHILS PERCENT AUTO 71 % (41-73); Platelet Count 146 K/mm3 (150-400); RDW Coefficient Variation 12.9 % (11.7-14.2); RDW Standard Deviation 44.7 fL (35.1-46.3); Red Blood Cell Count 3.32 M/mm3 (3.80-5.20); White Blood Cell Count 9.56 K/mm3 (4.00-11.30)
[2021-11-15 05:36] LABS: Albumin, Blood 2.2 g/dL (3.4-5.0); Albumin/Globulin Ratio 0.6 (0.8-1.8); Bilirubin, Total 0.4 mg/dL (0.1-1.0); Bun/Creatinine Ratio 27.2 (12.0-20.0); Calcium, Blood 8.6 mg/dL (8.5-10.1); Creatinine, Blood 1.58 mg/dL (0.40-1.00); Globulin, Blood 3.4 g/dL (2.2-4.0); Magnesium, Blood 1.8 mg/dL (1.6-2.4); Potassium, Blood 3.7 mmol/L (3.5-5.5); Total Protein, Blood 5.6 g/dL (6.4-8.2)
--- NOTE | 2021-11-15 06:53 | NUR ---
SHIFT SUMMARY NO ACUTE CHANGES DURING NOC. REMAINS INTUBATED WITH VENT SETTINGS UNCHANGED- AC/VC+ 14/400/5/30%. SEDATED WITH PROPOFOL AT 25MCG/KG/MIN T/O SHIFT. NO OVERT SEIZURE ACTIVITY NOTED, BUT DID HAVE SHORT PERIOD OF RIGHT THIGH TWITCHES DURING BATH. MOVES ALL EXTREMITIES. STILL NOT FOLLOWING ANY COMMANDS. BILATERAL EYES WITH DOWNWARD GAZE. NO NYSTAGMUS NOTED THIS AM. BILATERAL SOFT WRIST RESTRAINTS REMAIN IN PLACE. BP STABLE. MONITOR SHOWS NSR WITH OCCASIONAL PVCs. TMAX 99.7F. OG WITH TUBE FEEDING AT GOAL RATE OF 40CC/HR. RESIDUAL CHECKS <10CC. LOPEZ PATENT AND DRAINING TO GRAVITY. WILL REPORT TO ONCOMING RN WHEN AVAILABLE.
--- NOTE | 2021-11-15 10:15 | NUR ---
AM NOTE.... ASSUMED CARE OF PT AT 0700 THE PT IS INTUBATED AND SEDATED THE PT IS ON PROPOFOL AT 25MCG/KG/HR, THE PT RESPONDS TO PAINFUL STIMULI BUT DOES NOT FOLLOW COMMANDS. THE PT'S ET TUBE IS 7.5 AND 26 AT THE TEETH/GUMS THE VENT SETTINGS ARE AC/VC:14/400/5/30% WITH O2 SATS >92% L/S CLEAR AND DIM IN THE BASES. LARGE AMOUNT OF THICK CONWAY/WHITE SECRETIONS WERE SUCTIONED VIA THE ET TUBE. THE PT'S OG TUBE IS RUNNING TUBE FEEDS AT A GOAL OF 40MLS/HR WITH NO RESIDUALS NOTED. BT PRESENT AND HYPOACTIVE, ABD SOFT TO PALPATION. THE PT IS IN SR W/A FIRST DEGREE IN THE 60'S-70'S BP STABLE WITH MAPS >65. THE PT HAS DEPENDENT EDEMA TO HER BUE, THEY ARE FLOATED ON PILLOWS. THE PT'S LOPEZ IS PATENT AND DRAINING TO GRAVITY. DR. CHRISTINA AT THE BEDSIDE TO ASSESS THE PT, THE PT'S PROPOFOL WAS STOPPED AT [address] CHRISTINA FOR A SEDATION VACATION, THE PT SLOWLY WAS ABLE TO OPEN HER EYES BUT NOT FOLLOW ANY COMANNDS NO S/SX OF SEIZURES NOTED AT THIS TIME. WILL CONTINUE TO MONITOR.
[2021-11-15 10:39] LABS: Vancomycin, Trough 19.2 ug/mL (5.0-10.0)
--- NOTE | 2021-11-15 14:49 | NUR ---
PT UPDATE.... WHILE THIS RN WAS REVIEWING THE PT'S CHEST XRAY FROM THIS AM THE XRAY REPORT STATED THE PICC LINE WAS IN THE PT'S RIGHT ATRIUM. THIS WAS REPORTED TO DR. CHRISTINA WHO REVIEWED THE CHEST XRAY. DR. CHRISTINA THEN GAVE VERBAL ORDERS TO THIS RN TO RETRACT THE PICC LINE OUT 3 CM. THIS WAS DONE AND THE DRESSING WAS CHANGED. THE NEW PICC LINE MEASUREMENT IS NOW 5CM. SINCE THE PROPOFOL HAS BEEN PLACED ON STAND BY THE PT WAS ABLE TO OPEN HER EYES TO VERBAL AND STIMULI BUT NOT FOLLOW DIRECTIONS, THE PT'S EYES WERE NOT TRACKING MOVEMENT. THE PT WAS NOT MOVING HER EXTREMITIES TO COMMAND BUT COULD MOVE THEM TO STIMULATION. AFTER THE PICC LINE DRESSING CHANGE THE PT HAD A LARGE LOOSE BM, PRIOR TO PERSONAL CARE THE PROPOFOL WAS TURNED BACK ON TO 30 MCG/KG/HR HELP WITH THE PT'S COUGHING AND CHEWING ON THE ET TUBE. WILL CONTINUE TO MONITOR.
--- NOTE | 2021-11-15 18:48 | NUR ---
SHIFT SUMMARY.... THE PT HAS BEEN IN SR W/A FRIST DEGREE WITH BIGEMINAL PVCs FOR MOST OF THE AFTERNOON, DR. CHRISTINA AWARE. WHEN THE PT WAS TURNED HARD ON TO HER LEFT SIDE THE BIGEMINY STOPPED AND SHE CONVERTED BACK TO A NSR W/FIST DEGREE. THE PT'S OTHER VS STABLE, NO CHANGES TO THE VENT. THE PT HAS HAD 2 LARGE LOOSE BROWN BMS THIS SHIFT. THE PT'S LOPEZ IS PATENT AND DRAINING TO GRAVITY. THE PT CONTINUES TO HAVE A LARGE AMOUNT OF THIN CLEAR/WHITE SECRETIONS FROM THE ET TUBE AND COPIOUS AMOUNTS OF ORAL SECRETIONS. THE PT HAS BEEN TURNED Q2 HRS WITH CATH CARE AND CARLEY CARE NEEDED. NO RESIDUALS NOTED FROM THE OG TUBE. WILL CONTINUE TO MONITOR UNTIL REPORT IS GIVEN TO ONCOMING RN.
--- NOTE | 2021-11-15 20:30 | NUR ---
ASSESSMENT/ASSUMED CARE PT INTUBATED AND ON [facility] VENT. VENT SETTINGS AC/VC 14/400/5/30%. LUNGS CLEAR BUT DECREASED IN THE BASES. SUCTIONED LARGE AMT VIA ET TUBE AND ORAL OF CLEAR FLUID. HEART RATE REGULAR. BP STABLE. BT+ HYPOACTIVE. OG WITH TUBE FEED GLUCERNIA AT GOAL RATE 40 ML/HR, WATER 30 ML Q4HR. PICC LINE TO RIGHT UPPER ARM WITH NS AT 10 ML/HR FOR ANTIBIOTICS, PROPOFOL AT 25 MCQ/KG/MIN. SITE CLEAR 5CM OUT. LOPEZ CATH PATENT DRAINING CLEAR YELLOW URINE. ORAL CARE AND REPOSITIONED. BILAT SOFT WRIST RESTRAINTS ON. PT NOT FOLLOW INSTRUCTIONS. MOVES UPPER EXT WITH PAINFUL STIMULI.
--- NOTE | 2021-11-15 22:30 | NUR ---
BEDBATH PT INCONT OF STOOL. BEDBATH DONE AND FLEXI SEAL PLACED FOR LIQUID STOOL. REPOSITIONED PT.
--- NOTE | 2021-11-16 01:38 | NUR ---
HYPOTENSION CALL TO DR CHRISTINA REGARDING HYPOTENSION. STARTED LR BOLUS 1 LITER. STARTED LEVOPHED 4 MCQ/MIN TO KEEP MAP GREATER THAN 65.
[2021-11-16 03:24] LABS: BASOPHILS ABSOLUTE AUTO 0.04 K/mm3 (0.00-0.23); BASOPHILS PERCENT AUTO 1 % (0-2); EOSINOPHILS ABSOLUTE AUTO 0.55 K/mm3 (0.00-0.68); EOSINOPHILS PERCENT AUTO 6 % (0-6); Hematocrit 30.7 % (33.0-51.0); Hemoglobin 10.3 g/dL (11.5-16.0); IMMATURE GRAN ABSOLUTE AUTO 0.05 K/mm3 (0.00-0.10); IMMATURE GRAN PERCENT AUTO 1 % (0-1); LYMPHOCYTES ABSOLUTE AUTO 1.42 K/mm3 (0.84-5.20); LYMPHOCYTES PERCENT AUTO 17 % (21-46); MONOCYTES ABSOLUTE AUTO 1.42 K/mm3 (0.16-1.47); MONOCYTES PERCENT AUTO 17 % (4-13); Mean Corpuscular HGB 32.1 pg (26.0-34.0); Mean Corpuscular HGB Conc 33.6 g/dL (31.5-36.5); Mean Corpuscular Volume 96 fL (80-100); Mean Platelet Volume 9.5 fL (9.1-12.4); NEUTROPHILS ABSOLUTE AUTO 5.06 K/mm3 (1.96-9.15); NEUTROPHILS PERCENT AUTO 59 % (41-73); Platelet Count 143 K/mm3 (150-400); RDW Coefficient Variation 12.8 % (11.7-14.2); RDW Standard Deviation 44.4 fL (35.1-46.3); Red Blood Cell Count 3.21 M/mm3 (3.80-5.20); White Blood Cell Count 8.54 K/mm3 (4.00-11.30)
[2021-11-16 03:39] LABS: Bun/Creatinine Ratio 31.5 (12.0-20.0); Calcium, Blood 8.5 mg/dL (8.5-10.1); Creatinine, Blood 1.3 mg/dL (0.40-1.00); Potassium, Blood 3.5 mmol/L (3.5-5.5)
--- NOTE | 2021-11-16 04:30 | NUR ---
INCREASED FIO2 TURNED PT TO RIGHT. SPO2 DOWN TO 79%. SUCTIONED LARGE AMT BLOOD SECRECTIONS VIA ETT. RT INCREASED FIO2 TO 50%. SPO2 BACK UP TO 98%.
--- NOTE | 2021-11-16 06:11 | NUR ---
SHIFT SUMMARY PT CONT ON VENT DURING THE NIGHT. VENT SETTINGS AC/VC 14/400/5/40%. FIO2 INCREASED DURING THE NIGHT TO 50% DUE TO FIO2 DOWN TO 79%. SUCTIONED LARGE AMT BLOODY SECRECTIONS VIA ETT. SPO2 CURRENTLY AT 97%. FIO2 40%. LARGE AMT CLEAR SECRECTIONS ORALLY. HEART RATE REGULAR. GIVEN FLUID BOLUS 1 LITER AND STARTED ON LEVOPHED FOR HYPOTENSION. CURRENTLY LEVOPHED ON STANDBY. MONITOR BP TO KEEP MAP GREATER THAN 65. PICC DRSG CHANGED. PROPOFOL AT 25 MCQ/KG/MIN FOR SEDATION. PT MOVES UPPER EXT WITH PAINFUL STIMULI. NOT FOLLOWING INSTRUCTIONS. BILAT SOFT WRIST RESTRAINTS ON. PT TURNED Q2HRS. REPORT TO ON COMING NURSE
--- NOTE | 2021-11-16 09:28 | NUR ---
DR CHRISTINA ROUNDED, PROPOFOL STOPPED AT 0915, WCTM
--- NOTE | 2021-11-16 11:58 | NUR ---
PATIENT FAILED SBTX2, KEEPING OFF SEDATION, PROPOFOL STOPPED AT 0915, PATIENT BACK ON ACVC SETTINGS, WCTM
--- NOTE | 2021-11-16 18:35 | NUR ---
PATIENT UNABLE TO MAKE NEEDS KNOWN, DEMETIA AT BASELINE, OFF SEDATION SINCE 914 THIS AM, RESPONDS TO VOICE, GRIMACES AND WITH DRAWS FROM STIMULATION. RESTRAINT ORDER IN, POOR CIRCULATION NI OCTAVIA HANDS. FAILED SBT X2, APNEA, BACK ON ACVC 40% FIO2, 5 PEEP, 14 RATE, TV 400. 24 AT THE TEETH, 7.5. PICC LINE PULLED 2CM MORE OUT PER DR CHRISTINA, PATIENT HAS STILL CONITNUED TO FLIP IN AND OUT OF SNR, BIGEMONY, AND TRIGEMONY. DR CHRISTINA AWARE OF THE TRIGEMINY RHYTHM NOW. MAGNESIUM AND POTASSIUM REPLACEMENTS JUST ORDERED, WILL RELAY TO PM RN, JOSEFINA
--- NOTE | 2021-11-16 19:30 | NUR ---
ASSESSMENT/ASSUMED CARE PT INTUBATED AND ON [facility] VENT. NO SEDATION AT THIS TIME. PT OPENS EYES TO VERBAL STIMULI BUT WILL NOT FOLLOW INSTRUCTIONS. MOVES FEET TO TOUCH AND MOVES UPPER EXT WHEN REPOSITIONED. LUNGS CLEAR BUT DECREASED IN THE BASES. VENT SETTINGS AC/VC 14/400/5/30%. SUCTIONED THIN CLEAR SECRECTONS ORALLY. SUCTIONED BLOODLY SECRECTIONS VIS ET TUBE. ORAL CARE DONE. HEART RATE REGULAR- BIGEMINY IN THE 80-90'S. BP STABLE. BT+ HYPOACTIVE. OG WITH TUBE FEED GLUCERNIA AT GOAL RATE 40 ML/HR, WATER 30 ML Q4HR. ABD SOFT TO PALP. PICC LINE TO RIGHT UPPER ARM LEAKING. DRSG CHANGED. PICC OUT 9 CM. LOPEZ CATH PATENT DRAINING CLEAR YELLOW URINE. FLEXI SEAL LEAKING AROUND TUBE. CARLEY CARE AND CATH CARE DONE. DRY FLOW CHANGED UNDER PT AND PT REPOSITIONED. BILAT SOFT WRIST RESTRAINTS ON.
--- NOTE | 2021-11-16 21:17 | NUR ---
CALL TO MD CALL TO DR CHRISTINA REGARDING SEDATION AND PT BREATH STACKING. ORDER TO RESUME PROPOFOL ON A LOW DOSE RECEIVED.
--- NOTE | 2021-11-16 22:34 | NUR ---
SEDATION RESTARTED PROPOFOL FOR SEDATION AT 10 MCQ/KG/MIN VIA PICC
[2021-11-17 03:48] LABS: BASOPHILS ABSOLUTE AUTO 0.03 K/mm3 (0.00-0.23); BASOPHILS PERCENT AUTO 0 % (0-2); EOSINOPHILS ABSOLUTE AUTO 0.48 K/mm3 (0.00-0.68); EOSINOPHILS PERCENT AUTO 5 % (0-6); Hematocrit 29.7 % (33.0-51.0); IMMATURE GRAN ABSOLUTE AUTO 0.05 K/mm3 (0.00-0.10); IMMATURE GRAN PERCENT AUTO 1 % (0-1); LYMPHOCYTES ABSOLUTE AUTO 1.81 K/mm3 (0.84-5.20); LYMPHOCYTES PERCENT AUTO 18 % (21-46); MONOCYTES ABSOLUTE AUTO 1.47 K/mm3 (0.16-1.47); MONOCYTES PERCENT AUTO 14 % (4-13); Mean Corpuscular HGB 32.5 pg (26.0-34.0); Mean Corpuscular HGB Conc 33.7 g/dL (31.5-36.5); Mean Corpuscular Volume 96 fL (80-100); Mean Platelet Volume 9.8 fL (9.1-12.4); NEUTROPHILS ABSOLUTE AUTO 6.35 K/mm3 (1.96-9.15); NEUTROPHILS PERCENT AUTO 62 % (41-73); Platelet Count 152 K/mm3 (150-400); RDW Coefficient Variation 12.5 % (11.7-14.2); RDW Standard Deviation 44.5 fL (35.1-46.3); Red Blood Cell Count 3.08 M/mm3 (3.80-5.20); White Blood Cell Count 10.19 K/mm3 (4.00-11.30)
[2021-11-17 04:12] LABS: Bun/Creatinine Ratio 32.7 (12.0-20.0); Calcium, Blood 8.7 mg/dL (8.5-10.1); Creatinine, Blood 1.04 mg/dL (0.40-1.00); Potassium, Blood 4.4 mmol/L (3.5-5.5)
--- NOTE | 2021-11-17 06:03 | NUR ---
SHIFT SUMMARY PT CONT ON THE VENT DURING THE NIGHT. INCREASED FIO2 TO 40% DUE TO SPO2 DOWN IN THE 80'S. SUCTIONED LESS FROM THE ETT DURING THE NIGHT. STARTED WITH BLOODY OF THE MORNING CLEAR (NO BLOOD SEEN). DECREASED ORAL SECRECTIONS NOTED DURING THE NIGHT. PT STARTED ON LOW DOSE PROPOFOL FOR SEDATION DUE TO BREATH STACKING AND AGITATION. BILAT SOFT WRIST RESTRAINTS ON. PT TURNED Q2HRS. PICC DRSG CHANGED DUE TO LEAKING AROUND SITE. PICC OUT 9 CM. AT THIS TIME DRSG CD&I. HEART RATE REGULAR AT THIS TIME, BUT DURING THE NIGHT HAVE SEEN BIGEMINY AND TRIGEMINY. OG WITH TUBE FEED AT GOAL RATE. FLEXI SEAL DRAINING LIQUID STOOL. REPORT TO ON COMING NURSE
--- NOTE | 2021-11-17 07:01 | NUR ---
TOOK OVER CARE OF PT AT 0700, PT VENTED ON AC/VC 14/400/40%/P5 WITH PROPOFOL AT 10. RASS +1.
--- NOTE | 2021-11-17 09:22 | NUR ---
DR. KUMARI AT [facility], PROPOFOL STOPPED, TF HELD, VENT SETTINGS CHANGED TO PS 30% P5
[2021-11-17 10:36] LABS: Vancomycin, Trough 19.1 ug/mL (5.0-10.0)
--- NOTE | 2021-11-17 11:06 | NUR ---
PT EXTUBATED AND PLACED ON 5L NASAL CANNULA WITH CO2 MONITORING
--- NOTE | 2021-11-17 11:38 | NUR ---
SPOKE WITH [facility] NURSE TO OBTAIN PT'S BASELINE NEURO STATUS. STATED PT HAD INCREASING SOMNOLENCE THEN IT WAS ORDERED TO STOP HER PSYCHOTROPIC MEDS BY TO DETERMINE IF THAT WAS THE CAUSE OF SOMNOLENCE. NURSE ALSO STATED THAT PT WAS RECENTLY ADMITTED A FEW MONTHS AGO FOR RESPIRATORY FAILURE AND HYPOXIA AND THAT HER PSYCH MEDS HAD BEEN INCREASED AT THAT TIME.
--- NOTE | 2021-11-17 17:05 | NUR ---
SUMMARY PT ON 3L NC NEURO; PT FOLLOWS COMMANDS INTERMITTENTLY, VERY WEAK BUE. NONVERBAL AT BASELINE, SOMNOLENT. HX DEMENTIA AND SCHIZOPHRENIA. LUNGS: 3LNC, RHONCHI THROUGHOUT, INTERMITTENT NT SUCTIONING, INTERMITTENT SHORT APNEIC EPISODES. CARDIAC: 1*HB, HR 55-80. SKIN: SCATTERED BRUISING, SEE SKIN ASSESSMENTS GI/; LOPEZ AND FMS IN PLACE, CLEAR YELLOW URINE, LOOSE BROWN BM
--- NOTE | 2021-11-17 19:10 | NUR ---
ASSUMPTION OF CARE PT SLEEPING, OPENS EYES TO VERBAL STIMULI. SHE MAKES EYE CONTACT AND TRACKS MOVEMENTS. SHE DOES NOT SQUEEZE HANDS TO COMMAND BUT DOES WIGGLE TOES. SHE DOES NOT MAKE ANY VERBAL SOUNDS OR NOD/SHAKE HEAD TO ANSWER QUESTIONS. SHE IS ON NS TKO. LOPEZ PATENT AND DRAINING LIGHT YELLOW URINE. RECTAL TUBE IN PLACE WITH LIGHT BROWN LIQUID STOOL. SHE IS ON 2L NC. VSS AT THIS TIME. SEE SHIFT ASSESSMENT.
[2021-11-18 03:53] LABS: BASOPHILS ABSOLUTE AUTO 0.05 K/mm3 (0.00-0.23); BASOPHILS PERCENT AUTO 1 % (0-2); EOSINOPHILS ABSOLUTE AUTO 0.64 K/mm3 (0.00-0.68); EOSINOPHILS PERCENT AUTO 6 % (0-6); Hematocrit 30.6 % (33.0-51.0); IMMATURE GRAN ABSOLUTE AUTO 0.09 K/mm3 (0.00-0.10); IMMATURE GRAN PERCENT AUTO 1 % (0-1); LYMPHOCYTES ABSOLUTE AUTO 2.22 K/mm3 (0.84-5.20); LYMPHOCYTES PERCENT AUTO 21 % (21-46); MONOCYTES ABSOLUTE AUTO 1.63 K/mm3 (0.16-1.47); MONOCYTES PERCENT AUTO 15 % (4-13); Mean Corpuscular HGB 32.3 pg (26.0-34.0); Mean Corpuscular HGB Conc 32.7 g/dL (31.5-36.5); Mean Corpuscular Volume 99 fL (80-100); Mean Platelet Volume 9.1 fL (9.1-12.4); NEUTROPHILS ABSOLUTE AUTO 5.95 K/mm3 (1.96-9.15); NEUTROPHILS PERCENT AUTO 56 % (41-73); Platelet Count 186 K/mm3 (150-400); RDW Coefficient Variation 12.3 % (11.7-14.2); RDW Standard Deviation 44.5 fL (35.1-46.3); White Blood Cell Count 10.58 K/mm3 (4.00-11.30)
[2021-11-18 04:09] LABS: Anion Gap 1 mmol/L (6-16); Blood Urea Nitrogen 25 mg/dL (8-24); Bun/Creatinine Ratio 28.6 (12.0-20.0); CO2, Blood 32 mmol/L (21-32); Calcium, Blood 8.8 mg/dL (8.5-10.1); Chloride, Blood 112 mmol/L (98-108); Creatinine, Blood 0.87 mg/dL (0.40-1.00); Glomerular Filtration Rate >60 (60-); Glucose, Blood 110 mg/dL (70-99); Magnesium, Blood 2.4 mg/dL (1.6-2.4); Phosphorus, Blood 3.5 mg/dL (2.5-4.9); Sodium, Blood 145 mmol/L (136-145)
--- NOTE | 2021-11-18 05:17 | NUR ---
SHIFT SUMMARY SHE WAKENS EASILY TO VERBAL STIMULI, MAKES EYE CONTACT, TRACKS MOVEMENTS, OCCASIONALLY NODS TO ANSWER QUESTIONS, AND FOLLOWS SIMPLE COMMANDS. SHE HAS BEEN ON 2-5L NC THROUGHOUT NIGHT. SHE HAS A WEAK AND PRODUCTIVE COUGH AND HAS REQUIRED FREQUENT ORAL SUCTIONING. SHE REMAINS NPO DUE TO ASPIRATION RISK. BOWEL TONES HYPOACTIVE WITH ZERO RECTAL TUBE OUPUT IN 24HRS. RECTAL TUBE REMOVED. LOPEZ PATENT AND DRAINING PALE YELLOW URINE WITH SHIFT OUPUT 950ML. PICC REMAINS IN LAUREEN. VSS THROUGHOUT SHIFT. WILL REPORT TO ONCOMING RN.
--- NOTE | 2021-11-18 07:04 | NUR ---
TOOK OVER CARE OF PT AT 0700, PT RESTING ON 3L NC AND IV ON KVO
--- NOTE | 2021-11-18 07:51 | NUR ---
Pt desatting and not ventilating, pt woke up but did not take a breath, pt was then placed on non rebreather and stimulated until a breath was taken. Pt desatted into the 70's. currently satting at 94%, lung sounds were clear throughout. Respiratory and charge entry called to bedside. Dr.gosman zhou and pt to be placed on bipap for now.
--- NOTE | 2021-11-18 08:20 | NUR ---
PT PLACED BACK ON 4LNC
--- NOTE | 2021-11-18 13:32 | NUR ---
Received call from Pt's Primary RN Lyric and discussed case. Pt failed ST bedside swallow evaluation today. Pt mostly somnolent. Family may benefit from discussion regarding goals of care. Spoke with Dr Rowell and discussed case. Family would benefit from supportive conversations at this time. Pt resting in bed with her eyes closed. Pt opens her eyes to verbal stimuli but is non verbal. Significantly weak cough noted. Spoke with product specialist Roby and discussed case. Attempted to call Pt's son Francois. Left message with request for a return phone call. Palliative Care will F/U with family for udates and supportive conversations.
--- NOTE | 2021-11-18 19:10 | NUR ---
ASSUMPTION OF CARE PT LYING IN BED WITH EYES CLOSED, OPENS EYES TO VERBAL STIMULI, MAKES EYE CONTACT AND SMILES. SHE MAKES A COUPLE SMALL INCOMPREHENSIBLE SOUNDS. SHE IS ON 3L NC WITH SPO2 >95%. SHE IS RECEIVING NS TKO. LOPEZ PATENT AND DRAINING PALE YELLOW URINE. VSS AT THIS TIME, SEE SHIFT ASSESSMENT.
--- NOTE | 2021-11-19 03:30 | NUR ---
UPDATE PT IS ON AUTO CPAP 5-20 WITH 5L. SHE DESATURATED TO MID 60S WHILE SLEEPING AND ONCE AWAKENED INCREASED UP TO 90S. SHE DESATURATED TO MID 80S A FEW MORE TIMES WITHIN THE NEXT COUPLE MINUTES DUE TO APNEIC PERIODS. SHE APPEARED MORE SOMNOLENT, UNABLE TO KEEP EYES OPEN MORE THAN A FEW SECONDS. SHE WAS SLOW TO RESPOND AND VERY WEAKLY SQUEEZED HANDS BUT WOULD NOT WIGGLE TOES. SHE WAS NOT NODDING/SHAKING HEAD TO ANSWER QUESTIONS. RT AT BEDSIDE TO REVIEW CPAP SETTINGS. HOSPITALIST NOTIFIED AND RECEIVED ORDERS FOR AM LABS AND ABG. APPROXIMATELY 30MIN LATER DURING CARE, PT APPEARS MORE ALERT. WIDE OPEN EYES, MAKING EYE CONTACT, NODDING/SHAKING HEAD TO ANSWER QUESTIONS.
[2021-11-19 04:10] LABS: BASOPHILS ABSOLUTE AUTO 0.05 K/mm3 (0.00-0.23); BASOPHILS PERCENT AUTO 1 % (0-2); EOSINOPHILS ABSOLUTE AUTO 0.58 K/mm3 (0.00-0.68); EOSINOPHILS PERCENT AUTO 6 % (0-6); Hematocrit 31.7 % (33.0-51.0); Hemoglobin 10.3 g/dL (11.5-16.0); IMMATURE GRAN ABSOLUTE AUTO 0.07 K/mm3 (0.00-0.10); IMMATURE GRAN PERCENT AUTO 1 % (0-1); LYMPHOCYTES ABSOLUTE AUTO 1.51 K/mm3 (0.84-5.20); LYMPHOCYTES PERCENT AUTO 15 % (21-46); MONOCYTES ABSOLUTE AUTO 1.77 K/mm3 (0.16-1.47); MONOCYTES PERCENT AUTO 17 % (4-13); Mean Corpuscular HGB 32.3 pg (26.0-34.0); Mean Corpuscular HGB Conc 32.5 g/dL (31.5-36.5); Mean Corpuscular Volume 99 fL (80-100); Mean Platelet Volume 9.1 fL (9.1-12.4); NEUTROPHILS ABSOLUTE AUTO 6.24 K/mm3 (1.96-9.15); NEUTROPHILS PERCENT AUTO 61 % (41-73); Platelet Count 219 K/mm3 (150-400); RDW Coefficient Variation 12.1 % (11.7-14.2); Red Blood Cell Count 3.19 M/mm3 (3.80-5.20); White Blood Cell Count 10.22 K/mm3 (4.00-11.30)
[2021-11-19 04:14] LABS: PCO2 Arterial 59.6 mmHg (35-45); PO2 Arterial 74.1 mmHg (80-100); pH Blood Arterial 7.35 (7.35-7.45)
[2021-11-19 04:27] LABS: Alanine Aminotransfer (ALT/SGP 23 U/L (12-78); Albumin, Blood 1.9 g/dL (3.4-5.0); Albumin/Globulin Ratio 0.5 (0.8-1.8); Alk Phos 139 U/L (50-136); Anion Gap 2 mmol/L (6-16); Aspartate Aminotrans (AST/SGOT 21 U/L (12-37); Bilirubin, Total 0.4 mg/dL (0.1-1.0); Blood Urea Nitrogen 23 mg/dL (8-24); Bun/Creatinine Ratio 29.3 (12.0-20.0); CO2, Blood 33 mmol/L (21-32); Calcium, Blood 9.4 mg/dL (8.5-10.1); Chloride, Blood 111 mmol/L (98-108); Creatinine, Blood 0.79 mg/dL (0.40-1.00); Globulin, Blood 3.8 g/dL (2.2-4.0); Glomerular Filtration Rate >60 (60-); Glucose, Blood 103 mg/dL (70-99); Potassium, Blood 4.2 mmol/L (3.5-5.5); Sodium, Blood 146 mmol/L (136-145); Total Protein, Blood 5.7 g/dL (6.4-8.2)
--- NOTE | 2021-11-19 05:39 | NUR ---
SHIFT SUMMARY PT RECEIVING NS TKO. SHE IS ON AUTO CPAP 5-20 WITH 8L. SHE HAD 1 MORE EPISODE OF APNEA SINCE PREVIOUS NOTE, SPO2 DECREASED TO MID 80S AND O2 WAS INCREASED. SHE WAKES TO VERBAL STIMULI AND FOLLOWS SIMPLE COMMANDS. LOPEZ PATENT AND DRAINING TO GRAVITY WITH SHIFT OUTPUT OF 500ML. WILL REPORT TO ONCOMING RN.
--- NOTE | 2021-11-19 07:16 | NUR ---
PT RESTING ON CPAP, IV AT KVO.
--- NOTE | 2021-11-19 11:45 | NUR ---
Case Conference Note Spoke with Dr Rowell, Dr Rodriguez, and Primary RN Lyric. Discussed case and reviewed plan of care. Dobhoff will be considered for nutrition. Pt's family may benefit from goals of care discussion including Pt's wishes for code status. Attempted to call Pt's son again. Left another message with request for a return phone call. Called and spoke with staff at [facility]. No other contact numbers for son other than the one on file. Pt has same POLST on file at [facility] showing Pt's wishes for CPR and Full Treatment. Palliative Care will remain available.
--- NOTE | 2021-11-19 15:51 | NUR ---
Case Conference Note Received return phone call from Pt's son Francois. Provided update on plan of care including failed bedside swallow evaluation. Offered therapetuic listening as Francois reports seeing a steady decline in Pt's health and mentation over the last year. Discussed current code status, educated on life sustaining treatments including risk factors and implications of CPR and Intubation. Francois reports if Pt would not want heroic measures including CPR and Intubation in her current health state. Discussed plan for dobhoff to provide nutrition in hopes of improvement. Francois reports being in agreement with temporary nutrition via dobhoff. He reports plan to visit Pt tomorrow and will plan to complete a new POLST for Pt. He reports his other siblings have not been involved in Pt's life for quite sometime and has been her primary decision maker lately. No other concerns reported at this time. Spoke with Dr Rowell, relayed conversation and wishes for Pt to be DNR. Placed DNR order in [facility] per V/O from Dr Rowell. Plan: Assist rocky Parrish with completing new POLST when he arrives to visit. Palliative Care will remain available for supportive and therapeutic visits.
--- NOTE | 2021-11-19 16:28 | NUR ---
SUMMARY PT RESTING ON 3L NC, USED CPAP INTERMITENTLY THROUGHOUT DAY DURING APNEIC PERIODS. NEURO: PT STILL SLEEPY AND HAS SLEPT MOST OF THE DAY BUT HAS ANSWERED SOME YES OR NO QUESTIONS, FOLLOWS COMMANDS BUT STILL HAS VERY WEAK BUE HAND GRASP. SEEMS TO BE MORE INTERACTIVE WITH STAFF THAN PREVIOUS DAYS WHEN AWAKE. LUNGS: CLEAR BILAT UPPER LOBES, DIMINISHED BASES, FREQUENT SECRETIONS SUCTIONING STILL NEEDED THROUGHOUT THE DAY. ; LOPEZ IN PLACE DRAINING CLEAR YELLOW URINE GI; NG PLACED, VERIFIED AND GLUCERNA TF STARTED AT 1430 AT 25ML/HR. NO BM THIS SHIFT. SKIN: BRUISING IMPROVING, LARGE CHEST BRUISE IS TURNING YELLOW, SLIGHT REDNESS AROUND RIGHT HAND SKIN TEAR. CARDIAC; PROLONGED AR INTERVAL, PERIODS OF BRADYCARIA AND HYPERTENSION- SEE VITAL, BUE EDEMA +2, TRACE BLE.
--- NOTE | 2021-11-19 19:15 | NUR ---
ASSUMPTION OF CARE PT LYING IN BED WATCHING TV. SHE MAKES EYE CONTACT, FOLLOWS CONVERSATION AND ANSWERS QUESTIONS BY SAYING YES/NO OR NODDING. IF QUESTIONS REQUIRE MORE THAN 1 WORD RESPONSES, SHE HAS MOSTLY INCOMPREHENSIBLE SPEECH. SHE FOLLOWS COMMANDS INCLUDING SQUEEZING HANDS AND WIGGLING TOES. SHE IS ON 3L NC WITH SPO2 >95%. GLUCERNA TF INFUSING AT 35ML/HR AND WILL BE INCREASED LATER IN THE SHIFT. LOPEZ PATENT AND DRAINING CLEAR YELLOW URINE TO GRAVITY. VSS AT THIS TIME. SEE SHIFT ASSESSMENT.
--- NOTE | 2021-11-19 23:33 | NUR ---
UPDATE PT IS MORE ALERT THAN PREVIOUSLY IN SHIFT. SHE IS NOW SPEAKING IN SHORT SENTENCES THAT ARE COMPREHENSIBLE. SHE FOLLOWS CONVERSATION AND ANSWERS APPROPRIATELY. MORE MOVEMENT NOTED IN EXTREMITIES AND SHE CONTINUES TO FOLLOW COMMANDS.
[2021-11-20 05:19] LABS: Albumin, Blood 1.9 g/dL (3.4-5.0); Anion Gap 2 mmol/L (6-16); Blood Urea Nitrogen 23 mg/dL (8-24); Bun/Creatinine Ratio 29.1 (12.0-20.0); CO2, Blood 36 mmol/L (21-32); Calcium, Blood 9.3 mg/dL (8.5-10.1); Chloride, Blood 108 mmol/L (98-108); Creatinine, Blood 0.79 mg/dL (0.40-1.00); Glomerular Filtration Rate >60 (60-); Glucose, Blood 200 mg/dL (70-99); Phosphorus, Blood 1.9 mg/dL (2.5-4.9); Potassium, Blood 3.9 mmol/L (3.5-5.5); Sodium, Blood 146 mmol/L (136-145)
--- NOTE | 2021-11-20 05:38 | NUR ---
SHIFT SUMMARY PT SLEPT FOR MOST OF NIGHT. SHE IS MORE ALERT, CONTINUES TO SAY SHORT PHRASES AND FOLLOW SIMPLE COMMANDS. SHE HAS BEEN ON 3L NC WITH SPO2 >93%. TUBE FEEDING INFUSING VIA NGT AT 45ML/HR WITH 30ML FLUSHES Q4. TUBE FEEDING TO BE INCREASED AT APPROX 1000. LOPEZ PATENT AND DRAINING TO GRAVITY. VSS THROUGHOUT SHIFT. WILL REPORT TO ONCOMING RN.
--- NOTE | 2021-11-20 09:16 | NUR ---
DR KUMARI ROUNDED ON PATIENT, POSSIBLE STATUS CHANGE IF DR LEE AGREES PER DR KUMARI, NO NEW CHANGES, PATIENT SAYING WHOLE SENTENCES, STILL HAS VERY MUMMBLED SPEECH AT TIME AND IS UNABLE TO BE UNDERSTOOD. BED ALARM ON
--- NOTE | 2021-11-20 10:05 | NUR ---
DR LEE ROUNDED, CLARIFIED YES OR NO FOR A PEG TUBE PLACEMENT, DR WATTS SAID NO, PATIENT TO POSSIBLEY BE DOWN GRADED AND TRASITION TO COMFORT CARE PER DR LEE, PALLIATIVE CARE CONSULT ALREADY ORDERED, BED ALARM ON, WCTM
--- NOTE | 2021-11-20 14:40 | NUR ---
PATIENTS SON AND CASE MANAGEMENT IN ROOM WORKING ON A POLST FORM
--- NOTE | 2021-11-20 17:57 | NUR ---
MORE ALERT TODAY, CLEAR WORDS AND VERY MUMBLED NONE RECOGNIZABLE WORDS ALSO, ORIENTED TO SELF AND SON, FOLLOWS DIRECTIONS, EYES OPEN SPONTANOUS, TRACKS WITH EYES IN ROOM. LS CLEAR DIMISHED, 3.5 L O2 VIA NC SATS 90-96%. SR 70-100, MULTIPLE PVCS. LIQUID STOLLS X2, NG TF AT GOAL 60 ML/HR, ST ADVANCED DIET TO PUREE, MEDS CRUSHED WITH APPLE SAUCE, NG TF AND PLACEMENT TO BE RE-EVALED TOMORROW, CONTINUE FEEDS FOR NOW, 1:1 FEEDER, PATIENT NEEDS COMPLETE DIRECTIONS. LOPEZ TO GRAVITY, DNR SIGNED BY SON TODAY, PCU STATUS, WILL RELAY TO PM RN, JOSEFINA
--- NOTE | 2021-11-20 19:15 | NUR ---
ASSUMPTION OF CARE PT AWAKE LYING IN BED. SHE HAS A PLEASANT AFFECT, PARTICIPATES IN CONVERSATION. SENTENCES AND PHRASES ARE SHORT, OCCASIONALLY DIFFICULT TO UNDERSTAND. SHE TALKS ABOUT HER SON VISITING EARLIER IN THE DAY. SHE CONTINUES TO RECEIVE TUBE FEEDING AT GOAL RATE VIA NGT, POSSIBLY DISCONTINUE TOMORROW. LOPEZ PATENT AND DRAINING TO GRAVITY. SEE SHIFT ASSESSMENT.
--- NOTE | 2021-11-21 04:17 | NUR ---
TRANSFER TO PCU REPORT GIVEN TO BIRGIT SAUER AND TRANSFERRED TO PCU AT THIS TIME. PT SOMNOLENT BUT WAKENS TO VERBAL STIMULI. TUBE FEEDING INFUSING AT GOAL RATE VIA NGT. LOPEZ PATENT AND DRAINING TO GRAVITY.
[2021-11-21 08:55] LABS: Hematocrit 34.4 % (33.0-51.0); Mean Corpuscular HGB 31.9 pg (26.0-34.0); Mean Corpuscular Volume 100 fL (80-100); Mean Platelet Volume 8.7 fL (9.1-12.4); Platelet Count 288 K/mm3 (150-400); RDW Coefficient Variation 12.1 % (11.7-14.2); RDW Standard Deviation 43.9 fL (35.1-46.3); Red Blood Cell Count 3.45 M/mm3 (3.80-5.20); White Blood Cell Count 8.55 K/mm3 (4.00-11.30)
[2021-11-21 09:13] LABS: Albumin, Blood 2.1 g/dL (3.4-5.0); Anion Gap 1 mmol/L (6-16); Blood Urea Nitrogen 29 mg/dL (8-24); CO2, Blood 34 mmol/L (21-32); Calcium, Blood 9.4 mg/dL (8.5-10.1); Chloride, Blood 107 mmol/L (98-108); Creatinine, Blood 0.88 mg/dL (0.40-1.00); Glomerular Filtration Rate >60 (60-); Glucose, Blood 186 mg/dL (70-99); Phosphorus, Blood 2.7 mg/dL (2.5-4.9); Potassium, Blood 4.3 mmol/L (3.5-5.5); Sodium, Blood 142 mmol/L (136-145)
--- NOTE | 2021-11-21 15:27 | NUR ---
SHIFT SUMMARY/TRANSFER Pt opens her eyes to her name most of the time. The rest of the time she sleeps through care. This morning she was awake enough to take her meds with applesauce and take a few bites of food with the speech therapist but then she fell right back to sleep. She does not participate in her care at all. She has a bruise on her forehead and some scattered bruising related to her fall before admission.Her NG tube and tube feeding were dcd this morning as she is able to eat a pureed diet when awake. Her swift was also dcd and she has been inc of B/B. She has been changed to medical status and report has been given to the receiving nurse. Her personal items have been packed and she will be transferred upstairs.
--- NOTE | 2021-11-21 16:51 | NUR ---
SHIFT SUMMARY PATIENT IS ALERT AND ORIENTED TO SELF. PATIENT IS A TRANSFER FROM PCU. PATIENT HAS BEEN SLEEPING SINCE SHE TRANSFERED. PATIENT IS AWAKED BY CALLING PATIENTS NAME. PATIENT HAS TRANSITIONED TO PUREED DIET. PATIENT ON 2LITER NC. PATIENT HAS NO COMPLAINTS OF SOB, NAUSEA, PAIN, VOMITTING. BED IN LOCKED AND LOWEST POSITION. CALL LIGHT IN PLACE. WILL MONITOR UNTIL SHIFT CHANGE.
[2021-11-22 03:12] LABS: Source, Urine Foley catheter
[2021-11-22 03:20] LABS: Bilirubin, Urine Neg (Neg); Blood, Urine 2+ (Neg); Glucose Qualitative, Urine Neg (Neg); Ketones, Urine Neg (Neg); Leukocyte Esterase, Urine Neg (Neg); Nitrite, Urine Neg (Neg); Protein, Urine 2+ (Neg); Urobilinogen, Urine NORM (Normal)
[2021-11-22 03:28] LABS: Amorphous Light (0-Heavy); Appearance, Urine Clear (Clear); Bacteria Not Seen /hpf; Color, Urine Yellow (P-Yellow); Red Blood Cells, Urine 0-2 /hpf (0-2); Squamous Epithelial Cells Not Seen /hpf (Few); White Blood Cells, Urine Rare /hpf (0-5)
--- NOTE | 2021-11-22 04:27 | NUR ---
SUMMARY PT FOUND TO BE RETAINING URINE. BLADDER SCAN SHOWED [address] WOODARD WAS CALLED AND ORDERED LOPEZ PLACEMENT. PT IS VERY SOMNOLENT DIFFICULT TO AROUSE AT TIMES. PT IS BREATHING EASY VIA O2 NC. RT HELD CPAP DUE TO PT BEING LETHARGIC AND SOMNOLENT. PT SPO2 HAS BEEN >92%. PT UNABLE TO TAKE PM MEDS DUE TO INCREASED ASPIRATION RISK. PT HAS BEEN RESPONDING TO NAME AND ONLY ANSWERING YES OR NO. PT CURRENTLY SLEEPING IN NO DISTRESS. BED ALARM ON AND CALLIGHT IN REACH.
[2021-11-22] MEDS ORDERED: TRAZ50 PO (05:14)
[2021-11-22] MEDS ORDERED: TRAZ100 PO (05:15)
[2021-11-22] MEDS ORDERED: SYNTHROID50 MC1 PO (05:16)
[2021-11-22] MEDS ORDERED: DIVA125 PO (05:24)
[2021-11-22] MEDS ORDERED: QUETIAPINE FUM PO (05:28)
[2021-11-22] MEDS ORDERED: LOSARTAN POTASS25 M2 PO (05:32)
[2021-11-22 08:22] LABS: Hematocrit 29.7 % (33.0-51.0); Hemoglobin 9.4 g/dL (11.5-16.0); Mean Corpuscular HGB Conc 31.6 g/dL (31.5-36.5); Mean Corpuscular Volume 101 fL (80-100); Mean Platelet Volume 8.6 fL (9.1-12.4); Platelet Count 262 K/mm3 (150-400); RDW Coefficient Variation 11.9 % (11.7-14.2); RDW Standard Deviation 43.8 fL (35.1-46.3); Red Blood Cell Count 2.94 M/mm3 (3.80-5.20); White Blood Cell Count 7.45 K/mm3 (4.00-11.30)
[2021-11-22 08:35] LABS: Albumin, Blood 2.1 g/dL (3.4-5.0); Anion Gap 1 mmol/L (6-16); Blood Urea Nitrogen 23 mg/dL (8-24); Bun/Creatinine Ratio 30.7 (12.0-20.0); CO2, Blood 34 mmol/L (21-32); Calcium, Blood 9.2 mg/dL (8.5-10.1); Chloride, Blood 110 mmol/L (98-108); Creatinine, Blood 0.75 mg/dL (0.40-1.00); Glomerular Filtration Rate >60 (60-); Glucose, Blood 114 mg/dL (70-99); Phosphorus, Blood 2.7 mg/dL (2.5-4.9); Potassium, Blood 3.7 mmol/L (3.5-5.5); Sodium, Blood 145 mmol/L (136-145)
[2021-11-22 09:08] LABS: PCO2 Arterial 59.3 mmHg (35-45); PO2 Arterial 78.3 mmHg (80-100); pH Blood Arterial 7.39 (7.35-7.45)
--- NOTE | 2021-11-22 16:40 | NUR ---
SHIFT SUMMARY PATIENT HAS BEEN RESTING COMFORTABLY MOST OF SHIFT WITH Q2 TURNS. PATIENT HAS A LOPEZ AND IS DRAINING TO GRAVITY. PATIENT IS EASILY AWOKEN BY AUDIORY CALLS BY PATIENTS NAME. PATIENT HAS BEEN MORE ALERT AND HAS ATE BETTER FOR LUNCH. PATIENT HAS HAD NO ACUTE EVENTS THIS SHIFT. VITAL SIGNS REVIEWED. BED IN LOCKED AND LOWEST POSITION. CALL LIGHT IN PLACE. WILL MONITOR UNTIL SHIFT CHANGE.
--- NOTE | 2021-11-23 03:57 | NUR ---
SHIFT SUMMARY: PT IS ALERT AND CONFUSED. PT IS A MAX ASSIST, NOT OUT OF BED OVERNIGHT. TURNS Q2H. PT ON 2 L O2 KEEPING SATS > 90%. PT DENIES PAIN, NAUSEA, VOMITING, AND SOB. LOPEZ PATENT AND DRAINING YELLOW URINE. PT SLEPT INTERMITTENTLY THROUGHOUT THE NIGHT. BED IN LOW POSITION CALL LIGHT WITHIN REACH. WILL REPORT TO DAY NURSE.
[2021-11-23] MEDS ORDERED: ANTIFUNGAL POWD71 GM TOP (11:50)
[2021-11-23] MEDS ORDERED: HUMALOG KW100 UNIT/1 SC (11:53)
--- NOTE | 2021-11-23 18:03 | NUR ---
SHIFT SUMMARY PATIENT IS ALERT AND ORIENTED TO SELF ONLY. PATIENT HAS HAD NO ACUTE EVENTS THIS SHIFT. VITAL SIGNS REVIEWED. BED IS LOCKED AND IS IN LOWEST POSITION. PATIENT WAS TRANSFERRED TO [facility] BY YENNI SUAREZ.
== END 2021-11-23 18:00 | disposition home or self-care (01) | DRG 207 ==
LOC: ER 04:04 → ICUW 04:05 → ICUE 04:05 → PCU 11-21 04:17 → MEDS 11-21 15:45
PROVIDERS: Internal Medicine; Internal Medicine Critical Care Medicine; Student in an Organized Health Care Education/Training Program; ADMIT Internal Medicine
PROC: 0BH18EZ Insertion of Endotracheal Airway into Trachea, Via Natural or Artificial Opening Endoscopic (ICD-10-PCS; principal; 2021-11-13)
PROC: 5A1955Z Respiratory Ventilation, Greater than 96 Consecutive Hours (ICD-10-PCS; 2021-11-13)
PROC: 00JU3ZZ Inspection of Spinal Canal, Percutaneous Approach (ICD-10-PCS; 2021-11-13)
PROC: 3E033XZ Introduction of Vasopressor into Peripheral Vein, Percutaneous Approach (ICD-10-PCS; 2021-11-13)
PROC: 02H633Z Insertion of Infusion Device into Right Atrium, Percutaneous Approach (ICD-10-PCS; 2021-11-13)
DX: J69.0 Pneumonitis due to inhalation of food and vomit (principal); G92.8 Other toxic encephalopathy; J96.02 Acute respiratory failure with hypercapnia; J96.21 Acute and chronic respiratory failure with hypoxia; I67.4 Hypertensive encephalopathy; N17.9 Acute kidney failure, unspecified; E87.2 Acidosis; E87.0 Hyperosmolality and hypernatremia; G40.909 Epilepsy, unspecified, not intractable, without status epilepticus; E78.5 Hyperlipidemia, unspecified; Z20.822 Contact with and (suspected) exposure to COVID-19; E03.9 Hypothyroidism, unspecified; E83.39 Other disorders of phosphorus metabolism; Z66 Do not resuscitate; G47.33 Obstructive sleep apnea (adult) (pediatric); E11.22 Type 2 diabetes mellitus with diabetic chronic kidney disease; I12.9 Hypertensive chronic kidney disease with stage 1 through stage 4 chronic kidney disease, or unspecified chronic kidney disease; N18.30 Chronic kidney disease, stage 3 unspecified; I27.20 Pulmonary hypertension, unspecified; R33.9 Retention of urine, unspecified; F32.A Depression, unspecified; F03.90 Unspecified dementia, unspecified severity, without behavioral disturbance, psychotic disturbance, mood disturbance, and anxiety; I25.10 Atherosclerotic heart disease of native coronary artery without angina pectoris; F25.9 Schizoaffective disorder, unspecified; Z96.641 Presence of right artificial hip joint; E87.6 Hypokalemia; E66.01 Morbid (severe) obesity due to excess calories; Z68.30 Body mass index [BMI] 30.0-30.9, adult; Z98.890 Other specified postprocedural states; Z86.73 Personal history of transient ischemic attack (TIA), and cerebral infarction without residual deficits; Z88.0 Allergy status to penicillin; Z79.02 Long term (current) use of antithrombotics/antiplatelets; Z79.4 Long term (current) use of insulin; Z79.82 Long term (current) use of aspirin; Z79.899 Other long term (current) drug therapy
CPT/HCPCS: 0241U; 31500; 31720; 36415; 36600; 51702; 70450; 71045; 80048; 80053; 80069; 80164; 80202; 81001; 82803; 82947; 83605; 83735; 84100; 84146; 84439; 84443; 84484; 85025; 85027; 87040; 87070; 87205; 92526; 92610; 93005; 93010; 94002; 94003; 94660; 94762; 96365; 96365-59; 96366; 96367; 96368; 96372; 96375; 96376; 99285-25; A9270; C1751; C1894; G0378; J0133; J0360; J1650; J1815; J1885; J1953; J1956; J2060; J2185; J2704; J3010; J3370; J3475; J3480; J7030; J7040; J7050; J7060; J7120

== ENCOUNTER → 2021-11-28 | Outpatient (CLI) | payer MEDICARE, OTHER ==
[~2021-11-28] MED LIST changes: +ANTIFUNGAL POWD71 GM TOP; +DIVA125 PO; +HUMALOG KW100 UNIT/1 SC; +LOSARTAN POTASS25 M2 PO; +QUETIAPINE FUM PO; +SYNTHROID50 MC1 PO; +TRAZ100 PO
[2021-11-28 12:09] LABS: Alanine Aminotransfer (ALT/SGP 31 U/L (12-78); Albumin, Blood 2.7 g/dL (3.4-5.0); Albumin/Globulin Ratio 0.7 (0.8-1.8); Alk Phos 141 U/L (50-136); Anion Gap 6 mmol/L (6-16); Aspartate Aminotrans (AST/SGOT 26 U/L (12-37); Bilirubin, Total 0.5 mg/dL (0.1-1.0); Blood Urea Nitrogen 33 mg/dL (8-24); Bun/Creatinine Ratio 35.5 (12.0-20.0); CO2, Blood 31 mmol/L (21-32); Calcium, Blood 8.9 mg/dL (8.5-10.1); Chloride, Blood 105 mmol/L (98-108); Creatinine, Blood 0.93 mg/dL (0.40-1.00); Globulin, Blood 3.7 g/dL (2.2-4.0); Glomerular Filtration Rate 59 (60-); Glucose, Blood 179 mg/dL (70-99); Sodium, Blood 142 mmol/L (136-145); Total Protein, Blood 6.4 g/dL (6.4-8.2); Valproic Acid 21.5 ug/mL (50.0-100.0)
[2021-11-28 12:14] LABS: BASOPHILS PERCENT AUTO 1 % (0-2); EOSINOPHILS ABSOLUTE AUTO 0.43 K/mm3 (0.00-0.68); EOSINOPHILS PERCENT AUTO 5 % (0-6); Hematocrit 33.4 % (33.0-51.0); IMMATURE GRAN ABSOLUTE AUTO 0.03 K/mm3 (0.00-0.10); IMMATURE GRAN PERCENT AUTO 0 % (0-1); LYMPHOCYTES ABSOLUTE AUTO 1.68 K/mm3 (0.84-5.20); LYMPHOCYTES PERCENT AUTO 19 % (21-46); MONOCYTES ABSOLUTE AUTO 0.68 K/mm3 (0.16-1.47); MONOCYTES PERCENT AUTO 8 % (4-13); Mean Corpuscular HGB 31.7 pg (26.0-34.0); Mean Corpuscular HGB Conc 32.9 g/dL (31.5-36.5); Mean Corpuscular Volume 96 fL (80-100); Mean Platelet Volume 9.6 fL (9.1-12.4); NEUTROPHILS ABSOLUTE AUTO 6.05 K/mm3 (1.96-9.15); NEUTROPHILS PERCENT AUTO 68 % (41-73); Platelet Count 253 K/mm3 (150-400); RDW Coefficient Variation 12.2 % (11.7-14.2); RDW Standard Deviation 43.2 fL (35.1-46.3); Red Blood Cell Count 3.47 M/mm3 (3.80-5.20); White Blood Cell Count 8.97 K/mm3 (4.00-11.30)
== END | disposition home or self-care (01) ==
LOC: LAB 10:48 → LAB SHORT 10:48
PROVIDERS: Psychiatry & Neurology Psychiatry
DX: Z51.81 Encounter for therapeutic drug level monitoring (principal); R13.10 Dysphagia, unspecified; Z79.899 Other long term (current) drug therapy
CPT/HCPCS: 80053; 80164; 85025

== ENCOUNTER → 2021-12-07 | Outpatient (CLI) | payer MEDICARE, OTHER | END | disposition home or self-care (01) | LOC: LAB 11:00 → LAB SHORT 11:00 | DX: E03.9 Hypothyroidism, unspecified (principal) | CPT/HCPCS: 84443 ==

== ENCOUNTER → 2021-12-18 | Outpatient (CLI) | payer MEDICARE, OTHER ==
[2021-12-18 18:46] LABS: Source, Urine Clean Catch
[2021-12-18 19:52] LABS: Appearance, Urine Clear (Clear); Bilirubin, Urine Neg (Neg); Blood, Urine Neg (Neg); Color, Urine Yellow (P-Yellow); Glucose Qualitative, Urine Neg (Neg); Ketones, Urine Neg (Neg); Leukocyte Esterase, Urine Neg (Neg); Nitrite, Urine Neg (Neg); Protein, Urine Neg (Neg); Urobilinogen, Urine NORM (Normal)
== END | disposition home or self-care (01) ==
LOC: LAB SHORT 11:50
PROVIDERS: Family Medicine
DX: N39.0 Urinary tract infection, site not specified (principal)
CPT/HCPCS: 81003

== ENCOUNTER → 2022-02-14 | Outpatient (CLI) | payer MEDICARE, OTHER | END | disposition home or self-care (01) | LOC: LAB SHORT 08:30 → LAB 08:30 | DX: E11.42 Type 2 diabetes mellitus with diabetic polyneuropathy (principal); E11.22 Type 2 diabetes mellitus with diabetic chronic kidney disease; Z79.4 Long term (current) use of insulin | CPT/HCPCS: 83036 ==

== ENCOUNTER 2022-05-05 13:17 | Emergency (ER) | payer MEDICARE, OTHER ==
[~2022-05-05] VITALS: Ht 172.7 cm; Wt 95.2 kg
[~2022-05-05 13:17] MED LIST changes: +ABILIFY MYCITE10 M2 PO; -ABILIFY MYCITE5 M1 PO; +INSULANI SC; -INSULANPEN SC; +Keppra750 MG PO; -LEVE500 PO; +LEVSOD75 PO; +LOSA50 PO; -LOSARTAN POTASS25 M2 PO; +NOVOLOG FL100 UNIT/3 SC; -SYNTHROID50 MC1 PO
[2022-05-05] MEDS ORDERED: Vitamin D1000 UNI1 PO (13:49)
[2022-05-05] MEDS ORDERED: HALOPERIDOL2 MG/1 M1 PO (13:52)
[2022-05-05 13:53] LABS: BASOPHILS ABSOLUTE AUTO 0.02 K/mm3 (0.00-0.23); BASOPHILS PERCENT AUTO 0 % (0-2); EOSINOPHILS ABSOLUTE AUTO 0.15 K/mm3 (0.00-0.68); EOSINOPHILS PERCENT AUTO 2 % (0-6); Hematocrit 33.5 % (33.0-51.0); Hemoglobin 11.6 g/dL (11.5-16.0); IMMATURE GRAN ABSOLUTE AUTO 0.02 K/mm3 (0.00-0.10); IMMATURE GRAN PERCENT AUTO 0 % (0-1); LYMPHOCYTES ABSOLUTE AUTO 1.79 K/mm3 (0.84-5.20); LYMPHOCYTES PERCENT AUTO 23 % (21-46); MONOCYTES ABSOLUTE AUTO 0.98 K/mm3 (0.16-1.47); MONOCYTES PERCENT AUTO 13 % (4-13); Mean Corpuscular HGB 32.4 pg (26.0-34.0); Mean Corpuscular HGB Conc 34.6 g/dL (31.5-36.5); Mean Corpuscular Volume 94 fL (80-100); Mean Platelet Volume 9.3 fL (9.1-12.4); NEUTROPHILS ABSOLUTE AUTO 4.86 K/mm3 (1.96-9.15); NEUTROPHILS PERCENT AUTO 62 % (41-73); Platelet Count 172 K/mm3 (150-400); RDW Coefficient Variation 12.3 % (11.7-14.2); RDW Standard Deviation 42.4 fL (35.1-46.3); Red Blood Cell Count 3.58 M/mm3 (3.80-5.20); White Blood Cell Count 7.82 K/mm3 (4.00-11.30)
[2022-05-05] MEDS ORDERED: QUET100 PO (13:58)
[2022-05-05] MEDS ORDERED: SERT100 PO (13:58)
[2022-05-05] MEDS ORDERED: ONDA4ODT MM (13:59)
[2022-05-05 14:08] LABS: Albumin, Blood 3.1 g/dL (3.4-5.0); Albumin/Globulin Ratio 0.8 (0.8-1.8); Bilirubin, Total 0.3 mg/dL (0.1-1.0); Bun/Creatinine Ratio 33.6 (12.0-20.0); Calcium, Blood 9.1 mg/dL (8.5-10.1); Creatinine, Blood 1.07 mg/dL (0.40-1.00); Globulin, Blood 3.7 g/dL (2.2-4.0); Potassium, Blood 3.9 mmol/L (3.5-5.5); Total Protein, Blood 6.8 g/dL (6.4-8.2)
[2022-05-05 14:15] LABS: Valproic Acid 44.3 ug/mL (50.0-100.0)
[2022-05-05 14:24] LABS: Source, Urine Voided
[2022-05-05 14:43] LABS: Appearance, Urine Clear (Clear); Bilirubin, Urine Neg (Neg); Blood, Urine 1+ (Neg); Color, Urine Yellow (P-Yellow); Glucose Qualitative, Urine 3+ (Neg); Ketones, Urine Neg (Neg); Leukocyte Esterase, Urine Neg (Neg); Nitrite, Urine Neg (Neg); Protein, Urine 1+ (Neg); Urobilinogen, Urine NORM (Normal)
[2022-05-05 16:20] LABS: Bacteria Few /hpf; Squamous Epithelial Cells Many /hpf (Few); Transitional Epithelial Cells Few /hpf (0-Rare); White Blood Cells, Urine 0-2 /hpf (0-5)
== END 2022-05-05 19:13 | disposition home or self-care (01) ==
LOC: ER 13:17
PROVIDERS: Emergency Medicine
DX: S09.90XA Unspecified injury of head, initial encounter (principal); S01.21XA Laceration without foreign body of nose, initial encounter; E11.22 Type 2 diabetes mellitus with diabetic chronic kidney disease; N18.9 Chronic kidney disease, unspecified; I25.10 Atherosclerotic heart disease of native coronary artery without angina pectoris; Z88.0 Allergy status to penicillin; Z79.899 Other long term (current) drug therapy; Z79.02 Long term (current) use of antithrombotics/antiplatelets; Z79.82 Long term (current) use of aspirin; Z79.4 Long term (current) use of insulin; W18.30XA Fall on same level, unspecified, initial encounter
CPT/HCPCS: 36415; 51701; 70450; 80053; 80164; 81001; 83690; 85025; 99285-25

== ENCOUNTER → 2022-05-10 | Outpatient (CLI) | payer MEDICARE, OTHER ==
[~2022-05-10] MED LIST changes: +HALOPERIDOL2 MG/1 M1 PO; +QUET100 PO; +SERT100 PO
[2022-05-10 18:29] LABS: Source, Urine Clean Catch
[2022-05-10 19:30] LABS: Appearance, Urine Hazy (Clear); Bilirubin, Urine Neg (Neg); Blood, Urine Neg (Neg); Color, Urine Yellow (P-Yellow); Glucose Qualitative, Urine Neg (Neg); Ketones, Urine Neg (Neg); Leukocyte Esterase, Urine Neg (Neg); Nitrite, Urine Neg (Neg); Protein, Urine Neg (Neg); Specific Gravity, Urine 1.015 (1.003-1.022); Urobilinogen, Urine NORM (Normal)
[2022-05-10 19:39] LABS: Bacteria Few /hpf; Red Blood Cells, Urine 0-2 /hpf (0-2); Squamous Epithelial Cells Many /hpf (Few); White Blood Cells, Urine 0-2 /hpf (0-5)
== END | disposition home or self-care (01) ==
LOC: LAB 08:15 → LAB SHORT 08:15
PROVIDERS: Family Medicine
DX: N39.0 Urinary tract infection, site not specified (principal)
CPT/HCPCS: 81001

== ENCOUNTER 2022-11-09 14:51 | Emergency (ER) | payer MEDICARE, OTHER ==
[~2022-11-09] VITALS: Ht 170.2 cm; Wt 122.5 kg
[2022-11-09 15:17] LABS: BASOPHILS ABSOLUTE AUTO 0.02 K/mm3 (0.00-0.23); BASOPHILS PERCENT AUTO 0 % (0-2); EOSINOPHILS ABSOLUTE AUTO 0.12 K/mm3 (0.00-0.68); EOSINOPHILS PERCENT AUTO 2 % (0-6); Hematocrit 33.1 % (33.0-51.0); Hemoglobin 11.2 g/dL (11.5-16.0); IMMATURE GRAN ABSOLUTE AUTO 0.04 K/mm3 (0.00-0.10); IMMATURE GRAN PERCENT AUTO 1 % (0-1); LYMPHOCYTES ABSOLUTE AUTO 1.21 K/mm3 (0.84-5.20); LYMPHOCYTES PERCENT AUTO 16 % (21-46); MONOCYTES ABSOLUTE AUTO 1.28 K/mm3 (0.16-1.47); MONOCYTES PERCENT AUTO 17 % (4-13); Mean Corpuscular HGB 32.6 pg (26.0-34.0); Mean Corpuscular HGB Conc 33.8 g/dL (31.5-36.5); Mean Corpuscular Volume 96 fL (80-100); Mean Platelet Volume 9.7 fL (9.1-12.4); NEUTROPHILS ABSOLUTE AUTO 4.84 K/mm3 (1.96-9.15); NEUTROPHILS PERCENT AUTO 65 % (41-73); Platelet Count 154 K/mm3 (150-400); RDW Coefficient Variation 12.1 % (11.7-14.2); RDW Standard Deviation 42.4 fL (35.1-46.3); Red Blood Cell Count 3.44 M/mm3 (3.80-5.20); White Blood Cell Count 7.51 K/mm3 (4.00-11.30)
[2022-11-09 15:24] LABS: Source, Urine Straight Cath
[2022-11-09 15:48] LABS: Appearance, Urine Clear (Clear); Bilirubin, Urine Neg (Neg); Blood, Urine Neg (Neg); Color, Urine Yellow (P-Yellow); Glucose Qualitative, Urine 4+ (Neg); Ketones, Urine Neg (Neg); Leukocyte Esterase, Urine Neg (Neg); Nitrite, Urine Neg (Neg); Protein, Urine 2+ (Neg); Specific Gravity, Urine 1.015 (1.003-1.022); Urobilinogen, Urine NORM (Normal); pH, Urine 6.5 (5.0-8.0)
[2022-11-09 15:58] LABS: Albumin, Blood 3.1 g/dL (3.4-5.0); Albumin/Globulin Ratio 0.9 (0.8-1.8); Bilirubin, Total 0.2 mg/dL (0.1-1.0); Bun/Creatinine Ratio 23.8 (12.0-20.0); Calcium, Blood 9.3 mg/dL (8.5-10.1); Creatinine, Blood 0.8 mg/dL (0.40-1.00); Globulin, Blood 3.6 g/dL (2.2-4.0); Potassium, Blood 3.9 mmol/L (3.5-5.5); Total Protein, Blood 6.7 g/dL (6.4-8.2)
[2022-11-09 16:01] LABS: Bacteria Rare /hpf; Red Blood Cells, Urine 0-2 /hpf (0-2); Squamous Epithelial Cells Rare /hpf (Few); White Blood Cells, Urine 0-2 /hpf (0-5)
[2022-11-09 16:43] LABS: Influenza A, PCR NEGATIVE (NEGATIVE); Influenza B, PCR NEGATIVE (NEGATIVE); Resp Syncytial Virus, PCR NEGATIVE (NEGATIVE); SARS-Cov-2 (COVID-19) PCR, MMC NEGATIVE (NEGATIVE)
[2022-11-09 18:45] VITALS: BP 180/75
== END 2022-11-09 19:13 | disposition home or self-care (01) ==
LOC: ER 14:51
PROVIDERS: Emergency Medicine; Physician Assistant
DX: J06.9 Acute upper respiratory infection, unspecified (principal); E11.65 Type 2 diabetes mellitus with hyperglycemia; E11.22 Type 2 diabetes mellitus with diabetic chronic kidney disease; N18.9 Chronic kidney disease, unspecified; I25.10 Atherosclerotic heart disease of native coronary artery without angina pectoris; Z79.899 Other long term (current) drug therapy; Z79.4 Long term (current) use of insulin; Z79.82 Long term (current) use of aspirin; Z20.822 Contact with and (suspected) exposure to COVID-19
CPT/HCPCS: 0241U; 71046; 80053; 81001; 83605; 85025; 93005; 93010; 96360; 99284-25; J7030

== ENCOUNTER 2022-12-09 05:01 | Inpatient (IN) | payer MEDICARE, OTHER ==
[~2022-12-09] VITALS: Ht 162.6 cm; Wt 100.6 kg
[2022-12-09] VITALS (18 sets, daily range): BP systolic 130–195; BP diastolic 61–152
[~2022-12-09 05:01] MED LIST changes: +CLIN150 PO
[2022-12-09 05:43] LABS: BASOPHILS ABSOLUTE AUTO 0.05 K/mm3 (0.00-0.23); BASOPHILS PERCENT AUTO 1 % (0-2); EOSINOPHILS ABSOLUTE AUTO 0.07 K/mm3 (0.00-0.68); EOSINOPHILS PERCENT AUTO 1 % (0-6); Hematocrit 33.1 % (33.0-51.0); Hemoglobin 10.4 g/dL (11.5-16.0); IMMATURE GRAN ABSOLUTE AUTO 0.14 K/mm3 (0.00-0.10); IMMATURE GRAN PERCENT AUTO 2 % (0-1); LYMPHOCYTES ABSOLUTE AUTO 1.56 K/mm3 (0.84-5.20); LYMPHOCYTES PERCENT AUTO 19 % (21-46); MONOCYTES ABSOLUTE AUTO 1.76 K/mm3 (0.16-1.47); MONOCYTES PERCENT AUTO 21 % (4-13); Mean Corpuscular HGB 32.3 pg (26.0-34.0); Mean Corpuscular HGB Conc 31.4 g/dL (31.5-36.5); Mean Corpuscular Volume 103 fL (80-100); Mean Platelet Volume 9.4 fL (9.1-12.4); NEUTROPHILS ABSOLUTE AUTO 4.66 K/mm3 (1.96-9.15); NEUTROPHILS PERCENT AUTO 57 % (41-73); Platelet Count 187 K/mm3 (150-400); RDW Standard Deviation 45.1 fL (35.1-46.3); Red Blood Cell Count 3.22 M/mm3 (3.80-5.20); White Blood Cell Count 8.24 K/mm3 (4.00-11.30)
[2022-12-09 06:01] LABS: Albumin, Blood 2.5 g/dL (3.4-5.0); Albumin/Globulin Ratio 0.5 (0.8-1.8); Bilirubin, Total 0.3 mg/dL (0.1-1.0); Bun/Creatinine Ratio 34.1 (12.0-20.0); Calcium, Blood 9.6 mg/dL (8.5-10.1); Creatinine, Blood 0.88 mg/dL (0.40-1.00); Globulin, Blood 4.6 g/dL (2.2-4.0); Potassium, Blood 4.3 mmol/L (3.5-5.5); Total Protein, Blood 7.1 g/dL (6.4-8.2)
[2022-12-09 06:05] LABS: Base Excess Venous 13.5 mmol/L; Bicarbonate Venous 35.1 mmol/L (24.0-30.0); PCO2 Venous 64 mmHg (38-42); pH Blood Venous 7.39 (7.34-7.37)
[2022-12-09 10:39] LABS: PCO2 Arterial 74.1 mmHg (35-45); PO2 Arterial 150 mmHg (80-100); pH Blood Arterial 7.33 (7.35-7.45)
--- NOTE | 2022-12-09 11:40 | NUR ---
UPDATE PT TO ROOM PCU 12 FROM ER. PT ON BIPAP AT 18/8 AND 40% FIO2. PT TITRATED UP BY RT D/T PT DESATTING UP TO 100% FIO2. NOTIFIED. ORDERS FOR ABG. CRITICAL CO2 OF 74.1. CALL OUT TO MD. RIBEIROSON, SON SIGNED POLST IN 2021, STATING DNR. SON CALLED BY THIS RN PT IS LISTED FULL CODE. PER SON (DRAKE) PT TO REMAIN FULL CODE AT THIS TIME. BP STABLE. HR STABLE. PT HAVING LIQUID LOOSE STOOLS. RECTAL TUBE PLACED. DEPENDS IN PLACE. WILL CONT TO MONITOR.
--- NOTE | 2022-12-09 14:09 | NUR ---
UPDATE HOSPITALIST AT BEDSIDE TO SEE PT EARLY AFTERNOON. PLAN FOR REPEAT ABG THIS AFTERNOON. PT UNABLE TO TOLERATE PO AT THIS TIME. ASPIRATION RISK AND UNABLE TO DIRECT. WILL UPDATE MD THAT PT IS UNABLE TO TAKE PO MEDS. PALLIATIVE CARE CONSULTED. CITLALY NOTIFIED NURSING STAFF PT IS BEDREST AT BASELINE. NEURO STATUS PT SPEAKS "WORD SALAD" PT A FEEDER WITH SOFT FOODS. WILL CONT TO MONITOR
--- NOTE | 2022-12-09 14:38 | NUR ---
Initial palliative care consult: Sepideh is a 77 year old lady with a history of dementia, chronic respiratory failure with home O2 at 2l/min, DM, CKD, CAD, schoizoaffective disorder, neuropathy, PAUL, PAH, seizures. She was admitted to [facility] on 12/09/22 with respiratory failure likely due to aspiration pneumonia. She lives at [facility]. Requested by nursing to assist with clarifying goals of care for Sepideh. Spoke with JOSE ANTONIO Frazier, at [facility]. Karin reports Sepideh uses a jerrell lift for transfers from bed to chair to wc to shower chair. She isn't able to bear weight on her legs and isn't able to sit unassisted. Sepideh must be fed by staff for meals. Sepideh speaks in word salad and isn't able to follow commands most of the time. She is incontinent of bowel and bladder. Occasionally Sepideh is able to assist staff with turning in bed but Karin reports this is inconsistent. Sepideh will fax Sepideh's medication list and recent H&P to the [facility] nurses desk. Spoke with nursing and received an update on Sepideh's status. Spoke with Francois, Sepideh's son, via phone. [phone]. Francois lives locally about 10 min from [facility]. Updated Francois on Sepideh's current condition. Allowed him to ask questions. He reports he has not spoken yet with any of his family members. Discussed previous POLST form from 2021 which states DNR. Francois reports that at this time he wants Sepideh to remain a full code. He is hopeful that she will be able to improve some to her prior baseline. Discussed her chronic illness and repeat admissions. Francois verbalized that he knows each time she gets sick she loses ground freom her prior baseline. He wishes at this time to keep her a full code. Will continue to offer gentle education about advanced care planning and disease trajectory. Updated nursing. FAST score: 7a KPS: 20% PPS: 30%
--- NOTE | 2022-12-09 14:48 | NUR ---
UPDATE MD NOTIFIED PT UNABLE TO TAKE PO MEDS. ORDERS TO CHANGE KEPPRA ORDER TO IV. HOLDING ALL OTHER PO MEDICATIONS AT THIS TIME.
[2022-12-09 14:49] LABS: Adenovirus F 40/41 Not Detected (NOT DETECT); Astrovirus Not Detected (NOT DETECT); Campylobacter Sp Not Detected (NOT DETECT); Cryptosporidium Not Detected (NOT DETECT); Cyclospora Cayetanensis Not Detected (NOT DETECT); E. Coli O157 Not Detected (NOT DETECT); Entamoeba Histolytica Not Detected (NOT DETECT); Enteroaggregative E. coli-EAEC Not Detected (NOT DETECT); Enteropathogenic E. coli-EPEC Not Detected (NOT DETECT); Enterotoxigenic E. coli-ETEC Not Detected (NOT DETECT); Giardia Lamblia Not Detected (NOT DETECT); Norovirus GI/GII Not Detected (NOT DETECT); Plesiomonas Shigelloides Not Detected (NOT DETECT); Rotavirus A Not Detected (NOT DETECT); Salmonella Sp Not Detected (NOT DETECT); Sapovirus Not Detected (NOT DETECT); Shiga Toxin-prod E. coli-STEC Not Detected (NOT DETECT); Shigella/Enteroin E. coli-EIEC Not Detected (NOT DETECT); Vibrio Cholerae Not Detected (NOT DETECT); Vibrio Sp Not Detected (NOT DETECT); Yersinia Enterocolitica Not Detected (NOT DETECT)
[2022-12-09 15:33] LABS: PO2 Arterial 66.5 mmHg (80-100); pH Blood Arterial 7.41 (7.35-7.45)
--- NOTE | 2022-12-09 17:27 | NUR ---
UPDATE PT BECOMING MORE ALERT. OFF BIPAP AT THIS TIME ON 4 L VIA NC. O2 AT 91%. OK TO HAVE PT OFF BIPAP UNTIL EVENING PER RT LONG PT REMAINS ALERT. ONCE PT BEGINS TO SLEEP OR BECOME LETHARGIC ORDERS TO PLACE PT BACK ON BIPAP. PT AWARE OF NAME. FORM TAMPER AND THIS RN ATTEMPTED BEDSIDE SWALLOW EVAL. PT ABLE TO HANDLE THICKENED LIQUIDS AND APPLESAUCE. HOSPITALIST NOTIFIED OF PT IMPROVEMENT IN MENTATION AND PASSING BEDSIDE SWALLOW EVAL. NG TUBE DC'D AT THIS TIME. WILL GIVE MEDS PO CRUSHED IN APPLESAUCE.
--- NOTE | 2022-12-09 18:12 | NUR ---
SHIFT SUMMARY SEE RN NOTES FOR UPDATES T/O SHIFT. PT CURRENLTY ALERT AND ORIENTED TO SELF. MUMBLING TO SELF. OCC PULLING AT LINES AND TUBING. UNABLE TO RE-DIRECT. PT SLEEPING ON AND OFF. ABLE TO HANDLE THICKENED LIQUIDS AND APPLESAUCE. ORAL CARE DONE T/O SHIFT Q 4 HRS. PT REPOSITIONED Q 2 HRS AND NEEDED FOR COMFORT. RECTAL TUBE PLACED D/T LIQUID DIARRHEA, AWARE . STOOL SAMPLE SENT TO LAB. CDIFF NEGATIVE. DEPENDS IN PLACE. PT INCONTINENT OF URINE. PT CURRENTLY ON BIPAP AT 18/8 AND 50% FIO2. PT ABLE TO DARIAN NC ON 5 L FOR ROUGHLY 30 MIN BEFORE DESATTING DOWN TO 83%. BED ALARM IN PLACE. CALL LIGHT WITHIN REACH. BED IN LOWEST POSITION. WILL CONT TO MONITOR UNTIL REPORT GIVEN TO NIGHTSHIFT RN.
--- NOTE | 2022-12-09 18:34 | NUR ---
UPDATE CITLALY TO FAX PT HX AND MED LIST TO [facility]
--- NOTE | 2022-12-09 19:58 | NUR ---
ASSUMED PT CARE FROM RJ SAUER ON DAYSHIFT. PT RESTING IN BED. PT IS MUMBLING AND FIDGETING WITH BEDSHEETS AND PULSE OXIMETER. PER [place] PT IS ORIENTED TO SELF ONLY AT BASELINE, UNABLE TO FOLLOW DIRECTIONS OR MAKE NEEDS KNOWN. BIPAP IN PLACE AT 18/8 & 50%, SATS BETWEEN 97 AND 99% AT THIS TIME. WILL MONITOR. BP ELEVATED BUT UNABLE TO TELL IF THIS IS FROM CONSTANT FIDGETING, WILL MONITOR.
--- NOTE | 2022-12-09 22:27 | NUR ---
PT'S BP CONTINUES TO BE ELEVATED EVEN WHEN AT REST. DR. RODRIGUES CALLED AND REQUESTED MEDICATIONS FOR ELEVATED BP. STATES SHE IS GOING TO ROUND OF PT. WILL MONITOR.
--- NOTE | 2022-12-09 23:54 | NUR ---
MEDICATED FOR HIGH BP PER DR. WOLF'S INSTRUCTIONS. GOOD RESULTS OBTAINED. WILL CONTINUES TO MONITOR.
[2022-12-10] VITALS (8 sets, daily range): BP systolic 128–169; BP diastolic 50–142
--- NOTE | 2022-12-10 00:39 | NUR ---
BP IMPROVED. PT RESTING COMFORTABLY IN BED WITH EYES CLOSED. 02 SATS >92% ON BIPAP.
[2022-12-10 04:17] LABS: BASOPHILS ABSOLUTE AUTO 0.05 K/mm3 (0.00-0.23); BASOPHILS PERCENT AUTO 1 % (0-2); EOSINOPHILS ABSOLUTE AUTO 0.04 K/mm3 (0.00-0.68); EOSINOPHILS PERCENT AUTO 0 % (0-6); Hematocrit 29.7 % (33.0-51.0); Hemoglobin 9.5 g/dL (11.5-16.0); IMMATURE GRAN PERCENT AUTO 2 % (0-1); LYMPHOCYTES ABSOLUTE AUTO 1.18 K/mm3 (0.84-5.20); LYMPHOCYTES PERCENT AUTO 13 % (21-46); MONOCYTES ABSOLUTE AUTO 1.38 K/mm3 (0.16-1.47); MONOCYTES PERCENT AUTO 15 % (4-13); Mean Corpuscular HGB 32.2 pg (26.0-34.0); Mean Corpuscular Volume 101 fL (80-100); Mean Platelet Volume 9.3 fL (9.1-12.4); NEUTROPHILS ABSOLUTE AUTO 6.16 K/mm3 (1.96-9.15); NEUTROPHILS PERCENT AUTO 68 % (41-73); NRBC ABSOLUTE 0.03 K/mm3 (0.00-0.02); NRBC Auto 0.3 /100 WBC (0.0-0.2); Platelet Count 183 K/mm3 (150-400); RDW Coefficient Variation 11.9 % (11.7-14.2); RDW Standard Deviation 44.4 fL (35.1-46.3); Red Blood Cell Count 2.95 M/mm3 (3.80-5.20); White Blood Cell Count 9.01 K/mm3 (4.00-11.30)
[2022-12-10 04:41] LABS: Albumin, Blood 2.3 g/dL (3.4-5.0); Albumin/Globulin Ratio 0.5 (0.8-1.8); Bilirubin, Total 0.3 mg/dL (0.1-1.0); Bun/Creatinine Ratio 35.9 (12.0-20.0); Calcium, Blood 9.3 mg/dL (8.5-10.1); Creatinine, Blood 0.84 mg/dL (0.40-1.00); Globulin, Blood 4.3 g/dL (2.2-4.0); Phosphorus, Blood 1.9 mg/dL (2.5-4.9); Potassium, Blood 3.5 mmol/L (3.5-5.5); Total Protein, Blood 6.6 g/dL (6.4-8.2)
--- NOTE | 2022-12-10 05:11 | NUR ---
NO CHANGES NOTED IN PT CONDITION SINCE PERVIOUS NOTE. RESTING COMFORTABLY IN BED. CALL LIGHT IN REACH. BED ALARM ON.
[2022-12-10 11:15] LABS: PCO2 Arterial 62 mmHg (35-45); PO2 Arterial 65 mmHg (80-100); pH Blood Arterial 7.44 (7.35-7.45)
--- NOTE | 2022-12-10 18:14 | NUR ---
SHIFT SUMMARY ALERT IN AM, LETHARGIC IN AFTERNOON. ORIENTED TO SELF, MUMBLES INCOHERENTLY AT TIMES. ABLE TO ANSWER SOME BASIC YES OR NO QUESTIONS. REQUIRES BIPAP AT NIGHT, FIO2 TITRATED DOWN TO 40%. NC WHEN AWAKE AT 3L HH O2 VIA NC. ABG'S NEARLY UNCHANGED SINCE YESTERDAY 12/09/22. TOLERATED BITES OF MEALS, APPLESAUCE PLUS WHOLE PILLS. PUREWICK IN PLACE, NO VOID THIS SHIFT, STRAIGHT CATH AT 1745 WITH 575 OUT. WILL CONTINUE TO MONITOR. UPDATE GIVEN TO CITLALY. TELE SINUS LAURI 50-70. ATTENDS CHANGED PRN, BM THIS SHIFT.
--- NOTE | 2022-12-10 18:15 | NUR ---
Attempted to return phone call to pt's son. Left a message, will attempt again in the am. Report from CAMACHO Coello.
[2022-12-11] VITALS (7 sets, daily range): BP systolic 104–139; BP diastolic 45–101
--- NOTE | 2022-12-11 06:55 | NUR ---
SHIFT SUMMARY PT MENTATION REMAINS UNCHANGED, ORIENTED TO SELF. PT OCCASSIONALLY OPENS EYES AND IS AWAKE HOWEVER SPEECH IS MUMBLED AND INCOHERENT. PT DOES ANSWER SOME Y/N QUESTIONS APPROPRIATELY. VSS; HR SR/SB 50 - 60'S. PT REMAINS ON BIPAP 16/10 AT 60% FIO2. BED BATH COMPLETED. NO ACUTE CHANGES THIS SHIFT. WILL UPDATE ONCOMING RN
[2022-12-11 08:58] LABS: PO2 Arterial 79.2 mmHg (80-100); pH Blood Arterial 7.39 (7.35-7.45)
[2022-12-11 09:00] LABS: PCO2 Arterial 71.7 mmHg (35-45)
--- NOTE | 2022-12-11 10:00 | NUR ---
AM NOTE: PT ALERT AND ORIENTED X1-2. ABLE TO ANSWER SOME QUESTIONS. MUMBLES WITH RESPONSES, DOES BETTER WITH YES/NO QUESTIONS. PT ON BIPAP SETTINGS 16/10 50% FIO2. PT SATTING IN THE LOW TO MID 90'S. PT ABLE TO TOLERATE SMALL BREAKS FROM BIPAP WITH HI-FLOW NC AT 6-8L. SBP IN THE 130'S HRR 60'S. PT HAS NO C/O SOB, CHEST PAIN OR PRESSURE. PT ABLE TO TOLERATE MEALS WITH NO N/V AND ABLE TO TAKE PO MEDS WITH APPLESAUCE. PT HAS POWERGLIDE IN OSBALDO THAT IS PATENT AND SALINE LOCKED AT THIS TIME. PT HAS A PUREWICK IN PLACE THAT IS DRAINING YELLOW URINE. NO SKIN ISSUES. WILL CONTINUE TO MONITOR T/O THE SHIFT.
--- NOTE | 2022-12-11 12:57 | NUR ---
Spoke with pt's son Francois, gave him an update on his mom's status. He had a lot of questions about CHF, and wanted to better understand why a person would retain C02. He isn't sure if pt is currently on CPAP, which is one of Dr. Rowell's current questions. Pt is currently dependent on CPAP, but appears to be tolerating it well. Son Francois stated he changed her code status back to full code. He states he felt it was too soon to make any drastic decisions if she ended up having a "simple pneumonia" and could be returned to baseline quickly. Francois asked what kind of diet pt was on. Provided education regarding bipap dependency, and explained she will receive IV fludids for now. He also v/u that she may or may not return to her previous level of functioning, and will need ST eval prior to being placed back on a diet. Will continue to keep him updated, and remain involved in care.
--- NOTE | 2022-12-11 18:15 | NUR ---
SHIFT SUMMARY: PT CONTINUES TO REMAIN A&O X 1-2 WITH BOUTS OF CONFUSION AND HALLUCINATIONS. PT REMAINS ON BIPAP WITH SETTINGS 16/10, 55 % FIO2. PT RECEIVED MULTIPLE BREAKS FROM BIPAP FOR MEALS AND ORAL CARE WHILE ON NC AT 6-8L. PT DESATS WITH EXERTION TO THE LOW 80'S. WITH REST PT SATTING IN THE MID TO HIGH 90'S. PT SOMNOLENT AFTER SEROQUEL AND DESATTING TO THE LOW TO MID 80'S. RT AT THE BEDSIDE TO REASSESS AND ADMINISTER BREATHING TREATMENT. KYRIE CAME TO SEE THE PT AND DROPPED OFF A ASTRAL MACHINE FOR THE PT TO TRIAL WITH 6L 02 BLED IN, UNABLE TO TOLERATE WITH SATS IN THE 80'S AT THIS TIME, SWITCHED BACK TO BIPAP. SBP IN THE 130'S WITH NO C/O CHEST PAIN OR PRESSURE. HR IN THE 70'S. PT CONTINUES TO HAVE A PUREWICK IN PLACE WHICH IS DRAINING YELLOW URINE. PT SON AT THE BEDSIDE THIS AFTERNOON AND UPDATED TO PLAN OF CARE. WILL CONTINUE TO MONITOR AND GIVE REPORT TO PHILIP MATTHEW RN.
--- NOTE | 2022-12-11 19:48 | NUR ---
ASSUMED CARE: ASSUMED CARE OF PT APPROX 1914. PT DROWSY, RESTING IN BED. PT ON BIPAP, SETTINGS 16/10, 60% FIO2. SPO2 >90% ON BIPAP. SBP 131. HR 70'S, NSR. NO REPORTED CP/PRESSURE. PUREWICK IN PLACE DRAINING YELLOW URINE. POWERGLIDE IN OSBALDO, SALINE LOCKED. PT ABLE TO TAKE PO MEDS WITH APPLESAUCE. RESPIRATORY THERAPIST AT BEDSIDE. CALL LIGHT WITHIN REACH. NO FURTHER NEEDS AT THIS TIME.
[2022-12-12 04:00] VITALS: BP 113/70
--- NOTE | 2022-12-12 05:26 | NUR ---
SHIFT SUMMARY: PT MENTATION REMAINS UNCHANGED. ABLE TO ANSWER SOME YES/NO QUESTIONS. CONFUSED AND VISIBLY AGITATED AT TIMES. PT ON BIPAP 13/05, 45%. SPO2 >95%. BP STABLE. HR CHANGED FROM NSR TO AFIB APPROX 22:00 WITH HR 110'S. INCREASES TO 130-140'S AT TIMES. CALL PLACED TO MD WOLF. MD WOLF WITH ORDERS FOR METOPROLOL TARTRATE 25MG. ADMINISTERED PER EMAR. PUREWICK IN PLACE DRAINING YELLOW URINE. POWERGLIDE IN OSBALDO, SALINE LOCKED. CALL LIGHT WITHIN REACH. NO FURTHER NEEDS AT THIS TIME.
[2022-12-12 05:42] LABS: Hematocrit 30.1 % (33.0-51.0); Hemoglobin 9.5 g/dL (11.5-16.0); Mean Corpuscular HGB Conc 31.6 g/dL (31.5-36.5); Mean Corpuscular Volume 101 fL (80-100); Mean Platelet Volume 9.3 fL (9.1-12.4); Platelet Count 195 K/mm3 (150-400); RDW Coefficient Variation 12.3 % (11.7-14.2); RDW Standard Deviation 45.8 fL (35.1-46.3); Red Blood Cell Count 2.97 M/mm3 (3.80-5.20); White Blood Cell Count 10.05 K/mm3 (4.00-11.30)
[2022-12-12 05:48] LABS: Albumin, Blood 2.2 g/dL (3.4-5.0); Anion Gap 5 mmol/L (6-16); Blood Urea Nitrogen 38 mg/dL (8-24); Bun/Creatinine Ratio 29.7 (12.0-20.0); CO2, Blood 39 mmol/L (21-32); Calcium, Blood 9.3 mg/dL (8.5-10.1); Chloride, Blood 102 mmol/L (98-108); Creatinine, Blood 1.28 mg/dL (0.40-1.00); Glomerular Filtration Rate 43 (60-); Glucose, Blood 184 mg/dL (70-99); Potassium, Blood 3.2 mmol/L (3.5-5.5); Sodium, Blood 146 mmol/L (136-145)
[2022-12-12 07:28] VITALS: BP 133/112
--- NOTE | 2022-12-12 10:19 | NUR ---
AM NOTE: PT ALERT AND ORIENTED X 1-2. ABLE TO STATE NAME BUT JUST MUMBLES WHEN ASKED QUESTIONS. PT HAS CONFUSION AND HALLUCINATIONS. SBP 130'S WITH HR IN THE 80'S IN SINUS RHYTHM. PT DENIES ANY CHEST PAIN, PRESSURE OR SHORTNESS OF BREATH. PT CURRENTLY ON NASAL CANNULA AT 2 L WITH SPO2 MAINTAINING GREATER THAN 90%. PT HAD PT/OT EVAL AND IS AWAITING A SPEECH EVAL. PT MADE MEDICAL STATUS WITH TELE PER DR. LEE. ABLE TO TOLERATE BREAKFAST AND PO MEDICATION THIS MORNING WITH APPLESAUCE. PT UP IN THE CHAIR WITH A LIFT ASSIST. PT HAS A POWERGLIDE IN THE OSBALDO WHICH IS PATENT AND SALINE LOCKED. WILL CONTINUE TO MONITOR.
--- NOTE | 2022-12-12 15:49 | NUR ---
TRANSFER SUMMARY: PT TRANSFERRED TO MEDICAL FLOOR RM 348 @ [id number]. REPORT GIVEN TO ELIZABETH SAUER. NO ACUTE EVENTS SINCE AM NOTE. PT CONTINUES TO REMAIN ON 2L NC WITH SPO2 >90. NO C/O SOB, CHEST PAIN OR PRESSURE. SBP 140'S WITH HRR 80-90'S. ALL BELONGINGS SENT WITH THE PT, WILL NOTIFY SON OF HER TRANSFER.
[2022-12-12 17:11] VITALS: BP 144/79
--- NOTE | 2022-12-12 17:19 | NUR ---
SHIFT SUMMARY PT TRANSFERED TO ROOM THIS AFTERNOON FROM PCU. 2 RN SKIN CHECK COMPLETED WITH SAMSON Bell RN. PT RESTING IN BED WITH 2L O2 VIA NC IN PLACE. CONT PULSE OX IN PLACE. ASTRAL AIRPORT LOCATION MANAGER BY RT FOR SLEEPING. CALL LIGHT IN REACH.
[2022-12-12 19:50] VITALS: BP 139/96
[2022-12-12] MEDS ORDERED: Levetirace100 MG/1 M PO (22:37)
[2022-12-13] VITALS (8 sets, daily range): BP systolic 123–200; BP diastolic 68–158
--- NOTE | 2022-12-13 04:36 | NUR ---
SHIFT SUMMARY ADMIT FOR ACUTE RESPIRATORY FAILURE, PNA, DSAT W/EXURSION. WANTS 02 AT OR ABOVE 88%. WHEELCHAIR, BED BOUND. ON 4LPM NC. USING PUREQICK. A&O TO PERSON, AND SELF. PILLS NEED TO BE CRUSHED IN APPLESAUCE. HR IS AT SR WITH MULTIFORM PVC'S AND 86 BPM. MECHANICAL LIFT NEEDED FOR TRANSFERRING. MUMBLES WHEN ANSWERING QUESTIONS. USES WRONG WORDS. YES/NO QUESTIONS ABLE TO BE ANSWERED EASILY. USE OF ASTRAL BREATHING MACHINE NEEDED WHEN TRYING TO TALK, EAT, AND WIPE HER MOUTH THE SAME. ESSENTIAL TO USE WHEN SLEEPING.
[2022-12-13 05:28] LABS: Hematocrit 28.8 % (33.0-51.0); Hemoglobin 9.1 g/dL (11.5-16.0); Mean Corpuscular HGB Conc 31.6 g/dL (31.5-36.5); Mean Corpuscular Volume 101 fL (80-100); Mean Platelet Volume 9.1 fL (9.1-12.4); Platelet Count 183 K/mm3 (150-400); RDW Coefficient Variation 12.3 % (11.7-14.2); RDW Standard Deviation 46.4 fL (35.1-46.3); Red Blood Cell Count 2.84 M/mm3 (3.80-5.20); White Blood Cell Count 11.96 K/mm3 (4.00-11.30)
[2022-12-13 05:49] LABS: Albumin, Blood 2.2 g/dL (3.4-5.0); Anion Gap 3 mmol/L (6-16); Blood Urea Nitrogen 31 mg/dL (8-24); Bun/Creatinine Ratio 30.7 (12.0-20.0); CO2, Blood 41 mmol/L (21-32); Calcium, Blood 9.3 mg/dL (8.5-10.1); Chloride, Blood 105 mmol/L (98-108); Creatinine, Blood 1.01 mg/dL (0.40-1.00); Glomerular Filtration Rate 57 (60-); Glucose, Blood 141 mg/dL (70-99); Phosphorus, Blood 2.4 mg/dL (2.5-4.9); Potassium, Blood 3.4 mmol/L (3.5-5.5); Sodium, Blood 149 mmol/L (136-145)
--- NOTE | 2022-12-13 05:50 | NUR ---
CTA/FIBER OPTIC SPLICER I HAVE READ THIS FIBER OPTIC SPLICER'S DOCUMENTATION AND I AGREE. SHIFT SUMMARY IN FIBER OPTIC SPLICER NOTE
[2022-12-13] MEDS ORDERED: METO50 PO (14:03)
[2022-12-13] MEDS ORDERED: ALBU2.5V5 INH (14:04)
[2022-12-13] MEDS ORDERED: VISBIOME 112.51 EACH PO (14:05)
[2022-12-13] MEDS ORDERED: MIRALAX17 GM PO (14:05)
[2022-12-13] MEDS ORDERED: CEFD300 PO (14:05)
[2022-12-13] MEDS ORDERED: IPRAT-ALBUT 0.5-3 ML INH (14:05)
--- NOTE | 2022-12-13 14:20 | NUR ---
Conference: Spoke to pt's son Francois yesterday. He calls this trip to the hospital a "one time thing" regarding changing her code status to full code. He stated he wants to change her code status back to DNR prior to returning to [facility]. He admits he was caught off guard when making the decision when she was brought to the hospital on 12/09. Today we spoke again at length and we discussed continuous churn buttermaker goals of care. Francois states he knows his mom's dementia is advancing, and he doesn't want her to continue coming to the hospital. He wasn't aware of what hospice is, but once I explained it, he was very much on board with an evaluation and admit to hospice if appropriate. He didn't have an agency preference, deferred to facility, who chose [facility] hospice. Sugar Mixer Annmarie notified, and pt to d/c home with hospice.
--- NOTE | 2022-12-13 16:54 | NUR ---
SHIFT SUMMARY PT IS A 77 YR OLD FEMALE HERE FOR ACUTE RES. FAILURE. RESIDES AT [facility]. BED AND WHEELCHAIR BOUND BASELINE. BIPAP INITATED WITH GOOD BENEFIT; SOMNOLENCE USE. NC AT 2 L WHEN AWAKE. PT HAS BEEN ALERT AND COOPERATIVE WITH THE EXCEPTION OF CONFUSION. SHE IS ORIENTED TO SELF. REQUIRES ASSISTANCE WITH FEEDING AND DRINKING, WILL OCCASSIONALLY COUGH WITH LIQUIDS WHEN DRANK THROUGH A STRAW AND HARSH COUGHING FITS WILL CAUSE EPITAXIS ON THE L SIDE THAT SUBSIDE QUICKLY. PER NURSE AT [facility] THIS IS AN OCCURING THING. SPEECH THERAPY NOTIFIED OF COUGHING FITS AFTER DRINKING FLUIDS. PUREWICK IN PLACE, PATIENT RESTING AT THIS TIME. PTS SON DRAKE CAME TO VISIT THIS AFTERNOON, NO QUESTIONS OR CONCERNS AT THIS TIME. PLAN IS TO D/C 12/14 ON HOSPICE.
--- NOTE | 2022-12-13 18:34 | NUR ---
CALLED TRISHA AT [facility]. SHE STATED SHE SPOKE TO CARE MANAGEMENT AND THE PLAN FOR THE PT DISCHARGE HAS CHANGED. PT IS GOING TO DC TOMORROW MORNING ON [facility]. PT SON ARRIVED AND STATED THE SAME. SPOKE TO PALLIATIVE CARE RN WHO STATED SHE HAD SPOKE TO THE PT SON AND THE PLAN IS TO DISCHARGE TOMORROW ON HOSPICE.
[2022-12-14 03:39] VITALS: BP 144/81
--- NOTE | 2022-12-14 06:23 | NUR ---
Shift Summary Pt very lethargic at start of shift, difficult to rouse. Once awake pt she is cooperative with care, AOx1. On 2L NC t/o the night, did not want to put bi-pap mask back on. On cont. Biox, O2 sat>92% even while asleep with NC. Plan is to D/C today to [facility] hospice. Pt currently asleep and very difficult to rouse, unable to give AM medication.
[2022-12-14 07:16] VITALS: BP 146/74
--- NOTE | 2022-12-14 08:43 | NUR ---
PT O2 DESAT WITH SLEEP AT 0820, 82% VICKI SCOTT RN IN TO PLACE PT ON CPAP, PT BACK UP TO 92%. AT 0826 PT CONTINUES TO DESAT TO 82%, RT KAITLYN CALLED AND IN ROOM. O2 INCREASED AT O2 RECOVERED TO 97%. PT AROUSING MINIMALLY TO TACTILE STIMULATION THEN FALLS BACK ASLEEP. THIS NURSE HOLDING ORAL MEDS AT THIS TIME. PT 58 ON TELE, SINUS LAURI AT THIS TIME.
--- NOTE | 2022-12-14 13:58 | NUR ---
DISCHARGE SUMMARY PT DISCHARGED TO [facility]. PT LEFT ROOM VIA [facility]SPORT AT 1353. ALL BELONINGS RETURNED, HOWEVER TRILOGY MACHINE GIVEN TO PAPER STRIPPER DARIA TO ARRANGE QUANTITATIVE STRATEGY ANALYST FROM [facility]. REINA AND WENDYGLVIKTOR RAUSCH'Najma RICO [phone] NOTIFIED OF DISCHARGE TIME.
== END 2022-12-14 13:58 | disposition hospice, home (50) | DRG 177 ==
LOC: ER 05:01 → PCU 05:02 → MEDS 12-12 15:42 → ENPENDDIS 12-13 13:30 → MEDS 12-14 13:58
PROVIDERS: Internal Medicine; Student in an Organized Health Care Education/Training Program; ADMIT Student in an Organized Health Care Education/Training Program
PROC: 4A133R1 Monitoring of Arterial Saturation, Peripheral, Percutaneous Approach (ICD-10-PCS; principal; 2022-12-09)
PROC: 5A09457 Assistance with Respiratory Ventilation, 24-96 Consecutive Hours, Continuous Positive Airway Pressure (ICD-10-PCS; 2022-12-09)
DX: J69.0 Pneumonitis due to inhalation of food and vomit (principal); I50.31 Acute diastolic (congestive) heart failure; J96.21 Acute and chronic respiratory failure with hypoxia; J96.22 Acute and chronic respiratory failure with hypercapnia; F05 Delirium due to known physiological condition; I13.0 Hypertensive heart and chronic kidney disease with heart failure and stage 1 through stage 4 chronic kidney disease, or unspecified chronic kidney disease; E87.0 Hyperosmolality and hypernatremia; N17.9 Acute kidney failure, unspecified; I48.92 Unspecified atrial flutter; Z51.5 Encounter for palliative care; E87.6 Hypokalemia; E83.39 Other disorders of phosphorus metabolism; I48.91 Unspecified atrial fibrillation; F03.90 Unspecified dementia, unspecified severity, without behavioral disturbance, psychotic disturbance, mood disturbance, and anxiety; R19.7 Diarrhea, unspecified; E03.9 Hypothyroidism, unspecified; E11.22 Type 2 diabetes mellitus with diabetic chronic kidney disease; N18.9 Chronic kidney disease, unspecified; I25.10 Atherosclerotic heart disease of native coronary artery without angina pectoris; F25.9 Schizoaffective disorder, unspecified; E11.40 Type 2 diabetes mellitus with diabetic neuropathy, unspecified; G47.33 Obstructive sleep apnea (adult) (pediatric); I27.20 Pulmonary hypertension, unspecified; Z96.641 Presence of right artificial hip joint; Z99.3 Dependence on wheelchair; Z74.01 Bed confinement status; Z99.81 Dependence on supplemental oxygen; Z98.890 Other specified postprocedural states; Z88.0 Allergy status to penicillin; Z79.4 Long term (current) use of insulin; Z79.2 Long term (current) use of antibiotics; Z79.82 Long term (current) use of aspirin; Z79.890 Hormone replacement therapy; Z79.899 Other long term (current) drug therapy
CPT/HCPCS: 36600; 71045; 80053; 80069; 82803; 82947; 83880; 84100; 84145; 85025; 85027; 87507; 92526; 92610; 93005; 93010; 93306; 94640; 94660; 94664; 94762; 96365; 96366; 96367; 96372; 96375; 96376; 97165; 97530; 99285-25; A9270; C1751; G0378; J0360; J0456; J0696; J1650; J1815; J1940; J1953; J7050; J7060